=== PATIENT | female | born 1940 | race Caucasian/White ===

== ENCOUNTER 2017-04-01 09:29 | Inpatient (IN) | payer MEDICARE, OTHER ==
[2017-04-01] VITALS (15 sets, daily range): BP systolic 93–139; BP diastolic 52–73; PULSE 81–187; RESP 16–20; TEMP 98.6–99.9; O2SAT 90–100
[~2017-04-01] VITALS: Ht 160 cm; Wt 67.0 kg
[~2017-04-01 09:29] MED LIST: AMLO5CAP PO; GABA100C4 PO; GLUCTAB PO; LORTA5 PO; LOSA50 PO; NEXI40CA PO; PREG25 PO; WALKMIS6 XX
[2017-04-01] MEDS ORDERED: CEFEPIME INJ 2,000 MG in SODIUM CHLORIDE 0.9% INJ 100 ML IV STA (09:46)
[2017-04-01] MEDS ORDERED: VANCOMYCIN INJ 1,000 MG in SODIUM CHLOR 0.9% 250 ML INJ 250 ML IV STA (09:46)
[2017-04-01] MEDS ORDERED: SODIUM CHLOR 0.9% 1000 ML INJ 1,000 ML IV ONE ×3 (09:46→13:30)
[2017-04-01] MEDS ORDERED: SODIUM CHLOR 0.9% 1000 ML INJ 100 ML IV ONE (09:46)
[2017-04-01] MEDS ORDERED: RESP: ALBUTEROL 2.5 MG/IPRATROPIUM 0.5 MG NEB (SCH) INH ONE (10:00)
[2017-04-01] MEDS ORDERED: ACETAMINOPHEN 650 MG SUPP RECTAL ONE (10:00)
[2017-04-01] MEDS ORDERED: SODIUM CHLORIDE 0.9% FLUSH 10 ML FLUSH IVF PRN (10:00)
[2017-04-01] MEDS ORDERED: DILTIAZEM HCL 25 MG/5 ML VIAL IV PUSH ONE ×2 (10:00→12:15)
--- NOTE | 2017-04-01 10:15 | PD ---
HPI Chief Complaint: General Weakness Time Seen by Provider: 09:38 Travel History International Travel<30 days: No Contact w/Intl Traveler<30days: No Traveled to known affect area: No History of Present Illness HPI PATIENT INCREASED WEAKNESS, FEBRILE AT [facility], SENT VIA [facility], PER [facility] REPORTED AFIB WITH RVR IN 160'S, NO CARDIZEM GIVEN, TRANSPORTED HERE. PFSH Past Medical History Hx Anticoagulant Therapy: Yes Arthritis: Yes Asthma: No Atrial Fibrillation: Yes Autoimmune Disease: No Blood Disorders: No Anxiety: No Depression: No Heart Rhythm Problems: No Cancer: No Cardiovascular Problems: Yes High Cholesterol: No Chest Pain: Yes Congestive Heart Failure: Yes COPD: No Cerebrovascular Accident: Yes (TIA 2016) Diabetes: Yes Patient Takes Glucophage: Yes Diminished Hearing: No Endocrine: Yes Gastrointestinal Disorders: Yes (takes nexium) GERD: Yes Genitourinary: No Herniated Disk: Yes Hypertension: Yes Immune Disorder: No Implanted Vascular Access Dvce: Yes Musculoskeletal: Yes (OSTEOPENIA) Neurologic: Yes Psychiatric: No Reproductive: No Respiratory: Yes Sleep Apnea: No Ulcer: Yes Tetanus Vaccination: < 5 Years Influenza Vaccination: No Past Surgical History Abdominal Surgery: No AICD: No Appendectomy: Yes Arteriovenous Shunt: No Body Medical Devices: DENTAL IMPLANTS PLATES Cardiac Surgery: No Endocrine Surgery: No Eye Surgery: Yes Genitourinary Surgery: No Gynecologic Surgery: Yes Hysterectomy: Yes Insulin Pump: No Joint Replacement: Yes (BILATERAL KNEE REPLACEMENT) Neurologic Surgery: No Oral Surgery: Yes Pacemaker: No Thoracic Surgery: No Other Surgery: Yes Social History Alcohol Use: No (OCC WINE) Tobacco Use: No Substance Use: No Allergies-Medications (Allergen,Severity, Reaction): Coded Allergies: Contrast Media (Verified Allergy, Severe, VOMITING, 04/01/17) RASH, N&V Egg Allergy (Verified Allergy, Severe, VOMITING, 04/01/17) Iodine (Verified Allergy, Severe, VOMITING, 04/01/17) RASH, N&V Beta Blockers (Verified Adverse Reaction, Severe, HEADACHES, 04/01/17) Reported Meds & Prescriptions Reported Meds & Active Scripts Active Reported Duoneb (Ipratropium-Albuterol Neb) 0.5-2.5 Mg/3 Ml Neb 1 Nebule INH Q8HR NEB Lyrica (Pregabalin) 100 Mg Cap 100 Mg PO BID Losartan (Losartan Potassium) 100 Mg Tab 100 Mg PO DAILY Novolog Flexpen Inj (Insulin Aspart) 300 Unit/3 Ml Pen 1 Units SQ Tramadol (Tramadol HCl) 50 Mg Tab 50 Mg PO Q6H PRN Prednisone 5 Mg Tab 5 Mg PO DAILY Spiriva Handihaler (Tiotropium Inh) 18 Mcg Cap 18 Mcg INH DAILY 1 capsule = 18 mcg Hydralazine (Hydralazine HCl) 50 Mg Tab 50 Mg PO TID Take with a meal Nifedipine ER 24 HR (Nifedipine) 60 Mg Tab 60 Mg PO DAILY Nifedipine ER (Nifedipine) 90 Mg Tab Torsemide 10 Mg Tab 10 Mg PO DAILY Isosorbide Mononitrate ER (Isosorbide Mononitrate) 30 Mg Santos 30 Mg PO DAILY Potassium Chloride ER (Potassium Chloride) 10 Meq Cap 10 Meq PO BID Omeprazole 20 Mg Tab 20 Mg PO DAILY Mirtazapine 15 Mg Tab 15 Mg PO HS Loratadine 10 Mg Tab 10 Mg PO DAILY Eliquis (Apixaban) 2.5 Mg Tab 2.5 Mg PO BID Fluticasone Nasal [place] 50 Mcg/Act Naspr 50 Mcg EACH NARE BID 50 mcg/spray Atorvastatin (Atorvastatin Calcium) 10 Mg Tab 10 Mg PO HS Dulcolax Supp (Bisacodyl) 10 Mg Supp 10 Mg RECTAL DAILY PRN Review of Systems ROS Limitations: Clinical Condition General / Constitutional: Positive: Fever Cardiovascular: Positive: Palpitations, Irregular Rhythm, Tachycardia Gastrointestinal: Positive: Nausea Physical Exam Narrative GENERAL: SKIN: Warm and dry. HEAD: Atraumatic. Normocephalic. EYES: Pupils equal and round. No scleral icterus. No injection or drainage. ENT: No nasal bleeding or discharge. Mucous membranes pink and moist. NECK: Trachea midline. No JVD. CARDIOVASCULAR: TACHYCARDIC, IRREGULAR RESPIRATORY: No accessory muscle use. RONCHI DIFFUSELY, GOOD TIDAL VOLUME, HYPOXEMIC ON RA 88-90 GASTROINTESTINAL: Abdomen OBESE, SOFT, NO GUARDING, NO RIGIDITY, BUT TT PERCUSSION. MUSCULOSKELETAL: Extremities without clubbing, cyanosis, or edema. No obvious deformities. NEUROLOGICAL: Awake and alert. No obvious cranial nerve deficits. Motor grossly within normal limits. Five out of 5 muscle strength in the arms and legs. Normal speech. PSYCHIATRIC: Appropriate mood and affect; insight and judgment normal. Data Data Last Documented VS Vital Signs Date Time Temp Pulse Resp B/P Pulse Ox O2 Delivery O2 Flow Rate FiO2 04/01/17 13:38 107 18 100/55 97 Nasal Cannula 4 04/01/17 09:36 99.9 Orders Complete Blood Count With Diff (04/01/17 09:46) Comprehensive Metabolic Panel (04/01/17 09:46) B-Type Natriuretic Peptide (04/01/17 09:46) Act Partial Throm Time (Ptt) (04/01/17 09:46) Prothrombin Time / Inr (Pt) (04/01/17 09:46) Magnesium (Mg) (04/01/17 09:46) Ckmb (Isoenzyme) Profile (04/01/17 09:46) Troponin I (04/01/17 09:46) Arterial Blood Gas (Abg) (04/01/17 09:46) Urinalysis - C+S If Indicated (04/01/17 09:46) Influenzae A/B Antigen (04/01/17 09:46) Blood Culture (04/01/17 09:46) Iv Access Insert/Monitor (04/01/17 09:46) Electrocardiogram (04/01/17 09:46) Ecg Monitoring (04/01/17 09:46) Oximetry (04/01/17 09:46) Oxygen Administration (04/01/17 09:46) Chest, Single Ap (04/01/17 09:46) Albuterol-Ipratropium Neb (Duoneb Neb) (04/01/17 10:00) Blood Pressure (04/01/17 09:46) Vital Signs (04/01/17 09:46) Diltiazem Inj (Cardizem Inj) (04/01/17 10:00) Diltiazem Inj (Cardizem Inj) (04/01/17 10:00) Sodium Chloride 0.9% Flush (Ns Flush) (04/01/17 10:00) Lactic Acid Sepsis Protocol (04/01/17 09:46) Urinary Catheter Insert/Apply (04/01/17 09:46) Vancomycin Inj (Vancomycin Inj) (04/01/17 09:46) Cefepime Inj (Maxipime Inj) (04/01/17 09:46) Acetaminophen Supp (Tylenol Supp) (04/01/17 10:00) Sodium Chlor 0.9% 1000 Ml Inj (Ns 1000 M (04/01/17 09:46) Sodium Chlor 0.9% 1000 Ml Inj (Ns 1000 M (04/01/17 09:46) Sodium Chlor 0.9% 1000 Ml Inj (Ns 1000 M (04/01/17 09:46) Ct Abd/Pel W/O Iv Contrast (04/01/17 10:05) NPO (04/01/17 10:05) Urine Culture (04/01/17 10:45) Diltiazem Inj (Cardizem Inj) (04/01/17 12:00) Sodium Chlorid 0.9% 500 Ml Inj (Ns 500 M (04/01/17 11:45) Diltiazem Inj (Cardizem Inj) (04/01/17 12:15) Sodium Chlor 0.9% 1000 Ml Inj (Ns 1000 M (04/01/17 13:30) Admit Order (Ed Use Only) (04/01/17 14:00) Labs Laboratory Tests Test 04/01/17 04/01/17 04/01/17 04/01/17 09:55 10:00 10:11 10:45 White Blood Count 10.5 TH/MM3 Red Blood Count 4.57 MIL/MM3 Hemoglobin 12.4 GM/DL Hematocrit 37.5 % Mean Corpuscular Volume 82.1 FL Mean Corpuscular Hemoglobin 27.1 PG Mean Corpuscular Hemoglobin 33.0 % Concent Red Cell Distribution Width 16.0 % Platelet Count 217 TH/MM3 Mean Platelet Volume 9.1 FL Neutrophils (%) (Auto) 86.0 % Lymphocytes (%) (Auto) 6.8 % Monocytes (%) (Auto) 6.1 % Eosinophils (%) (Auto) 0.4 % Basophils (%) (Auto) 0.7 % Neutrophils # (Auto) 9.0 TH/MM3 Lymphocytes # (Auto) 0.7 TH/MM3 Monocytes # (Auto) 0.6 TH/MM3 Eosinophils # (Auto) 0.0 TH/MM3 Basophils # (Auto) 0.1 TH/MM3 CBC Comment DIFF FINAL Differential Comment Prothrombin Time 11.6 SEC Prothromb Time International 1.0 RATIO Ratio Activated Partial 23.1 SEC Thromboplast Time Sodium Level 146 MEQ/L Potassium Level 3.4 MEQ/L Chloride Level 110 MEQ/L Carbon Dioxide Level 24.4 MEQ/L Anion Gap 12 MEQ/L Blood Urea Nitrogen 48 MG/DL Creatinine 1.98 MG/DL Estimat Glomerular Filtration 24 ML/MIN Rate Random Glucose 162 MG/DL Calcium Level 9.0 MG/DL Magnesium Level 1.7 MG/DL Total Bilirubin 0.5 MG/DL Aspartate Amino Transf 12 U/L (AST/SGOT) Alanine Aminotransferase 12 U/L (ALT/SGPT) Alkaline Phosphatase 83 U/L Total Creatine Kinase 44 U/L Troponin I 0.03 NG/ML B-Type Natriuretic Peptide 139 PG/ML Total Protein 6.3 GM/DL Albumin 2.8 GM/DL Lactic Acid Level 3.2 mmol/L Blood Gas Puncture Site RT RADIAL Blood Gas Patient Temperature 98.6 Blood Gas HCO3 23 mmol/L Blood Gas Base Excess -0.4 mmol/L Blood Gas Oxygen Saturation 91 % Arterial Blood pH 7.50 Arterial Blood Partial 29 mmHg Pressure CO2 Arterial Blood Partial 63 mmHG Pressure O2 Arterial Blood Oxygen Content 15.7 Vol % Arterial Blood 0.0 % Carboxyhemoglobin Arterial Blood Methemoglobin 0.4 % Blood Gas Hemoglobin 12.4 G/DL Oxygen Delivery Device NASAL CANNULA Blood Gas Liter Flow 4 L/M Urine Color YELLOW Urine Turbidity CLEAR Urine pH 6.0 Urine Specific [place] 1.014 Urine Protein NEG mg/dL Urine Glucose (UA) NEG mg/dL Urine Ketones NEG mg/dL Urine Occult Blood NEG Urine Nitrite NEG Urine Bilirubin NEG Urine Urobilinogen LESS THAN 2.0 MG/DL Urine Leukocyte Esterase SMALL Urine RBC 2 /hpf Urine WBC 7 /hpf Urine Bacteria MANY /hpf Urine Hyaline Casts 1 /lpf Microscopic Urinalysis Comment CULTURE INDICATED Test 04/01/17 13:40 Lactic Acid Level 3.7 mmol/L [facility] Medical Decision Making Medical Screen Exam Complete: Yes Emergency Medical Condition: Yes Differential Diagnosis SEPSIS SOURCE UNKNOWN CURRENTLY, R/O PNA, R/O UTI, AFIB WITH RVR DUE TO FEVER VS DEHYDRATION, Narrative Course BROUGHT IN FROM [place] BY EMS, PATIETN HAD FEVER AT [facility] WITH NAUSEA/ VOMITING...CURRENTLY AWAITING CT ABD ...as [address] abd Diagnosis Primary Impression: UTI (urinary tract infection) Qualified Code: N30.00 - Acute cystitis without hematuria Additional Impression: Atrial fibrillation with RVR Efrain Davies MD April 01, 2017 10:15
[2017-04-01 10:21] LABS: BLOOD GAS BASE EXCESS -0.4 mmol/L (-2-2); BLOOD GAS HCO3 23 mmol/L (22-26); BLOOD GAS METHEMOGLOBIN 0.4 % (0-2); BLOOD GAS O2 HGB SATURATION 91 % (90-100); BLOOD GAS OXYGEN CONTENT 15.7 Vol % (12.0-20.0); BLOOD GAS PCO2 29 mmHg (38-42); BLOOD GAS PO2 63 mmHG (61-120); BLOOD GAS TOTAL HGB 12.4 G/DL (12.0-16.0); TEMP CORR TO 98.6
[2017-04-01 10:22] LABS: CRITICAL VALUE NO; DRAW SITE RT RADIAL; LITER FLOW 4 L/M; NUMBER OF ARTERIAL PUNCTURES 1; OXYGEN DEVICE NASAL CANNULA; STAT YES
[2017-04-01 10:45] LABS: BASOPHIL # 0.1 TH/MM3 (0-0.2); BASOPHIL % 0.7 % (0.0-2.0); EOSINOPHIL % 0.4 % (0.0-4.0); HEMATOCRIT 37.5 % (35.0-46.0); HEMO FLAGS DIFF FINAL; LYMPH % 6.8 % (9.0-44.0); LYMPHOCYTE # 0.7 TH/MM3 (1.0-4.8); MEAN CELL VOLUME 82.1 FL (80.0-100.0); MEAN CORPUSCULAR HEMOGLOBIN 27.1 PG (27.0-34.0); MONO % 6.1 % (0.0-8.0); PLATELET COUNT 217 TH/MM3 (150-450); RED BLOOD COUNT 4.57 MIL/MM3 (4.00-5.30); WHITE BLOOD COUNT 10.5 TH/MM3 (4.0-11.0)
[2017-04-01] MEDS: DILTIAZEM INJ 125 MG in SODIUM CHLORIDE 0.9% INJ 100 ML IV SCH (10:46)
[2017-04-01 11:05] LABS: APTT (PATIENT) 23.1 SEC (24.3-30.1); PROTHROMBIN TIME - PATIENT 11.6 SEC (9.8-11.6)
[2017-04-01 11:06] LABS: ALT (GPT) 12 U/L (10-53); ANION GAP 12 MEQ/L (5-15); AST (GOT) 12 U/L (15-37); BICARBONATE 24.4 MEQ/L (21.0-32.0); BLOOD UREA NITROGEN 48 MG/DL (7-18); CHLORIDE 110 MEQ/L (98-107); GLOMERULAR FILTRATION RATE 24 ML/MIN (>89); MAGNESIUM 1.7 MG/DL (1.5-2.5); POTASSIUM 3.4 MEQ/L (3.5-5.1); SODIUM (NA) 146 MEQ/L (136-145)
[2017-04-01 11:09] LABS: ALKALINE PHOSPHATASE 83 U/L (45-117); TOTAL BILIRUBIN ADULT 0.5 MG/DL (0.2-1.0)
[2017-04-01 11:15] LABS: BACTERIA, URINE MANY /hpf; BLOOD, URINE NEG (NEG); COMMENT (UR) CULTURE INDICATED; CULTURE IF INDICATED CULTURE INDICATED; GLUCOSE,URINE NEG (NEG); HYALINE CAST, URINE 1 /lpf (RARE); KETONE, URINE NEG (NEG); NITRITE,URINE NEG (NEG); URINE COLOR YELLOW (YELLW/STRAW)
[2017-04-01 11:16] LABS: CREATINE KINASE 44 U/L (26-192)
[2017-04-01] MEDS ORDERED: SODIUM CHLORID 0.9% 500 ML INJ 500 ML IV ONE (11:45)
[2017-04-01] MEDS ORDERED: DILTIAZEM HCL 50 MG/10 ML VIAL IV PUSH ONE (12:00)
[2017-04-01 12:31] LABS: LACTIC ACID GHOST NOT REPORTABLE
--- NOTE | 2017-04-01 13:08 | RADRPT ---
EXAM DATE/TIME: 04/01/2017 12:41 CORRECTION Corrected on: April 01, 2017; Added Ordering MD credentials [facility] COMPARISON: No previous studies available for comparison. INDICATIONS : Lower abdominal pain. ORAL CONTRAST: No oral contrast ingested. RADIATION DOSE: 10.05 CTDIvol (mGy) MEDICAL HISTORY : Cardiovascular disease. Hypertension. Diabetes mellitus type 2. SURGICAL HISTORY : Appendectomy. Hysterectomy. ENCOUNTER: Initial ACUITY: 1 day PAIN SCALE: Non-responsive LOCATION: Bilateral lower quadrant TECHNIQUE: Volumetric scanning of the abdomen and pelvis was performed. Using automated exposure control and ad justment of the mA and/or kV according to patient size, radiation dose was kept as low as reasonably achievable to obtain optimal diagnostic quality images. FINDINGS: There is bilateral lower lobe atelectasis versus pneumonia. The gallbladder is normal without wall th ickening or pericholecystic fluid. There is severe atrophy of the body and tail of the pancreas with residual pancreatic head tissue present. There is a single simple cyst in the right kidney measuring 3 cm. Examination of the pelvis demonstrates no evidence of free fluid or pelvic mass. No abnormally enlarg ed inguinal or retroperitoneal lymph nodes are present. A Callejas catheter is present within the bladde r which does not allow for evaluation.. There is diverticulosis without evidence of diverticulitis. T here is a large amount of feces within the rectum. CONCLUSION: 1. No evidence of acute abdominal or pelvic process. No masses are identified. 2. Diverticulosis without evidence of diverticulitis. 3. Bilateral lower lobe atelectasis versus pneumonia. 4. Severe atrophy of the body and tail of the pancreas Martín Jonas MD on April 01, 2017 at 12:54 Board Certified Radiologist. This report was verified electronically. on April 01, 2017 at 15:34 Board Certified Radiologist. This report was verified electronically.
--- NOTE | 2017-04-01 13:11 | RADRPT ---
EXAM DATE/TIME: 04/01/2017 10:37 CORRECTION Corrected on: April 01, 2017; Added Ordering MD credentials [facility] COMPARISON: CHEST SINGLE AP, June 10, 2016, 21:05. INDICATIONS : Short of breath, fever, and vomiting. MEDICAL HISTORY : Cerebrovascular disease. Hypertension. Cardiovascular disease SURGICAL HISTORY : None. ENCOUNTER: Initial ACUITY: 2 days PAIN SCORE: 0/10 LOCATION: Bilateral chest FINDINGS: There is mild compensated cardiomegaly with minimal parenchymal changes left base. Right lung is major r. There is no pneumothorax. CONCLUSION: 1. Cardiomegaly without failure. 2. Minimal parenchymal changes left base. Daryn Puente MD FACR on April 01, 2017 at 12:54 Board Certified Radiologist. This report was verified electronically. Board Certified Radiologist. This report was verified electronically.on April 01, 2017 at 15:32
[2017-04-01] MEDS ORDERED: NOVOINJ3 SQ (13:29)
[2017-04-01] MEDS ORDERED: LOSA100T PO (13:29)
[2017-04-01] MEDS ORDERED: OMEP20TA PO (13:29)
[2017-04-01] MEDS ORDERED: LORA10TA PO (13:29)
[2017-04-01] MEDS ORDERED: MIRTA15 PO (13:29)
[2017-04-01] MEDS ORDERED: POTA10CA PO (13:29)
[2017-04-01] MEDS ORDERED: IPRASOL INH (13:29)
[2017-04-01] MEDS ORDERED: ISOS30TA3 PO (13:29)
[2017-04-01] MEDS ORDERED: HYDR50TA15 PO (13:29)
[2017-04-01] MEDS ORDERED: FLUT50SP EACH NARE (13:29)
[2017-04-01] MEDS ORDERED: TRAM50TA PO (13:29)
[2017-04-01] MEDS ORDERED: ATOR10TA15 PO (13:29)
[2017-04-01] MEDS ORDERED: TORS10TA2 PO (13:29)
[2017-04-01] MEDS ORDERED: NIFE60TA58 PO (13:29)
[2017-04-01] MEDS ORDERED: SPIRCAP INH (13:29)
[2017-04-01] MEDS ORDERED: LYRI100C PO (13:29)
[2017-04-01] MEDS ORDERED: DULC10SU3 RECTAL (13:29)
[2017-04-01] MEDS ORDERED: APIX2.5T PO (13:29)
[2017-04-01] MEDS ORDERED: NIFE90TA2 (13:29)
[2017-04-01] MEDS ORDERED: PRED5TAB PO (13:29)
[2017-04-01] MEDS ORDERED: SODIUM CHLOR 0.9% 1000 ML INJ 1,000 ML IV SCH (14:08)
[2017-04-01] MEDS ORDERED: RESP: ALBUTEROL 2.5 MG/IPRATROPIUM 0.5 MG NEB (PRN) INH (14:15)
[2017-04-01] MEDS ORDERED: HEPARIN SODIUM - SQ 10,000 UNITS/ML VIAL SQ SCH (14:15)
[2017-04-01] MEDS ORDERED: SODIUM CHLORIDE 0.9% FLUSH 10 ML FLUSH IV FLUSH PRN (14:15)
[2017-04-01] MEDS ORDERED: Vancomycin Consult Pharmacy 1 EA OTHER SCH (14:15)
[2017-04-01] MEDS ORDERED: BISACODYL 10 MG SUPP RECTAL PRN (14:15)
--- NOTE | 2017-04-01 17:59 | MH ---
cc: TATY FLORENCE DATE OF ADMISSION 04/01/2017 DATE OF 1940 CHIEF COMPLAINT Fast heart rate and fever. Travel in the last 30 days, none. HISTORY OF PRESENT ILLNESS This is a pleasant 77-year-old white female who had been in her usual state of health up until the past few days. The patient noted that she has had some dysuria along with some mild retention. Within the last 24 hours her symptoms became worse and she developed fever and chills last night. The patient was able to eat her supper last night but had an episode of nausea and vomiting right after supper. The patient denies any body aches. No headaches. No recent weight gain or weight loss. She denies any chest pain and no shortness of breath. She does have a history of atrial fibrillation and cardiovascular disease and she is diabetic type 2 but up until the past few days she had been doing fine. The patient has been at the [facility] facility since last September 2016. She states that before that time she was living at home with her son. While her son was at work she fell. Son at that point felt like she was not safe to be alone and she has been at [facility] ever since. The staff at [facility] noted the patient to be extremely weak. They called [facility] to transport and bring her to the ER for further evaluation. She was noted to have a fast heart rate, irregular and febrile. She was brought to the emergency room and treated at that time. The patient was given Cardizem boluses. Up to this point she has had two boluses and she is on 10 milligrams per minute of Cardizem IV. Her heart rate is controlled in the 90s-110 range. Her blood pressure initially was stable at 139/73 but did get as low as 93/55 during the episodes of Cardizem boluses. She is back now at 107/55. Heart rate is around 106. The patient is drowsy but can respond to verbal stimuli and a fair historian. PAST MEDICAL HISTORY According to the records and the patient: 1. Arthritis. 2. History of atrial fibrillation. 3. Cardiovascular disease. 4. History of chest pain. 5. History of congestive heart failure. 6. Transient ischemic attacks in 2016. 7. Diabetes mellitus type 2. The patient does take Glucophage. 8. Gastroesophageal reflux disease. 9. Degenerative disc disease with some herniated disc. 10. Osteopenia. 11. Previous urinary tract infections. PAST SURGICAL HISTORY 1. Dental implant plates. 2. Appendectomy. 3. Eye surgery. 4. Bilateral knee replacement. 5. Hysterectomy. ALLERGIES BETA PETROS, CONTRAST MEDIA, EGG ALLERGY AND IODINE. MEDICATIONS Noted: 1. DuoNeb. 2. Lyrica. 3. Losartan. 4. NovoLog flex pen. 5. Tramadol. 6. Prednisone. 7. Spiriva. 8. Hydralazine. 9. Nifedipine. 10. Torsemide. 11. Isosorbide. 12. Potassium. 13. Omeprazole. 14. Mirtazapine. 15. Loratadine. 16. Eliquis. 17. Fluconazole. 18. Atorvastatin. 19. Dulcolax suppository. SOCIAL HISTORY The patient is single. Currently is housed in the [facility] facility since September of 2016. She does have a son here in town who she states is a nurse. Before her retirement facility visit the patient was an occasional wine drinker but denied any tobacco or illicit drug use. REVIEW OF SYSTEMS A 12 point review was obtained. Positives noted in the history of present illness which include nausea, vomiting, chills, fever, dysuria, some urinary retention, tachycardia, irregular rhythm, generalized weakness. Otherwise systems are negative and unremarkable. PHYSICAL EXAMINATION VITAL SIGNS: Currently temperature is 99, pulse 97 to 121, respiratory rate 20, blood pressure 107/55. O2 saturation 98%. Nasal cannula is 4 liters. GENERAL: Mildly obese, elderly white female looks to be her stated age, resting on the stretcher. Her eyes are closed. She does appear to be weakened but is answering most questions appropriately. SKIN: Pale mucous membranes. Warm and dry. Turgor is poor and dry. HEENT: Atraumatic, normocephalic. Pupils equal, round, reactive to light and accommodation at 2. No nasal discharge. Mucous membranes with special attention to tongue are very dry. Complains of a mild sore throat but no exudate seen. NECK: Supple. Trachea is midline. CARDIOVASCULAR: Irregular rhythm. Tachycardia for the most part mildly over 100. Atrial fibrillation. No edema. Pulses intact. LUNGS: Mild rhonchi clears with occasional cough. Otherwise lungs are essentially clear. ABDOMEN: Round. Obese. Soft. Active bowel sounds. GENITOURINARY: Callejas catheter shows clear yellow urine with some sediment. MUSCULOSKELETAL: Can move her extremities weakly but with purpose. No obvious deformities. NEUROLOGIC: She is drowsy but does respond to verbal stimuli. Speech is clear and understandable. PSYCHIATRIC: Mood and affect are appropriate. LABORATORY DATA Diagnostic data, WBC count 10.5, RBC 4.57, hemoglobin 12.4, hematocrit 37.5, platelet count 217. Neutrophil percentage 86. Lymphocyte count 6.8. PT INR is 1.0. Chemistries, sodium 146, potassium 3.4, chloride 110, BUN 48, creatinine 1.98, GFR 24. Random glucose 162. Lactic acid was initially 3.2, increased to 3.7 on the next draw. Calcium is 9. Magnesium is 1.7. Total bilirubin 0.5. AST 12, ALT 12. Alkaline phosphatase 83. Troponin 0.03. BNP 139. Total protein 6.3. Albumin 2.8. Urine shows clear yellow urine. PH is 6, specific gravity 1.014, negative for glucose, ketones, occult blood, nitrites, total bilirubin. Small amount of leukocyte esterase. Too many to count of urine bacteria. One hyaline cast. Culture is indicated and pending. IMAGING A chest x-ray shows cardiomegaly without heart failure. Minimal changes to the left base. Abdomen, pelvis CT scan shows no evidence of acute abdominal or pelvic process. No masses are identified. Diverticulosis without evidence of diverticulitis. Bilateral lower lobes atelectasis without pneumonia. Severe atrophy of the body and tail of the pancreas. ASSESSMENT AND PLAN 1. Atrial fibrillation with rapid ventricular response uncontrolled. 2. Lactic acid sepsis. 3. Urinary tract infection with possible urosepsis. 4. Pneumonia bilateral lower lobes. 5. Acute kidney injury with chronic kidney disease. 6. History of pulmonary hypertension. 7. Hypokalemia. 8. Hypernatremia. 9. Protein calorie malnutrition. 10. Diabetes mellitus type 2, mild uncontrolled. 11. History of chronic diastolic congestive heart failure . Our plan is to admit inpatient status. Vital signs will be q.1-4 h as warranted and based on her needs. While she is on the Cardizem drip she will be monitored every hour. When in the emergency room the patient was given hydration with close to a liter and a half of fluid. Callejas catheter was placed in for accurate intensive ins and outs for now. She was given a dose of Maxipime and a dose of vancomycin. She was bolused with Cardizem to control her rate and rhythm. Since admission she has had two boluses of Cardizem currently at 10 milligrams. She is now starting to climb with a heart rate greater than 100. We will continue to monitor. She may need to be rebolused and Cardizem maxed at 15 milligrams per minute. Oxygen per nasal cannula as needed. DuoNebs q.4h while awake. Urine culture and sensitivity will be pending. We will monitor her labs in the morning. We will give some p.o. potassium for her hypokalemia and recheck a BMP in the morning. Meds have been reconciled. Peptic ulcer disease prophylaxis with Protonix. Ultram for pain management. Sequential compression devices for and Eliquis for her DVT prophylaxis. The patient will be continued on vancomycin, pharmacy to dose and her Maxipime. An 1800 calorie ADA diet. To my knowledge the patient is full code, full aggressive care and we will follow. Dictated by: PATRICK Molina Taty Florence MD JP/KK /4:31 PM /5:07 PM ptseen and examined as above in ER chart was reviewed dw ER physician sharon with patrick about plan of care sharon pt cond guarded MTDD
[2017-04-01] MEDS: hydrALAZINE HCL 50 MG TAB PO SCH ×2 (18:00→18:18)
[2017-04-01] MEDS: CEFEPIME INJ 2,000 MG in SODIUM CHLORIDE 0.9% INJ 100 ML IV SCH (18:17)
[2017-04-01] MEDS: FLUTICASONE PROPIONATE 50 MCG/ACT 16 GM NASAL SPRAY EACH NARE SCH (21:00)
[2017-04-01] MEDS: SODIUM CHLORIDE 0.9% FLUSH 10 ML FLUSH IV FLUSH SCH (21:00)
[2017-04-01] MEDS ORDERED: VANCOMYCIN 1,000 MG/NS 250 ML IV ONE ×2 (22:00)
[2017-04-01] MEDS: ATORVASTATIN 10 MG TAB PO SCH (22:07)
[2017-04-01] MEDS: MIRTAZAPINE 15 MG TAB PO SCH (22:07)
[2017-04-01] MEDS: APIXABAN 2.5 MG TABLET PO SCH (22:07)
[2017-04-01] MEDS: POTASSIUM CHLORIDE 10 MEQ CAP PO SCH (22:07)
[2017-04-01] MEDS: PREGABALIN 100 MG CAP PO SCH (22:07)
[2017-04-02] VITALS (20 sets, daily range): BP systolic 133–156; BP diastolic 60–77; PULSE 80–113; RESP 18–22; TEMP 99–99.2; O2SAT 90–96
[2017-04-02] MEDS: CEFEPIME INJ 2,000 MG in SODIUM CHLORIDE 0.9% INJ 100 ML IV SCH ×3 (02:00→21:26)
[2017-04-02 05:57] LABS: AUTOMATED NEUTROPHIL # 8.4 TH/MM3 (1.8-7.7); BASOPHIL # 0.1 TH/MM3 (0-0.2); EOSINOPHIL # 0.2 TH/MM3 (0-0.4); EOSINOPHIL % 1.9 % (0.0-4.0); HEMATOCRIT 33.4 % (35.0-46.0); HEMO FLAGS DIFF FINAL; LYMPH % 6.5 % (9.0-44.0); LYMPHOCYTE # 0.7 TH/MM3 (1.0-4.8); MEAN CELL VOLUME 82.6 FL (80.0-100.0); MEAN CORPUSCULAR HEMOGLOBIN 26.9 PG (27.0-34.0); MEAN CORPUSCULAR HGB CONC 32.6 % (32.0-36.0); MONO % 6.9 % (0.0-8.0); NEUT % 83.7 % (16.0-70.0); PLATELET COUNT 186 TH/MM3 (150-450); RED BLOOD COUNT 4.04 MIL/MM3 (4.00-5.30); RED CELL DISTRIBUTION WIDTH 15.5 % (11.6-17.2); WHITE BLOOD COUNT 10.1 TH/MM3 (4.0-11.0)
[2017-04-02 06:23] LABS: BICARBONATE 23.6 MEQ/L (21.0-32.0); POTASSIUM 3.9 MEQ/L (3.5-5.1)
[2017-04-02] MEDS: ISOSORBIDE MONONITRATE 30 MG TAB PO SCH (07:00)
--- NOTE | 2017-04-02 08:24 | HHI.PR ---
Subjective Subjective Remarks + cough, can't bring up secretions mildly sob no cp weak no fever SR on monitor, no afib Review of Systems Constitutional Constitutional Remarks 12 point ROS completed, negative except as noted above Vitals/Results Intake & Output 04/01/17 04/01/17 04/02/17 15:00 23:00 07:00 Intake Total 470 ml Output Total 800 ml 1100 ml Balance -800 ml -630 ml Intake Oral 120 ml IV Total 350 ml Output Urine Total 800 ml 1100 ml # Voids 0 Vital Signs Vital Signs Date Time Temp Pulse Resp B/P Pulse Ox O2 Delivery O2 Flow Rate FiO2 04/02/17 06:00 80 04/02/17 05:00 80 04/02/17 04:00 90 04/02/17 03:00 87 04/02/17 03:00 99.2 91 18 133/60 93 04/02/17 02:00 98 04/02/17 01:00 80 04/02/17 00:00 84 04/01/17 23:00 97 04/01/17 23:00 99.7 81 18 126/52 94 04/01/17 22:00 90 04/01/17 21:00 98 04/01/17 20:30 98.6 137 18 127/63 95 04/01/17 18:24 110 18 107/65 98 Nasal Cannula 4 04/01/17 17:20 93 20 125/60 96 Nasal Cannula 4 04/01/17 17:17 96 Nasal Cannula 3.00 04/01/17 15:14 99.0 97 20 107/55 98 Nasal Cannula 4 04/01/17 14:26 121 18 116/53 95 Nasal Cannula 4 04/01/17 13:38 107 18 100/55 97 Nasal Cannula 4 04/01/17 12:35 86 18 93/55 98 Nasal Cannula 4 04/01/17 10:59 160 18 139/73 100 Nasal Cannula 4 04/01/17 10:37 18 96 Nasal Cannula 4 04/01/17 10:37 165 18 139/73 96 Nasal Cannula 4 04/01/17 10:37 96 Nasal Cannula 4 04/01/17 09:46 180 18 129/71 96 Nasal Cannula 4 04/01/17 09:46 170 18 96 Nasal Cannula 4 04/01/17 09:36 99.9 187 16 90 CBC/BMP: 04/02/17 0512 04/02/17 0512 Lab Results Laboratory Tests Test 04/01/17 04/01/17 04/01/17 04/01/17 09:55 10:00 10:11 10:45 White Blood Count 10.5 TH/MM3 Red Blood Count 4.57 MIL/MM3 Hemoglobin 12.4 GM/DL Hematocrit 37.5 % Mean Corpuscular Volume 82.1 FL Mean Corpuscular Hemoglobin 27.1 PG Mean Corpuscular Hemoglobin 33.0 % Concent Red Cell Distribution Width 16.0 % Platelet Count 217 TH/MM3 Mean Platelet Volume 9.1 FL Neutrophils (%) (Auto) 86.0 % Lymphocytes (%) (Auto) 6.8 % Monocytes (%) (Auto) 6.1 % Eosinophils (%) (Auto) 0.4 % Basophils (%) (Auto) 0.7 % Neutrophils # (Auto) 9.0 TH/MM3 Lymphocytes # (Auto) 0.7 TH/MM3 Monocytes # (Auto) 0.6 TH/MM3 Eosinophils # (Auto) 0.0 TH/MM3 Basophils # (Auto) 0.1 TH/MM3 CBC Comment DIFF FINAL Differential Comment Prothrombin Time 11.6 SEC Prothromb Time International 1.0 RATIO Ratio Activated Partial 23.1 SEC Thromboplast Time Sodium Level 146 MEQ/L Potassium Level 3.4 MEQ/L Chloride Level 110 MEQ/L Carbon Dioxide Level 24.4 MEQ/L Anion Gap 12 MEQ/L Blood Urea Nitrogen 48 MG/DL Creatinine 1.98 MG/DL Estimat Glomerular Filtration 24 ML/MIN Rate Random Glucose 162 MG/DL Calcium Level 9.0 MG/DL Magnesium Level 1.7 MG/DL Total Bilirubin 0.5 MG/DL Aspartate Amino Transf 12 U/L (AST/SGOT) Alanine Aminotransferase 12 U/L (ALT/SGPT) Alkaline Phosphatase 83 U/L Total Creatine Kinase 44 U/L Troponin I 0.03 NG/ML B-Type Natriuretic Peptide 139 PG/ML Total Protein 6.3 GM/DL Albumin 2.8 GM/DL Lactic Acid Level 3.2 mmol/L Blood Gas Puncture Site RT RADIAL Blood Gas Patient Temperature 98.6 Blood Gas HCO3 23 mmol/L Blood Gas Base Excess -0.4 mmol/L Blood Gas Oxygen Saturation 91 % Arterial Blood pH 7.50 Arterial Blood Partial 29 mmHg Pressure CO2 Arterial Blood Partial 63 mmHG Pressure O2 Arterial Blood Oxygen Content 15.7 Vol % Arterial Blood 0.0 % Carboxyhemoglobin Arterial Blood Methemoglobin 0.4 % Blood Gas Hemoglobin 12.4 G/DL Oxygen Delivery Device NASAL CANNULA Blood Gas Liter Flow 4 L/M Urine Color YELLOW Urine Turbidity CLEAR Urine pH 6.0 Urine Specific [place] 1.014 Urine Protein NEG mg/dL Urine Glucose (UA) NEG mg/dL Urine Ketones NEG mg/dL Urine Occult Blood NEG Urine Nitrite NEG Urine Bilirubin NEG Urine Urobilinogen LESS THAN 2.0 MG/DL Urine Leukocyte Esterase SMALL Urine RBC 2 /hpf Urine WBC 7 /hpf Urine Bacteria MANY /hpf Urine Hyaline Casts 1 /lpf Microscopic Urinalysis Comment CULTURE INDICATED Test 04/01/17 04/02/17 13:40 05:12 Lactic Acid Level 3.7 mmol/L White Blood Count 10.1 TH/MM3 Red Blood Count 4.04 MIL/MM3 Hemoglobin 10.9 GM/DL Hematocrit 33.4 % Mean Corpuscular Volume 82.6 FL Mean Corpuscular Hemoglobin 26.9 PG Mean Corpuscular Hemoglobin 32.6 % Concent Red Cell Distribution Width 15.5 % Platelet Count 186 TH/MM3 Mean Platelet Volume 9.2 FL Neutrophils (%) (Auto) 83.7 % Lymphocytes (%) (Auto) 6.5 % Monocytes (%) (Auto) 6.9 % Eosinophils (%) (Auto) 1.9 % Basophils (%) (Auto) 1.0 % Neutrophils # (Auto) 8.4 TH/MM3 Lymphocytes # (Auto) 0.7 TH/MM3 Monocytes # (Auto) 0.7 TH/MM3 Eosinophils # (Auto) 0.2 TH/MM3 Basophils # (Auto) 0.1 TH/MM3 CBC Comment DIFF FINAL Differential Comment Sodium Level 150 MEQ/L Potassium Level 3.9 MEQ/L Chloride Level 116 MEQ/L Carbon Dioxide Level 23.6 MEQ/L Anion Gap 10 MEQ/L Blood Urea Nitrogen 45 MG/DL Creatinine 1.74 MG/DL Estimat Glomerular Filtration 28 ML/MIN Rate Random Glucose 134 MG/DL Calcium Level 8.6 MG/DL Microbiology Microbiology 04/01/17 Aerobic Blood Culture, Received Pending 04/01/17 Anaerobic Blood Culture, Received Pending 04/01/17 Aerobic Blood Culture, Received Pending 04/01/17 Anaerobic Blood Culture, Received Pending 04/01/17 Influenza Types A,B Antigen (BRANDON) - Final, Complete NEGATIVE FOR FLU A AND B ANTIGEN.... 04/01/17 Urine Culture, Received Pending Physical Exam General General Appearance: Well Developed, No Acute Distress, Comfortable Eyes Eye Exam: Pupils Equal, Pupils Reactive Ears & Nose Ears & Nose Exam: Nasal Mucosa [place] Throat Throat Exam: Oral Mucosa [place] & Moist Neck Neck Exam: Neck Supple Pulmonary Resp Exam: Rhonchi Cardiology CV Exam: Regular, Normal Sinus Rhythm, Murmur Gastrointestinal/Abdomen GI Exam: Soft, Non-Tender, Bowel Sounds Present, Non-Distended Musculoskeletal MS Exam: Joints Intact Integumentary Skin Exam: Warm, Dry Extremeties Extremities Exam: Pedal Pulses Palpable Neurologic Neuro Exam: Alert, Awake, Oriented, Speech Clear, Moving All Extremities, No Focal Deficits Psychiatric Psych Exam: Appropriate Responses VTE Prophylaxis VTE Remarks Eliquis Assessment/Plan Problem List: (1) Sepsis (2) Atrial fibrillation with RVR (3) PNA (pneumonia) (4) UTI (urinary tract infection) (5) SHANNAN (acute kidney injury) (6) DM (diabetes mellitus) (7) Chronic diastolic CHF (congestive heart failure) (8) History of CVA (cerebrovascular accident) (9) HTN (hypertension) (10) Hyperlipidemia (11) Hypernatremia Assessment/Plan sepsis, sec. PNA, UTI continue abx follow cultures lactic acid trending down cautious hydration Hypoxia, SOB continue oxygen Duonebs QID and PRN add Mucinex SHANNAN, improving BMP in am afib RVR cardizem drip SR on monitor change to PO cardizem and wean off drip stop Procardia continue Eliquis Hypernatremia change to D5W DM II accuchecks AC/HS with ISS ? coughing with foods Swallow eval Continue with Eliquis for DVT prophylaxis PT eval Labs in am condition guarded D/W RN D/W Dr. Florence D/W pt. This patient was seen by myself and Dr. Florence, this note is written on his behalf. Problem Qualifiers (1) Sepsis: Qualified Code: A41.9 - Sepsis, due to unspecified organism (2) PNA (pneumonia): (3) UTI (urinary tract infection): Qualified Code: N30.00 - Acute cystitis without hematuria (4) DM (diabetes mellitus): (5) HTN (hypertension): Qualified Code: I10 - Essential hypertension (6) Hyperlipidemia: Qualified Code: E78.5 - Hyperlipidemia, unspecified hyperlipidemia type Nanda Cisneros April 02, 2017 08:24
[2017-04-02] MEDS ORDERED: GLUCAGON 1 MG/ML VIAL OTHER PRN (08:30)
[2017-04-02] MEDS ORDERED: DEXTROSE 50% IN WATER 50 ML VIAL(D50) IV PRN (08:30)
[2017-04-02] MEDS: LOSARTAN 50 MG TAB PO SCH (09:00)
[2017-04-02] MEDS: APIXABAN 2.5 MG TABLET PO SCH ×2 (09:00→21:32)
[2017-04-02] MEDS ORDERED: NIFEdipine 60 MG SUSTAINED RELEASE TAB PO SCH (09:00)
[2017-04-02] MEDS: TIOTROPIUM BROMIDE 18 MCG INH INH SCH (09:00)
[2017-04-02] MEDS: POTASSIUM CHLORIDE 10 MEQ CAP PO SCH ×2 (09:00→21:31)
[2017-04-02] MEDS: TORSEMIDE 5 MG TAB PO SCH ×2 (09:00→14:41)
[2017-04-02] MEDS: PANTOPRAZOLE SOD 20 MG DELAYED RELEASE TAB PO SCH (09:00)
[2017-04-02] MEDS ORDERED: predniSONE 5 MG TAB PO SCH (09:00)
[2017-04-02] MEDS: hydrALAZINE HCL 50 MG TAB PO SCH ×3 (09:00→18:07)
[2017-04-02] MEDS: LORATADINE 10 MG TAB PO SCH (09:00)
[2017-04-02] MEDS: guaiFENesin E.R. 600 MG TAB PO SCH ×2 (09:30→21:31)
[2017-04-02 10:19] LABS: BLOOD GAS BASE EXCESS -2.2 mmol/L (-2-2); BLOOD GAS CARBOXYHEMOGLOBIN 1.5 % (0-4); BLOOD GAS HCO3 22 mmol/L (22-26); BLOOD GAS METHEMOGLOBIN 1.7 % (0-2); BLOOD GAS O2 HGB SATURATION 82 % (90-100); BLOOD GAS PCO2 33 mmHg (38-42); BLOOD GAS PO2 51 mmHg (61-120); BLOOD GAS TOTAL HGB 10.4 G/DL (12.0-16.0); CRITICAL VALUE YES; LITER FLOW 6 L/M; OXYGEN DEVICE NASAL CANNULA; TEMP CORR TO 98.6
[2017-04-02 10:20] LABS: DRAW SITE RT BRACHIAL; NUMBER OF ARTERIAL PUNCTURES 2; STAT YES; ULNAR PULSE PRESENT
[2017-04-02] MEDS: INSULIN ASPART SUPPLEMENTAL SCALE SQ SCH ×3 (11:00→21:00)
[2017-04-02] MEDS: RESP: ALBUTEROL 2.5 MG/IPRATROPIUM 0.5 MG NEB (SCH) NEB ×3 (11:34→19:59)
[2017-04-02] MEDS: DEXTROSE 5% IN WATE 1000ML INJ 1,000 ML IV SCH (11:56)
[2017-04-02] MEDS: FLUTICASONE PROPIONATE 50 MCG/ACT 16 GM NASAL SPRAY EACH NARE SCH ×2 (12:09→21:00)
[2017-04-02] MEDS: SODIUM CHLORIDE 0.9% FLUSH 10 ML FLUSH IV FLUSH SCH ×2 (12:10→21:00)
[2017-04-02] MEDS: DILTIAZEM HCL 30 MG TAB PO SCH ×3 (14:36→21:31)
--- NOTE | 2017-04-02 14:52 | EKG ---
Date Performed: 04/01/2017 Time Performed: 11:24:08 PTAGE: 77 years EKG: ATRIAL FLUTTER/TACHYCARDIA WITH RAPID VENTRICULAR RESPONSE ST DEVIATION AND MODERATE T-WAVE ABNORMALITY, CONSIDER LATERAL ISCHEMIA Compared to previous tracing tachycardia is new Clinical sveta elation is strongly recommended ABNORMAL ECG PREVIOUS TRACING : 06/11/2016 05.29 DOCTOR: Seth Amado Interpretating Date/Time 04/02/2017 14:51:54
--- NOTE | 2017-04-02 18:02 | RADRPT ---
EXAM DATE/TIME: 04/02/2017 17:40 [facility] COMPARISON: CHEST SINGLE AP, April 01, 2017, 10:37. INDICATIONS : Respiratory distress. MEDICAL HISTORY : None. SURGICAL HISTORY : None. ENCOUNTER: Initial ACUITY: 1 day PAIN SCORE: 0/10 LOCATION: Bilateral chest FINDINGS: A single view of the chest demonstrates the lungs to be symmetrically aerated without evidence of mas s, infiltrate or effusion except for subtle infiltrate in the left lower lobe. The cardiomediastinal contours are unremarkable except for mild cardiomegaly. Marked atherosclerotic disease.. Numerous he aled left-sided rib fractures CONCLUSION: Stable mild consolidation left lower lobe. Maxime Ni MD on April 02, 2017 at 18:00 Board Certified Radiologist. This report was verified electronically.
[2017-04-02] MEDS: DILTIAZEM INJ 125 MG in SODIUM CHLORIDE 0.9% INJ 100 ML IV SCH (21:25)
[2017-04-02] MEDS: MIRTAZAPINE 15 MG TAB PO SCH (21:31)
[2017-04-02] MEDS: ATORVASTATIN 10 MG TAB PO SCH (21:31)
--- NOTE | 2017-04-02 21:48 | MB ---
cc: DAISY RUSH DATE OF CONSULTATION 04/02/[address] Florence REASON FOR CONSULTATION Respiratory insufficiency PRESENT ILLNESS Ms. Melanie Granda is a 77-year-old female with history of atrial fibrillation. The patient was at [facility]. She started having worsening of her shortness of breath, episode of nausea and vomiting and she was found to be in atrial fibrillation with rapid ventricular rate. She was brought to the hospital. She was started on Cardizem bolus and started on the trache. She is currently on Venti-mask. She does not like using it, is getting sick of it. She takes it off frequently. Even after taking off Venti-mask she does maintain oxygen saturations. She denies any chest pain. No fevers. No night sweats. PAST MEDICAL HISTORY 1. History of CVA. He had a major stroke 15 years ago and another one in 2005 2. History of diabetes mellitus, 3. Atrial fibrillation, 4. History of tinea 5. Congestive heart failure, 6. Coronary artery disease. MEDICATIONS Currently taking 1. Prednisone 20 mg a day, 2. Cefepime 2 grams q. 12-hour. 3. Diltiazem 30 mg four times a day 4. Albuterol/Atrovent nebulizer treatment 5. Guaifenesin 600 mg daily 6. Loratadine 10 mg daily 7. Losartan 100 mg a day. 8. Spiriva once a day, 9. Demodex 10 mg daily 10. Protonix 20 mg a day. 11. Imdur 30 mg a day. 12. Lipitor 10 mg a day. 13. Flonase nasal spray. 14. Mirtazapine 15 mg at nighttime. 15. Potassium 10 mEq a day 16. Lyrica 100 mg twice a day. 17. Hydralazine 50 mg three times a day. ALLERGIES CONTRAST MEDIA EGGS IODINE BETA BLOCKERS SOCIAL HISTORY She is a . She lives in the [place]. Currently, she has no history of smoking or alcohol abuse. 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 FAMILY HISTORY She has three children. Her son is at the bedside. REVIEW OF SYSTEMS She feels weak and tired, has history of stroke. No malignancy. No DVT or pulmonary embolism. PHYSICAL EXAMINATION GENERAL: Elderly female mildly short of breath. VITAL SIGNS: Blood pressure 156/73, heart rate 18, respirations 22, temperature 99 HEENT: Pupils are equal and reactive. She had bilateral cataract surgery done. Oral mucosa, nasal mucosa normal. JVP not raised. CHEST: She has few basal rales. CARDIOVASCULAR: S1, S2 normal. ABDOMEN: Soft, nondistended. Bowel sounds are present. EXTREMITIES: Trace pedal edema. ALARM SIGNAL OPERATOR: She is alert and oriented x3. No focal deficit. LABORATORY DATA White count 10.1, hemoglobin 10.9, hematocrit 33.4, MCV 82, platelet count 186. Sodium 150, potassium 3.9, chloride 106, CO2 23, BUN 45, creatinine 1.74. Blood gas on 6 liters nasal cannula - pH 7.43, pCO2 33, pO2 51, bicarb 22. Currently, she is on Venti-mask. maintains good saturation. IMAGING STUDIES Her chest x-ray shows she has mild consolidation in the left lower base. IMPRESSION 1. Shortness of breath, mild hypoxia. 2. Left basal infiltrate. 3. Atrial fibrillation with rapid ventricular rate 4. History of CVA. PLAN I discussed with the patient and her son at the bedside. Her influenza antigen is negative. Blood cultures so far are negative. We will continue treatment with antibiotic. Give her aerosol treatment. Wean her oxygen. Try nasal cannula to see if she can maintain oxygen saturation greater than 90% because she does not like the mask on her face. Her heart rate is better controlled with Cardizem. Further treatment will depend on the course in the hospital. Thank you, Dr. Florence, for this consultation. MD TORIBIO James/SA /7:33 PM /9:29 PM MTDMargarita
[2017-04-03] VITALS (23 sets, daily range): BP systolic 144–168; BP diastolic 59–74; PULSE 72–92; RESP 18–20; TEMP 98.1–98.9; O2SAT 92–96
[2017-04-03 05:55] LABS: HEMATOCRIT 34.9 % (35.0-46.0); MEAN CELL VOLUME 83.4 FL (80.0-100.0); MEAN CORPUSCULAR HEMOGLOBIN 26.4 PG (27.0-34.0); MEAN CORPUSCULAR HGB CONC 31.6 % (32.0-36.0); PLATELET COUNT 194 TH/MM3 (150-450); RED BLOOD COUNT 4.19 MIL/MM3 (4.00-5.30); RED CELL DISTRIBUTION WIDTH 15.7 % (11.6-17.2); REVIEW FLAG FINAL; WHITE BLOOD COUNT 9.5 TH/MM3 (4.0-11.0)
[2017-04-03 06:18] LABS: BICARBONATE 23.8 MEQ/L (21.0-32.0); POTASSIUM 3.6 MEQ/L (3.5-5.1)
[2017-04-03] MEDS: ISOSORBIDE MONONITRATE 30 MG TAB PO SCH (06:35)
[2017-04-03] MEDS: INSULIN ASPART SUPPLEMENTAL SCALE SQ SCH ×4 (06:35→20:42)
[2017-04-03] MEDS: RESP: ALBUTEROL 2.5 MG/IPRATROPIUM 0.5 MG NEB (SCH) NEB ×4 (07:43→20:03)
[2017-04-03] MEDS: POTASSIUM CHLORIDE 10 MEQ CAP PO SCH ×2 (08:36→20:28)
[2017-04-03] MEDS: PANTOPRAZOLE SOD 20 MG DELAYED RELEASE TAB PO SCH (08:36)
[2017-04-03] MEDS: DILTIAZEM HCL 30 MG TAB PO SCH (08:36)
[2017-04-03] MEDS: PREGABALIN 100 MG CAP PO SCH ×3 (08:36→20:32)
[2017-04-03] MEDS: LORATADINE 10 MG TAB PO SCH (08:37)
[2017-04-03] MEDS: APIXABAN 2.5 MG TABLET PO SCH ×2 (08:37→20:28)
[2017-04-03] MEDS: LOSARTAN 50 MG TAB PO SCH (08:37)
[2017-04-03] MEDS: hydrALAZINE HCL 50 MG TAB PO SCH ×3 (08:37→18:18)
[2017-04-03] MEDS: TORSEMIDE 5 MG TAB PO SCH (08:37)
[2017-04-03] MEDS: guaiFENesin E.R. 600 MG TAB PO SCH ×2 (08:37→20:28)
[2017-04-03] MEDS: FLUTICASONE PROPIONATE 50 MCG/ACT 16 GM NASAL SPRAY EACH NARE SCH ×2 (08:38→20:29)
[2017-04-03] MEDS ORDERED: predniSONE 20 MG TAB PO SCH (09:00)
[2017-04-03] MEDS: SODIUM CHLORIDE 0.9% FLUSH 10 ML FLUSH IV FLUSH SCH ×2 (09:00→20:27)
[2017-04-03] MEDS: TIOTROPIUM BROMIDE 18 MCG INH INH SCH (09:00)
[2017-04-03] MEDS: DEXTROSE 5% IN WATE 1000ML INJ 1,000 ML IV SCH (09:34)
--- NOTE | 2017-04-03 09:36 | HHI.PR ---
Subjective Remarks pt is still feeling weak and tired on 6 lit NC oxygen, breathing andrew ok no sob no wheezing + cough dry in nature no chest pain no fever or chill no abd pain no n/v ROS for 12 point system is unremarkable otherwise Objective Objective Results - Vital Signs Date Time Temp Pulse Resp B/P Pulse Ox O2 Delivery O2 Flow Rate FiO2 04/03/17 07:43 92 Nasal Cannula 6.00 04/03/17 06:00 85 04/03/17 05:00 72 04/03/17 04:00 79 04/03/17 03:00 74 04/03/17 03:00 98.9 74 20 147/59 96 04/03/17 02:00 81 04/03/17 01:00 81 04/03/17 00:00 98.9 81 20 144/72 95 04/03/17 00:00 78 04/02/17 23:00 81 04/02/17 22:00 82 04/02/17 21:00 89 04/02/17 20:30 94 Nasal Cannula 6.00 04/02/17 20:04 93 Venturi Mask 6.00 50 04/02/17 20:00 86 04/02/17 19:00 99.0 91 20 156/77 96 04/02/17 19:00 88 04/02/17 17:00 99.0 89 22 156/73 94 04/02/17 16:50 99.0 89 20 155/69 94 04/02/17 16:50 99.0 113 20 155/69 90 04/02/17 14:30 86 155/66 04/02/17 11:39 93 Venturi Mask 6.00 35 04/02/17 10:09 94 Venturi Mask 6.00 40 04/02/17 09:40 92 Nasal Cannula 6.00 I/O 04/02/17 04/02/17 04/02/17 04/03/17 04/03/17 04/03/17 07:00 15:00 23:00 07:00 15:00 23:00 Intake Total 470 ml 100 ml 1148 ml Output Total 1100 ml 350 ml 1400 ml 950 ml Balance -630 ml -350 ml -1300 ml 198 ml Intake Oral 120 ml 100 ml 360 ml IV Total 350 ml 788 ml Output Urine Total 1100 ml 350 ml 1400 ml 950 ml # Bowel Movements 0 Result Diagram: 04/03/17 0547 04/03/17 0547 Other Results Laboratory Tests Test 04/02/17 04/03/17 10:05 05:47 Blood Gas Puncture Site RT BRACHIAL Blood Gas Patient Temperature 98.6 Blood Gas HCO3 22 Blood Gas Base Excess -2.2 Blood Gas Oxygen Saturation 82 Arterial Blood pH 7.43 Arterial Blood Partial 33 Pressure CO2 Arterial Blood Partial 51 Pressure O2 Arterial Blood Oxygen Content 12.0 Arterial Blood 1.5 Carboxyhemoglobin Arterial Blood Methemoglobin 1.7 Blood Gas Hemoglobin 10.4 Oxygen Delivery Device NASAL CANNULA Blood Gas Liter Flow 6 White Blood Count 9.5 Red Blood Count 4.19 Hemoglobin 11.1 Hematocrit 34.9 Mean Corpuscular Volume 83.4 Mean Corpuscular Hemoglobin 26.4 Mean Corpuscular Hemoglobin 31.6 Concent Red Cell Distribution Width 15.7 Platelet Count 194 Mean Platelet Volume 8.5 Sodium Level 148 Potassium Level 3.6 Chloride Level 116 Carbon Dioxide Level 23.8 Anion Gap 8 Blood Urea Nitrogen 40 Creatinine 1.65 Estimat Glomerular Filtration 30 Rate Random Glucose 126 Lactic Acid Level 0.6 Calcium Level 9.6 Random Vancomycin Level 13.7 Date/Time Procedure Status Source Growth 04/01/17 10:45 Urine Culture - Final Complete Urine Random Urine NO GROWTH IN 48 HOURS. 04/01/17 10:35 Influenza Types A,B Antigen (BRANDON) - Final Complete Nasal Aspirate NEGATIVE FOR FLU A AND B ANTIGEN.... 04/01/17 10:00 Aerobic Blood Culture - Preliminary Resulted Blood Peripheral NO GROWTH IN 1 DAY 04/01/17 10:00 Anaerobic Blood Culture - Preliminary Resulted Blood Peripheral NO GROWTH IN 1 DAY Physical Exam Physical Exam General Appearance: Well Developed, No Acute Distress, Comfortable. ill and weak looking Eyes Eye Exam: Pupils Equal, Pupils Reactive Ears & Nose Ears & Nose Exam: Nasal Mucosa [place] Throat Throat Exam: Oral Mucosa [place] & Moist Neck Neck Exam: Neck Supple Pulmonary Resp Exam: Rhonchi , bibasily with coarse breathing uptill mid zone no rales no accessory muscle use Cardiology CV Exam: Regular, Normal Sinus Rhythm, Murmur Gastrointestinal/Abdomen GI Exam: Soft, Non-Tender, Bowel Sounds Present, Non-Distended Musculoskeletal MS Exam: Joints Intact Integumentary Skin Exam: Warm, Dry Extremeties Extremities Exam: Pedal Pulses Palpable Neurologic Neuro Exam: Alert, Awake, Oriented, Speech Clear, Moving All Extremities, No Focal Deficits Psychiatric Psych Exam: Appropriate Responses VTE Prophylaxis VTE Remarks Eliquis A/P Assessment and Plan (1) Sepsis (2) Atrial fibrillation with RVR (3) PNA (pneumonia) (4) UTI (urinary tract infection) (5) SHANNAN (acute kidney injury) (6) DM (diabetes mellitus) (7) Chronic diastolic CHF (congestive heart failure) (8) History of CVA (cerebrovascular accident) (9) HTN (hypertension) (10) Hyperlipidemia (11) Hypernatremia Plan sepsis, sec. PNA, UTI continue IV abx follow cultures, so far neg flu test neg lactic acid trending down cautious hydration Hypoxia, SOB, resp insufficiency continue oxygen Duonebs QID and PRN change to iv steroid Mucinex SHANNAN, improving BMP in am afib RVR cardizem drip try to switch to po cardizem cardiology consult SR on monitor change to PO cardizem and wean off drip continue Eliquis Hypernatremia change to D5W, improving DM II accuchecks AC/HS with ISS ? coughing with foods Swallow eval theresa mech soft diet with nectar thick liquid Continue with Eliquis for DVT prophylaxis PT eval Labs in am condition guarded D/W RN D/W pt. cond guarded prog guarded total time spent in managment of this pt is more than 35 min Dashawn Florence MD April 03, 2017 09:35
[2017-04-03] MEDS ORDERED: Vancomycin Consult Pharmacy 1 EA OTHER SCH (09:45)
[2017-04-03] MEDS: CEFEPIME INJ 2,000 MG in SODIUM CHLORIDE 0.9% INJ 100 ML IV SCH ×2 (10:00→20:47)
[2017-04-03] MEDS: DILTIAZEM HCL 60 MG TAB PO SCH ×3 (13:00→20:28)
[2017-04-03] MEDS ORDERED: VANCOMYCIN 1,000 MG/NS 250 ML IV ONE ×2 (14:00)
--- NOTE | 2017-04-03 18:04 | HHI.PR ---
Subjective Remarks 77 YOWF with Basal infilt, AF,DM,CHF Feels weak, tired No fever Denies CP or palpitations Decreased appetite, has dinner tray in front of her, does't feel like eating Objective Vital Signs Vital Signs Date Time Temp Pulse Resp B/P Pulse Ox O2 Delivery O2 Flow Rate FiO2 04/03/17 16:00 98.4 92 20 149/73 92 04/03/17 15:00 87 04/03/17 14:00 86 04/03/17 13:00 86 04/03/17 12:00 98.2 88 20 157/59 93 04/03/17 12:00 86 04/03/17 11:00 92 04/03/17 10:24 18 04/03/17 10:00 86 04/03/17 09:00 88 04/03/17 08:00 78 04/03/17 08:00 98.2 83 20 168/74 92 04/03/17 07:43 92 Nasal Cannula 6.00 04/03/17 07:00 85 04/03/17 06:00 85 04/03/17 05:00 72 04/03/17 04:00 79 04/03/17 03:00 74 04/03/17 03:00 98.9 74 20 147/59 96 04/03/17 02:00 81 04/03/17 01:00 81 04/03/17 00:00 98.9 81 20 144/72 95 04/03/17 00:00 78 04/02/17 23:00 81 04/02/17 22:00 82 04/02/17 21:00 89 04/02/17 20:30 94 Nasal Cannula 6.00 04/02/17 20:04 93 Venturi Mask 6.00 50 04/02/17 20:00 86 04/02/17 19:00 99.0 91 20 156/77 96 04/02/17 19:00 88 I/O 04/02/17 04/02/17 04/02/17 04/03/17 04/03/17 04/03/17 07:00 15:00 23:00 07:00 15:00 23:00 Intake Total 470 ml 100 ml 1148 ml Output Total 1100 ml 350 ml 1400 ml 950 ml Balance -630 ml -350 ml -1300 ml 198 ml Intake Oral 120 ml 100 ml 360 ml IV Total 350 ml 788 ml Output Urine Total 1100 ml 350 ml 1400 ml 950 ml # Bowel Movements 0 Result Diagram: 04/03/1747 04/03/17546 Objective Remarks GENERAL: Elderly female mild sob SKIN: Warm and dry. HEAD: Normocephalic. EYES: No scleral icterus. No injection or drainage. NECK: Supple, trachea midline. No JVD or lymphadenopathy. CARDIOVASCULAR: Regular rate and rhythm without murmurs, gallops, or rubs. RESPIRATORY: Breath sounds equal bilaterally. No accessory muscle use. Basal rales GASTROINTESTINAL: Abdomen soft, non-tender, nondistended. MUSCULOSKELETAL: No cyanosis, , ++ edema. BACK: Nontender without obvious deformity. No CVA tenderness. A/P Assessment and Plan Basl Pneumonia AF CHF DM HTN PLAN: Supplement 02 with NC to keep sat >90% Aerosol nebs Cont Abx Cefepime Diltiazem for rate controll Eliquis 2.5 mg bid covering over weekend Alvaro Wilcox MD April 03, 2017 18:04
[2017-04-03] MEDS ORDERED: ONDANSETRON HCL 4 MG/2 ML VIAL IV PUSH PRN (18:45)
[2017-04-03] MEDS: methylPREDNISolone SOD SUCC 40 MG/1 ML VIAL IV PUSH SCH (20:28)
[2017-04-03] MEDS: MIRTAZAPINE 15 MG TAB PO SCH (20:28)
[2017-04-03] MEDS: ATORVASTATIN 10 MG TAB PO SCH (20:29)
[2017-04-03] MEDS: traMADol HCL 50 MG TAB PO PRN (20:46)
[2017-04-03] MEDS: LORazepam 2 MG/ML VIAL IV PUSH PRN (22:21)
[2017-04-04] VITALS (25 sets, daily range): BP systolic 124–154; BP diastolic 62–76; PULSE 18–82; RESP 18–20; TEMP 97.3–98.6; O2SAT 91–93
[2017-04-04 05:04] LABS: HEMATOCRIT 31.9 % (35.0-46.0); MEAN CELL VOLUME 82.9 FL (80.0-100.0); MEAN CORPUSCULAR HEMOGLOBIN 27.2 PG (27.0-34.0); MEAN CORPUSCULAR HGB CONC 32.9 % (32.0-36.0); PLATELET COUNT 170 TH/MM3 (150-450); RED BLOOD COUNT 3.85 MIL/MM3 (4.00-5.30); RED CELL DISTRIBUTION WIDTH 15.3 % (11.6-17.2); REVIEW FLAG FINAL; WHITE BLOOD COUNT 7.6 TH/MM3 (4.0-11.0)
[2017-04-04] MEDS: LORazepam 2 MG/ML VIAL IV PUSH PRN (05:06)
[2017-04-04 05:21] LABS: BICARBONATE 25.2 MEQ/L (21.0-32.0); MAGNESIUM 2.4 MG/DL (1.5-2.5); POTASSIUM 4.2 MEQ/L (3.5-5.1)
[2017-04-04 05:33] LABS: FREE T4 0.97 NG/DL (0.76-1.46)
[2017-04-04] MEDS: ISOSORBIDE MONONITRATE 30 MG TAB PO SCH (05:35)
[2017-04-04] MEDS: INSULIN ASPART SUPPLEMENTAL SCALE SQ SCH ×4 (05:38→20:40)
--- NOTE | 2017-04-04 06:30 | MB ---
cc: RYAN MCPHERSON M.D., MARIA I. M.D. DATE OF CONSULTATION: 04/03/2017 REASON FOR CONSULTATION: Cardiac consultation covering for Dr. Golden HISTORY OF PRESENT ILLNESS: Ms. Granda is a pleasant 77-year-old lady who apparently was in her usual state of health up to a few days ago when she has had some dysuria according to the notes and mild retention with fever and chills the night before admission. She had nausea or vomiting after supper the night before and she was progressively weak and she was brought by her son from [facility] where she has been residing since September 2016 to the hospital for further management. She was found to be in atrial fibrillation with rapid ventricular response and febrile and she has been treated for possible UTI / pneumonia and possible sepsis. A consult for cardiology was called because of her atrial fibrillation with rapid ventricular response. Currently it has been controlled on IV Cardizem and she is also on p.o. Cardizem. She knows where she is, but she is somewhat lethargic and complains of generalized pain but denied chest pain. She is not very responsive to all the questions and it is difficult to get more information from her. Currently her heart rate is controlled on IV Cardizem at 5 mg per hour. PAST MEDICAL AND SURGICAL HISTORY Shows as mentioned. History of paroxysmal atrial fibrillation. History of cerebrovascular accidents twice in the past, the last one was a TIA in 2015. History of possible diastolic heart failure in the past. Non-insulin requiring diabetes. History of gastrointestinal efflux disease. Degenerative joint disease Osteopenia. She is status post dental implants. A history of appendectomy Eye surgery in the past. History of hysterectomy. Bilateral knee replacements. ALLERGIES CONTRAST MEDIA. EGGS IODINE BETA-PETROS IS LISTED BUT I AM NOT SURE WHAT THE ALLERGY IS. MEDICATIONS Medications at home includes 1. Prednisone 5 mg p.o. daily. 2. Losartan 100 mEq daily. 3. Eliquis 2.5 mEq b.i.d. 4. Lyrica 100 mg b.i.d. 5. Mirtazapine 15 mg q.h.s. 6. Spiriva inhaler. 7. Albuterol inhalers. 8. Dulcolax suppository p.r.n. for constipation. 9. Fluticasone nasal spray. 10. Nifedipine 90 mg. p.o. daily. 11. Hydralazine 50 n.p.o. t.i.d. 12. Atorvastatin 10 mg p.o. q.h.s. 13. Torsemide 10 mg p.o. daily. 14. Insulin supplements. 15. Imdur 30 mg daily. 16. Tramadol 50 mg p.o. q. 6 hours p.r.n. with pain 17. Omeprazole 20 mg p.o. daily. 18. Potassium chloride 10 mEq p.o. twice a day. 19. Loratadine 10 p.o. daily. SOCIAL HISTORY She lives at [facility] since September 2016. She use to live with her son prior to that. Occasional wine drinking however, denies smoking or recreational drug use. REVIEW OF SYSTEMS 12-point system review was unremarkable except what is mentioned in history of present illness including the nausea and vomiting and fever and dysuria. Tachycardia regular rhythm. Generalized weakness. PHYSICAL EXAMINATION IN GENERAL: A 77-year-old lady lying in bed in mild distress from her generalized pains. Alert and still oriented to place but not to that date. She appears tired and not does not necessarily wants to continue to answer questions. VITAL SIGNS: Blood pressure 150/70 mmHg, Symmetric pulse of 92 beats per minute, irregular respiration at 20 per minute, afebrile. HEAD, EYES, EARS, NOSE, AND THROAT: Shows head is normocephalic. Pupils are equal, reactive. Throat is within normal limits. NECK: The neck is supple. No carotid bruit. No thyromegaly or jugular venous distension noted. LUNGS: On exam diminished air entry bilaterally and few crepitations at the lower thirds bilaterally. CARDIOVASCULAR SYSTEM: S1-S2 are audible with 2-3/6 pansystolic murmur across the precordium. A faint S4 gallop. ABDOMEN: Exam is lax, nontender. Normoactive bowel sounds. No organomegaly or masses felt. Obese. EXTREMITIES: No clubbing, cyanosis or edema. Pulses 2+ bilaterally and no bruit noted. Distal dorsalis pedis is barely felt bilaterally. NEUROLOGIC: Neurologically, difficult to assess in her current condition. RECTUM: Rectal examination was deferred. LABORATORY FINDINGS: Shows Coags to be within normal limits. Sodium 148, potassium 3.6, BUN of 40, creatinine 1.65, calcium of 9.6. She had magnesium of 1.7 and this will be supplemented and his LFTs are within normal limits. Troponin I is 0.03. BNP is mildly elevated 139 on the 17th. Lactic acid was elevated at 3.2 on repeat 3.7 and repeat is now 0.6. Her white count yesterday was 10.1 and hemoglobin 10.9 repeat is 11.1 today and a platelet count of 194 today. CHEST X-RAY Mild left lower lobe consolidation and abdominal pelvic CT was done because of the generalized pains and it showed diverticulosis with no diverticulitis and no acute process bilateral lower lobe atelectasis versus pneumonia and atrophy of the pancreas. ASSESSMENT/RECOMMENDATIONS 1. Atrial fibrillation with rapid ventricular response, now controlled with IV Cardizem. She is also was placed on p.o. and that will continue for now or try to wean off IV Cardizem. I think the atrial fibrillation is likely a reaction of her infectious status and possibly pneumonia. We will continue low-dose Eliquis for now. Although, based on her age she still can hold 5 mg b.i.d. until she gets to the stage of 78 however, she has been on it and tolerating it well as an outpatient and because of the borderline age. We will keep the lower dose. 2. We will continue with rate control at the present time until her underlying problems including infection, resolved. 3. Respiratory distress with possible pneumonia. Her BNP was mildly elevated 139 but this will be repeated. An echocardiogram will be ordered because of her systolic murmur suggestive of some degree of mitral regurgitation. Her home torsemide will be continued and we will carefully watch of her electrolytes and her kidney function. Depending on her clinical response further adjustments of such therapy will be changed. 4. Hypertension, continue home therapy. We will avoid VIKY inhibitor because of her underlying repeated kidney function for now. 5. Chronic obstructive pulmonary disease 11:52____. 6. Add complete set of electrolytes as well as TSH and free T4 levels will also be checked. 7. Further other medical problems per the admitting medical team and the appropriate consultants. 8. The above was discussed with her son on the phone and her granddaughter at the bedside. It was also discussed with her daughter. Thank you for the consultation. MD Nicanor Francis /9:18 PM /6:00 AM
[2017-04-04] MEDS: APIXABAN 2.5 MG TABLET PO SCH ×2 (08:24→20:40)
[2017-04-04] MEDS: DILTIAZEM HCL 60 MG TAB PO SCH ×4 (08:24→20:40)
[2017-04-04] MEDS: guaiFENesin E.R. 600 MG TAB PO SCH ×2 (08:24→20:40)
[2017-04-04] MEDS: LORATADINE 10 MG TAB PO SCH (08:24)
[2017-04-04] MEDS: PREGABALIN 100 MG CAP PO SCH ×2 (08:24→20:40)
[2017-04-04] MEDS: POLYETHYLENE GLYCOL 17 GM PKG PO SCH (08:24)
[2017-04-04] MEDS: POTASSIUM CHLORIDE 10 MEQ CAP PO SCH ×2 (08:25→20:41)
[2017-04-04] MEDS: hydrALAZINE HCL 50 MG TAB PO SCH ×3 (08:25→17:20)
[2017-04-04] MEDS: PANTOPRAZOLE SOD 20 MG DELAYED RELEASE TAB PO SCH (08:25)
[2017-04-04] MEDS: LOSARTAN 50 MG TAB PO SCH (08:25)
[2017-04-04] MEDS: methylPREDNISolone SOD SUCC 40 MG/1 ML VIAL IV PUSH SCH ×2 (08:25→20:41)
[2017-04-04] MEDS: SODIUM CHLORIDE 0.9% FLUSH 10 ML FLUSH IV FLUSH SCH ×2 (08:25→20:41)
[2017-04-04] MEDS: TIOTROPIUM BROMIDE 18 MCG INH INH SCH (08:26)
[2017-04-04] MEDS: FLUTICASONE PROPIONATE 50 MCG/ACT 16 GM NASAL SPRAY EACH NARE SCH ×2 (08:26→20:41)
[2017-04-04] MEDS: DEXTROSE 5% IN WATE 1000ML INJ 1,000 ML IV SCH (08:28)
[2017-04-04] MEDS: TORSEMIDE 5 MG TAB PO SCH (08:28)
[2017-04-04] MEDS: RESP: ALBUTEROL 2.5 MG/IPRATROPIUM 0.5 MG NEB (SCH) NEB ×4 (09:02→19:50)
--- NOTE | 2017-04-04 10:02 | HHI.PR ---
Subjective Remarks pt is still feeling weak and tired on 4-5 lit NC oxygen, breathing andrew ok no sob no wheezing + cough dry in nature no chest pain no fever or chill no abd pain no n/v has some sleep last night ROS for 12 point system is unremarkable otherwise Objective Objective Results - Vital Signs Date Time Temp Pulse Resp B/P Pulse Ox O2 Delivery O2 Flow Rate FiO2 04/04/17 09:56 77 04/04/17 09:24 18 04/04/17 09:05 92 5.00 91 04/04/17 08:30 56 04/04/17 08:30 93 Nasal Cannula 5.00 04/04/17 08:30 97.3 60 18 140/76 93 04/04/17 06:24 91 Venturi Mask 50 04/04/17 06:00 62 04/04/17 05:00 67 04/04/17 04:00 98.2 62 18 139/66 92 04/04/17 04:00 62 04/04/17 04:00 Nasal Cannula 5.00 Humidified 04/04/17 03:00 67 04/04/17 02:00 65 04/04/17 01:00 71 04/04/17 00:00 98.6 73 18 124/62 92 04/04/17 00:00 82 04/04/17 00:00 Nasal Cannula 6.00 Humidified 04/03/17 23:00 79 04/03/17 22:00 87 04/03/17 21:00 85 04/03/17 20:04 93 Nasal Cannula 5.00 04/03/17 20:00 98.1 82 18 152/74 92 04/03/17 20:00 82 04/03/17 20:00 Nasal Cannula 6.00 Humidified 04/03/17 16:00 98.4 92 20 149/73 92 04/03/17 15:00 87 04/03/17 14:00 86 04/03/17 13:00 86 04/03/17 12:00 98.2 88 20 157/59 93 04/03/17 12:00 86 04/03/17 11:00 92 I/O 04/03/17 04/03/17 04/03/17 04/04/17 04/04/17 04/04/17 07:00 15:00 23:00 07:00 15:00 23:00 Intake Total 1148 ml 720 ml 960 ml Output Total 950 ml 180 ml 650 ml Balance 198 ml 540 ml 310 ml Intake Oral 360 ml 120 ml 360 ml IV Total 788 ml 600 ml 600 ml Output Urine Total 950 ml 180 ml 650 ml # Bowel Movements 0 0 Result Diagram: 04/04/172 04/04/172 Other Results Laboratory Tests Test 04/04/17 04:02 White Blood Count 7.6 Red Blood Count 3.85 Hemoglobin 10.5 Hematocrit 31.9 Mean Corpuscular Volume 82.9 Mean Corpuscular Hemoglobin 27.2 Mean Corpuscular Hemoglobin 32.9 Concent Red Cell Distribution Width 15.3 Platelet Count 170 Mean Platelet Volume 9.7 Sodium Level 144 Potassium Level 4.2 Chloride Level 111 Carbon Dioxide Level 25.2 Anion Gap 8 Blood Urea Nitrogen 41 Creatinine 1.77 Estimat Glomerular Filtration 28 Rate Random Glucose 249 Calcium Level 9.6 Phosphorus Level 3.7 Magnesium Level 2.4 Free Thyroxine 0.97 Thyroid Stimulating Hormone 0.322 3rd Gen Random Vancomycin Level 18.1 Date/Time Procedure Status Source Growth 04/01/17 10:45 Urine Culture - Final Complete Urine Random Urine NO GROWTH IN 48 HOURS. 04/01/17 10:35 Influenza Types A,B Antigen (BRANDON) - Final Complete Nasal Aspirate NEGATIVE FOR FLU A AND B ANTIGEN.... 04/01/17 10:00 Aerobic Blood Culture - Preliminary Resulted Blood Peripheral NO GROWTH IN 2 DAYS 04/01/17 10:00 Anaerobic Blood Culture - Preliminary Resulted Blood Peripheral NO GROWTH IN 2 DAYS Physical Exam Physical Exam General Appearance: Well Developed, No Acute Distress, Comfortable. ill and weak looking Eyes Eye Exam: Pupils Equal, Pupils Reactive Ears & Nose Ears & Nose Exam: Nasal Mucosa [place] Throat Throat Exam: Oral Mucosa [place] & Moist Neck Neck Exam: Neck Supple Pulmonary Resp Exam: Rhonchi , bibasily with coarse breathing uptill mid zone no rales no accessory muscle use Cardiology CV Exam: Regular, Normal Sinus Rhythm, Murmur Gastrointestinal/Abdomen GI Exam: Soft, Non-Tender, Bowel Sounds Present, Non-Distended Musculoskeletal MS Exam: Joints Intact Integumentary Skin Exam: Warm, Dry Extremeties Extremities Exam: Pedal Pulses Palpable Neurologic Neuro Exam: Alert, Awake, Oriented, Speech Clear, Moving All Extremities, No Focal Deficits Psychiatric Psych Exam: Appropriate Responses VTE Prophylaxis VTE Remarks Eliquis A/P Assessment and Plan (1) Sepsis (2) Atrial fibrillation with RVR (3) PNA (pneumonia) (4) UTI (urinary tract infection) (5) SHANNAN (acute kidney injury) (6) DM (diabetes mellitus) (7) Chronic diastolic CHF (congestive heart failure) (8) History of CVA (cerebrovascular accident) (9) HTN (hypertension) (10) Hyperlipidemia (11) Hypernatremia Plan sepsis, sec. PNA, UTI continue IV abx follow cultures, so far neg flu test neg lactic acid trending down Hypoxia, SOB, resp insufficiency continue oxygen Duonebs QID and PRN iv steroid Mucinex SHANNAN, improving BMP in am afib RVR, controlled rate cardizem drip try to switch to po cardizem cardiology consult theresa SR on monitor change to PO cardizem and wean off drip continue Eliquis Hypernatremia better dc D5W DM II accuchecks AC/HS with ISS ? coughing with foods Swallow eval theresa mech soft diet with nectar thick liquid Continue with Eliquis for DVT prophylaxis PT eval Labs in am condition guarded D/W RN D/W pt. cond guarded prog guarded Dashawn Florence MD April 04, 2017 10:02
[2017-04-04] MEDS: CEFEPIME INJ 2,000 MG in SODIUM CHLORIDE 0.9% INJ 100 ML IV SCH ×2 (10:21→21:15)
[2017-04-04] MEDS ORDERED: VANCOMYCIN 1,000 MG/NS 250 ML IV ONE ×2 (15:00)
--- NOTE | 2017-04-04 15:20 | EC ---
Study Study Date:04/04/2017 STUDY CONCLUSIONS SUMMARY - Left ventricle: The cavity size was normal. Wall thickness was increased in a pattern of mild LVH. Systolic function was normal. The estimated ejection fraction was in the range of 60% to 65%. Wall motion was normal; there were no regional wall motion abnormalities. - Aortic valve: Transvalvular velocity was increased. There was mild stenosis. Mild regurgitation. Valve area: 1.27cm^2(VTI). Valve area: 1.36cm^2 (Vmax). - Mitral valve: Mildly calcified annulus. Moderate regurgitation. Valve area by continuity equation (using LVOT flow): 1.55cm^2. - Tricuspid valve: Mild regurgitation. - Pulmonary arteries: Systolic pressure was moderately increased. If LV function is below 40, please consider prescribing an ACEI or ARB or document rationale for non-use. PROCEDURE DATA STUDY STATUS: Elective. Procedure: Transthoracic echocardiography. Image quality was good. Scanning was performed from the parasternal, apical, and subcostal acoustic windows. Study completion: The patient tolerated the procedure well. Transthoracic echocardiography. M-mode, complete 2D, complete spectral Doppler, and color Doppler. Height: Height: 63in. Weight: Weight: 144.7lb. Body mass index: BMI: 25.7kg/m^2. Body surface area: BSA: 1.69m^2. Patient status: Inpatient. CARDIAC ANATOMY LEFT VENTRICLE: The cavity size was normal. Wall thickness was increased in a pattern of mild LVH. Systolic function was normal. The estimated ejection fraction was in the range of 60% to 65%. Wall motion was normal; there were no regional wall motion abnormalities. AORTIC VALVE: Trileaflet; normal thickness, mildly calcified leaflets. Doppler: Transvalvular velocity was increased. There was mild stenosis. Mild regurgitation. Valve area: 1.27cm^2(VTI). Indexed valve area: 0.75cm^2/m^2 (VTI). Valve area: 1.36cm^2 (Vmax). Indexed valve area: 0.8cm^2/m^2 (Vmax). Mean gradient: 13mm Hg (S). Peak gradient: 29mm Hg (S). AORTA: Aortic root: The aortic root was normal in size. MITRAL VALVE: Mildly calcified annulus. Doppler: Transvalvular velocity was within the normal range. There was no evidence for stenosis. Moderate regurgitation. Valve area by pressure half-time: 2.93cm^2. Indexed valve area by pressure half-time: 1.73cm^2/m^2. Valve area by continuity equation (using LVOT flow): 1.55cm^2. Indexed valve area by continuity equation (using LVOT flow): 0.92cm^2/m^2. Mean gradient: 4mm Hg (D). Peak gradient: 20mm Hg (D). LEFT ATRIUM: The atrium was normal in size. RIGHT VENTRICLE: The cavity size was normal. Wall thickness was normal. PULMONIC VALVE: Doppler: Transvalvular velocity was within the normal range. There was no evidence for stenosis. No regurgitation. TRICUSPID VALVE: Structurally normal valve. Doppler: Transvalvular velocity was within the normal range. Mild regurgitation. Peak gradient: 50mm Hg (D). PULMONARY ARTERY: The main pulmonary artery was normal-sized. Systolic pressure was moderately increased. RIGHT ATRIUM: The atrium was normal in size. PERICARDIUM: There was no pericardial effusion. SYSTEMIC VEINS: Inferior vena cava: The vessel was normal in size. Patient weight: 144.7lb _Ejection fraction:_ 65-75% _Fractional shortening:_ 32% up to 5Kg 5-11.5Kg 11.6-22.9Kg 23-45Kg 45-57Kg Aortic Root 7-13 <17 13-22 17-27 17-27 LA diam 6-13 <23 24-38 33-47 37-40 RVID 10-17 7-15 7-15 7-18 8-17 LVIDd 12-22 <32 24-38 33-47 37-40 LVPW 2-4 3-6 5-7 6-8 7-8 IVS 2-4 3-6 5-7 6-8 7-8 BASIC MEASUREMENTS ADULT NORMAL Left ventricle LV internal dimension, ED, chordal *36.9 mm 43-52 level, PLAX LV internal dimension, ES, chordal 23.7 mm 23-38 level, PLAX Fractional shortening, chordal level, 36 % >29 PLAX LV posterior wall thickness, ED 14.2 mm IVS/LVPW ratio, ED 0.99 <1.3 Ventricular septum Septal thickness, ED 14 mm Aortic valve Leaflet separation *12 mm 15-26 Left atrium Anterior-posterior dimension 39 mm Anterior-posterior dimension index *2.31 cm/m^2 <2.2 Right ventricle RV internal dimension, ED, PLAX 28.6 mm 19-38 BASIC MEASUREMENTS ADULT NORMAL Aortic valve Leaflet separation *12 mm 15-26 Aorta Root diameter, ED 25 mm 20-37 DOPPLER MEASUREMENTS ADULT NORMAL Aortic valve Peak velocity, S 267 cm/s Mean velocity, S 169 cm/s VTI, S 50.4 cm Mean gradient, S 13 mm Hg Peak gradient, S 29 mm Hg Valve area, VTI 1.27 cm^2 Valve area index, VTI 0.75 cm^2/m^2 Valve area, Vmax 1.36 cm^2 Valve area index, Vmax 0.8 cm^2/m^2 Mitral valve Peak E-wave velocity 196 cm/s Peak A-wave velocity 78.8 cm/s Mean velocity, D 90.3 cm/s Pressure half-time 75 ms Mean gradient, D 4 mm Hg Peak gradient, D 20 mm Hg Peak E/A ratio 2.5 Valve area, pressure half-time 2.93 cm^2 Valve area index, pressure half-time 1.73 cm^2/m^2 Valve area, LVOT continuity 1.55 cm^2 Valve area index, LVOT continuity 0.92 cm^2/m^2 Tricuspid valve Peak gradient, D 50 mm Hg Maximal inflow velocity 331 cm/s Systemic veins Estimated CVP 10 mm Hg Pulmonic valve Peak velocity, S 115 cm/s LEGEND: Mean values are shown as u=mean value. Asterisk (*) garcia values outside specified normal range. Prepared and signed by Leann Henao [id number]
--- NOTE | 2017-04-04 16:25 | HHI.PR ---
Subjective Remarks LESS SOB NO DISTRESS Objective Vital Signs Date Time Temp Pulse Resp B/P Pulse Ox O2 Delivery O2 Flow Rate FiO2 04/04/17 16:05 69 04/04/17 15:02 92 Nasal Cannula 4.00 04/04/17 15:02 68 04/04/17 15:02 98.0 72 20 145/70 92 04/04/17 14:13 71 04/04/17 13:13 75 04/04/17 12:01 69 04/04/17 11:07 92 Nasal Cannula 5.00 04/04/17 11:07 97.6 73 18 154/68 92 04/04/17 11:07 73 04/04/17 10:05 70 04/04/17 09:56 77 04/04/17 09:24 18 04/04/17 09:05 92 5.00 91 04/04/17 08:30 56 04/04/17 08:30 93 Nasal Cannula 5.00 04/04/17 08:30 97.3 60 18 140/76 93 04/04/17 06:24 91 Venturi Mask 50 04/04/17 06:00 62 04/04/17 05:00 67 04/04/17 04:00 98.2 62 18 139/66 92 04/04/17 04:00 62 04/04/17 04:00 Nasal Cannula 5.00 Humidified 04/04/17 03:00 67 04/04/17 02:00 65 04/04/17 01:00 71 04/04/17 00:00 98.6 73 18 124/62 92 04/04/17 00:00 82 04/04/17 00:00 Nasal Cannula 6.00 Humidified 04/03/17 23:00 79 04/03/17 22:00 87 04/03/17 21:00 85 04/03/17 20:04 93 Nasal Cannula 5.00 04/03/17 20:00 98.1 82 18 152/74 92 04/03/17 20:00 82 04/03/17 20:00 Nasal Cannula 6.00 Humidified I/O 04/03/17 04/03/17 04/03/17 04/04/17 04/04/17 04/04/17 06:59 14:59 22:59 06:59 14:59 22:59 Intake Total 1148 ml 720 ml 960 ml Output Total 950 ml 180 ml 650 ml Balance 198 ml 540 ml 310 ml Intake Oral 360 ml 120 ml 360 ml IV Total 788 ml 600 ml 600 ml Output Urine Total 950 ml 180 ml 650 ml # Bowel Movements 0 0 Result Diagram: 04/04/1740104/04/17401 Objective Remarks GENERAL: SKIN: Warm and dry. HEAD: Atraumatic. Normocephalic. EYES: Pupils equal and round. No scleral icterus. No injection or drainage. ENT: No nasal bleeding or discharge. Mucous membranes pink and moist. NECK: Trachea midline. No JVD. CARDIOVASCULAR: Regular rate and rhythm. RESPIRATORY: No accessory muscle use. Clear to auscultation. Breath sounds equal bilaterally. GASTROINTESTINAL: Abdomen soft, non-tender, nondistended. Hepatic and splenic margins not palpable. MUSCULOSKELETAL: Extremities without clubbing, cyanosis, or edema. No obvious deformities. NEUROLOGICAL: Awake and alert. No obvious cranial nerve deficits. Motor grossly within normal limits. Five out of 5 muscle strength in the arms and legs. Normal speech. PSYCHIATRIC: Appropriate mood and affect; insight and judgment normal. Assessment and Plan Assessment and Plan ASS: REPIRATORY FAILURE CHF AFIB DM HTN PLAN: O2 NEEDED CARDIOLOGY FOLLOWING Lizet Hinds MD April 04, 2017 16:25
--- NOTE | 2017-04-04 16:45 | EKG ---
Date Performed: 04/04/2017 Time Performed: 06:33:20 PTAGE: 77 years EKG: Sinus rhythm Lateral ST-T changes are nonspecific Compared to previous tracing, the patient is no longer in atria l flutter with rapid ventricular rate Borderline ECG PREVIOUS TRACING : 04/01/2017 11.24 DOCTOR: Leann Henao Interpretating Date/Time 04/04/2017 16:44:25
--- NOTE | 2017-04-04 19:13 | RADRPT ---
EXAM DATE/TIME: 04/04/2017 18:41 [facility] COMPARISON: CT BRAIN W/O CONTRAST, June 10, 2016, 21:00. INDICATIONS : Confusion. MEDICAL HISTORY : Diabetes mellitus type 2. Cerebrovascular disease. Hypertension. Cardiovascular disease SURGICAL HISTORY : Fusion, cervical. Hysterectomy. Total knee replacement, right. ENCOUNTER: Initial ACUITY: 1 day PAIN SCORE: 0/10 LOCATION: cranial TECHNIQUE: Multiplanar, multisequence MRI of the brain was performed without contrast. FINDINGS: CEREBRUM: The ventricles and cortical sulci are widened. There is a small focus of susceptibility artifact seen in the posterior left lateral ventricle. There is an area of prior infarction involving the right pe riventricular region and extending inferiorly into the posterior horn of the internal capsule and the posterior aspect of the right basal ganglia. No evidence of midline shift, mass lesion, or acute in farction. No extraaxial fluid collections are seen. The pituitary gland and suprasellar cistern are normal in configuration. WHITE MATTER: There is increased signal seen throughout the paraventricular white matter. POSTERIOR FOSSA: The cerebellum and brainstem are intact. The 4th ventricle is midline. The cerebellopontine angle is unremarkable. The cerebellar tonsils are normal in position. DIFFUSION IMAGING: No focal areas of restricted diffusion are seen. No evidence of acute infarction. EXTRACRANIAL: The visualized portions of the orbits are unremarkable. There is right maxillary, right frontal and s cattered right ethmoid sinus disease. CONCLUSION: 1. Focal area of susceptibility artifact in the posterior left lateral ventricle. A small focus of in terventricular hemorrhage cannot be excluded. A CT examination would be recommended. 2. Age-related atrophy. 3. Old infarct on the right side as described above. 4. Suspected small vessel ischemic change throughout the white matter. 5. Right-sided sinus disease. Ayden Altman MD on April 04, 2017 at 19:06 Board Certified Radiologist. This report was verified electronically.
[2017-04-04] MEDS: ATORVASTATIN 10 MG TAB PO SCH (20:41)
[2017-04-04] MEDS: MIRTAZAPINE 15 MG TAB PO SCH (20:55)
[2017-04-04] MEDS ORDERED: ATROPINE SULFATE 1 MG/10 ML SYRINGE ONE (21:57)
[2017-04-04] MEDS ORDERED: EPINEPHrine HCL (1:10,000) 1 MG/10 ML SYRINGE ONE (21:57)
--- NOTE | 2017-04-04 23:06 | RADRPT ---
EXAM DATE/TIME: 04/04/2017 22:18 [facility] COMPARISON: MRI BRAIN W/O CONTRAST, April 04, 2017, 18:41. CT BRAIN W/O CONTRAST, June 10, 2016, 21:00. INDICATIONS : Abnormal MRI; lethargy. RADIATION DOSE: 56.35 CTDIvol (mGy) MEDICAL HISTORY : Hypertension. Congestive heart failure. diabetes, transient ischemic attack SURGICAL HISTORY : Hysterectomy. Fusion, cervical. ENCOUNTER: Subsequent ACUITY: 1 day PAIN SCALE: 0/10 LOCATION: Bilateral head TECHNIQUE: Multiple contiguous axial images were obtained of the head. Using automated exposure control and adj ustment of the mA and/or kV according to patient size, radiation dose was kept as low as reasonably a chievable to obtain optimal diagnostic quality images. FINDINGS: CEREBRUM: The ventricles and cortical sulci are mildly widened. This area of prior infarction involving the rig ht periventricular white matter, caudate and extending to the right basal ganglia. No evidence of mi dline shift, mass lesion, hemorrhage or acute infarction. No extra-axial fluid collections are seen. POSTERIOR FOSSA: The cerebellum and brainstem are intact. The 4th ventricle is midline. The cerebellopontine angle i s unremarkable. EXTRACRANIAL: The visualized portion of the orbits is intact. There is bilateral maxillary sinus disease being wors e on the right and right frontal sinus disease. SKULL: The calvaria is intact. No evidence of skull fracture. CONCLUSION: 1. Old infarct on the right side. 2. Mild atrophy. 3. There is no evidence of interventricular hemorrhage. 4. Sinus disease. Ayden Altman MD on April 04, 2017 at 23:00 Board Certified Radiologist. This report was verified electronically.
[2017-04-05] VITALS (27 sets, daily range): BP systolic 117–178; BP diastolic 67–83; PULSE 45–76; RESP 14–20; TEMP 97.6–98.6; O2SAT 94–98
[2017-04-05] MEDS: ISOSORBIDE MONONITRATE 30 MG TAB PO SCH (05:53)
[2017-04-05] MEDS: INSULIN ASPART SUPPLEMENTAL SCALE SQ SCH ×4 (05:56→22:28)
[2017-04-05 06:19] LABS: HEMATOCRIT 35.1 % (35.0-46.0); MEAN CELL VOLUME 83.8 FL (80.0-100.0); MEAN CORPUSCULAR HEMOGLOBIN 26.5 PG (27.0-34.0); MEAN CORPUSCULAR HGB CONC 31.7 % (32.0-36.0); PLATELET COUNT 196 TH/MM3 (150-450); RED BLOOD COUNT 4.18 MIL/MM3 (4.00-5.30); RED CELL DISTRIBUTION WIDTH 15.7 % (11.6-17.2); REVIEW FLAG FINAL; WHITE BLOOD COUNT 8.2 TH/MM3 (4.0-11.0)
[2017-04-05 06:57] LABS: POTASSIUM 4.6 MEQ/L (3.5-5.1)
[2017-04-05] MEDS: RESP: ALBUTEROL 2.5 MG/IPRATROPIUM 0.5 MG NEB (SCH) NEB ×4 (08:12→19:48)
[2017-04-05] MEDS: LORATADINE 10 MG TAB PO SCH (08:50)
[2017-04-05] MEDS: TORSEMIDE 5 MG TAB PO SCH (08:50)
[2017-04-05] MEDS: LOSARTAN 50 MG TAB PO SCH (08:50)
[2017-04-05] MEDS: guaiFENesin E.R. 600 MG TAB PO SCH ×2 (08:50→21:00)
[2017-04-05] MEDS: hydrALAZINE HCL 50 MG TAB PO SCH ×3 (08:50→17:05)
[2017-04-05] MEDS: DILTIAZEM HCL 60 MG TAB PO SCH ×4 (08:50→21:00)
[2017-04-05] MEDS: PANTOPRAZOLE SOD 20 MG DELAYED RELEASE TAB PO SCH (08:50)
[2017-04-05] MEDS: POTASSIUM CHLORIDE 10 MEQ CAP PO SCH ×2 (08:50→21:00)
[2017-04-05] MEDS: PREGABALIN 100 MG CAP PO SCH ×2 (08:51→21:00)
[2017-04-05] MEDS: POLYETHYLENE GLYCOL 17 GM PKG PO SCH (08:51)
[2017-04-05] MEDS: APIXABAN 2.5 MG TABLET PO SCH ×2 (08:51→21:00)
[2017-04-05] MEDS: methylPREDNISolone SOD SUCC 40 MG/1 ML VIAL IV PUSH SCH ×2 (08:52→22:21)
[2017-04-05] MEDS: SODIUM CHLORIDE 0.9% FLUSH 10 ML FLUSH IV FLUSH SCH ×2 (08:54→22:29)
[2017-04-05] MEDS: FLUTICASONE PROPIONATE 50 MCG/ACT 16 GM NASAL SPRAY EACH NARE SCH ×2 (08:55→21:00)
[2017-04-05] MEDS: TIOTROPIUM BROMIDE 18 MCG INH INH SCH (08:55)
--- NOTE | 2017-04-05 10:53 | HHI.PR ---
Subjective Remarks pt is still feeling weak and tired on 4-5 lit NC oxygen, breathing andrew ok no sob no wheezing + cough dry in nature no chest pain no abd pain no fever or chill no sizziness some headach sometime no numbness or tingling AxOx3 no n/v has some sleep last night ROS for 12 point system is unremarkable otherwise Objective Objective Results - Vital Signs Date Time Temp Pulse Resp B/P Pulse Ox O2 Delivery O2 Flow Rate FiO2 04/05/17 08:49 97.6 71 14 151/72 96 04/05/17 08:10 95 Nasal Cannula 5.00 04/05/17 06:00 76 04/05/17 05:00 70 04/05/17 04:00 95 Nasal Cannula 5.00 04/05/17 04:00 45 04/05/17 04:00 98.4 51 18 117/67 98 04/05/17 03:00 70 04/05/17 02:00 74 04/05/17 01:00 66 04/05/17 00:00 92 Nasal Cannula 5.00 04/05/17 00:00 98.4 74 20 154/69 94 04/05/17 00:00 75 04/04/17 23:00 66 04/04/17 22:00 70 04/04/17 21:40 20 04/04/17 21:00 68 04/04/17 20:00 92 Nasal Cannula 5.00 04/04/17 20:00 98.0 78 20 142/66 92 04/04/17 20:00 72 04/04/17 19:52 92 Nasal Cannula 6.00 04/04/17 18:08 69 04/04/17 17:15 74 04/04/17 16:05 69 04/04/17 15:02 92 Nasal Cannula 4.00 04/04/17 15:02 68 04/04/17 15:02 98.0 72 20 145/70 92 04/04/17 14:13 71 04/04/17 13:13 75 04/04/17 12:01 69 04/04/17 11:07 92 Nasal Cannula 5.00 04/04/17 11:07 97.6 73 18 154/68 92 04/04/17 11:07 73 I/O 04/04/17 04/04/17 04/04/17 04/05/17 04/05/17/21/17 07:00 15:00 23:00 07:00 15:00 23:00 Intake Total 960 ml 1366 ml 718 ml 0 ml Output Total 650 ml 300 ml 550 ml Balance 310 ml 1066 ml 718 ml -550 ml Intake Oral 360 ml 840 ml 0 ml IV Total 600 ml 526 ml 718 ml Output Urine Total 650 ml 300 ml 550 ml # Bowel Movements 0 0 Result Diagram: 04/05/17 0609 04/05/17 0609 Other Results Laboratory Tests Test 04/05/17 06:09 White Blood Count 8.2 Red Blood Count 4.18 Hemoglobin 11.1 Hematocrit 35.1 Mean Corpuscular Volume 83.8 Mean Corpuscular Hemoglobin 26.5 Mean Corpuscular Hemoglobin 31.7 Concent Red Cell Distribution Width 15.7 Platelet Count 196 Mean Platelet Volume 8.7 Sodium Level 147 Potassium Level 4.6 Chloride Level 114 Carbon Dioxide Level 24.0 Anion Gap 9 Blood Urea Nitrogen 51 Creatinine 1.71 Estimat Glomerular Filtration 29 Rate Random Glucose 214 Calcium Level 9.6 B-Type Natriuretic Peptide 299 Random Vancomycin Level 23.0 Date/Time Procedure Status Source Growth 04/01/17 10:45 Urine Culture - Final Complete Urine Random Urine NO GROWTH IN 48 HOURS. 04/01/17 10:35 Influenza Types A,B Antigen ([facility]) - Final Complete Nasal Aspirate NEGATIVE FOR FLU A AND B ANTIGEN.... 04/01/17 10:00 Aerobic Blood Culture - Preliminary Resulted Blood Peripheral NO GROWTH IN 3 DAYS 04/01/17 10:00 Anaerobic Blood Culture - Preliminary Resulted Blood Peripheral NO GROWTH IN 3 DAYS Physical Exam Physical Exam General Appearance: Well Developed, No Acute Distress, Comfortable. ill and weak looking Eyes Eye Exam: Pupils Equal, Pupils Reactive Ears & Nose Ears & Nose Exam: Nasal Mucosa [place] Throat Throat Exam: Oral Mucosa [place] & Moist Neck Neck Exam: Neck Supple Pulmonary Resp Exam: Rhonchi , bibasily with coarse breathing uptill mid zone no rales no accessory muscle use Cardiology CV Exam: Regular, Normal Sinus Rhythm, Murmur Gastrointestinal/Abdomen GI Exam: Soft, Non-Tender, Bowel Sounds Present, Non-Distended Musculoskeletal MS Exam: Joints Intact Integumentary Skin Exam: Warm, Dry Extremeties Extremities Exam: Pedal Pulses Palpable Neurologic Neuro Exam: Alert, Awake, Oriented, Speech Clear, Moving All Extremities, No Focal Deficits Psychiatric Psych Exam: Appropriate Responses VTE Prophylaxis VTE Remarks Eliquis A/P Assessment and Plan (1) Sepsis (2) Atrial fibrillation with RVR (3) PNA (pneumonia) (4) UTI (urinary tract infection) (5) SHANNAN (acute kidney injury) (6) DM (diabetes mellitus) (7) Chronic diastolic CHF (congestive heart failure) (8) History of CVA (cerebrovascular accident) (9) HTN (hypertension) (10) Hyperlipidemia (11) Hypernatremia Plan sepsis, sec. 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 coughing with foods Swallow eval theresa mech soft diet with nectar thick liquid Continue with Eliquis for DVT prophylaxis PT eval Labs in am condition guarded D/W RN D/W pt. PT eval cond guarded prog guarded Dashawn Florence MD April 05, 2017 10:53
[2017-04-05] MEDS: CEFEPIME INJ 2,000 MG in SODIUM CHLORIDE 0.9% INJ 100 ML IV SCH ×2 (12:16→22:20)
[2017-04-05] MEDS: PROPAFENONE HCL 150 MG TAB PO SCH ×2 (12:25→21:00)
--- NOTE | 2017-04-05 14:26 | HHI.PR ---
Subjective Remarks LESS SOB NO DISTRESS Objective Vital Signs Date Time Temp Pulse Resp B/P Pulse Ox O2 Delivery O2 Flow Rate FiO2 04/05/17 14:10 70 04/05/17 13:57 73 04/05/17 12:04 18 04/05/17 12:00 70 04/05/17 11:55 95 Nasal Cannula 4.00 04/05/17 11:55 69 04/05/17 11:55 98.1 74 18 178/81 95 04/05/17 11:31 98.2 73 17 177/83 96 04/05/17 11:01 95 Nasal Cannula 5.00 04/05/17 08:49 97.6 71 14 151/72 96 04/05/17 08:10 95 Nasal Cannula 5.00 04/05/17 06:00 76 04/05/17 05:00 70 04/05/17 04:00 95 Nasal Cannula 5.00 04/05/17 04:00 45 04/05/17 04:00 98.4 51 18 117/67 98 04/05/17 03:00 70 04/05/17 02:00 74 04/05/17 01:00 66 04/05/17 00:00 92 Nasal Cannula 5.00 04/05/17 00:00 98.4 74 20 154/69 94 04/05/17 00:00 75 04/04/17 23:00 66 04/04/17 22:00 70 04/04/17 21:00 68 04/04/17 20:00 92 Nasal Cannula 5.00 04/04/17 20:00 98.0 78 20 142/66 92 04/04/17 20:00 72 04/04/17 19:52 92 Nasal Cannula 6.00 04/04/17 18:08 69 04/04/17 17:15 74 04/04/17 16:05 69 04/04/17 15:02 92 Nasal Cannula 4.00 04/04/17 15:02 68 04/04/17 15:02 98.0 72 20 145/70 92 I/O 04/04/17 04/04/17 04/04/17 04/05/17 04/05/17 04/05/17 07:00 15:00 23:00 07:00 15:00 23:00 Intake Total 960 ml 1366 ml 718 ml 0 ml Output Total 650 ml 300 ml 550 ml Balance 310 ml 1066 ml 718 ml -550 ml Intake Oral 360 ml 840 ml 0 ml IV Total 600 ml 526 ml 718 ml Output Urine Total 650 ml 300 ml 550 ml # Bowel Movements 0 0 Result Diagram: 04/05/1760804/05/17608 Objective Remarks GENERAL: SKIN: Warm and dry. HEAD: Atraumatic. Normocephalic. EYES: Pupils equal and round. No scleral icterus. No injection or drainage. ENT: No nasal bleeding or discharge. Mucous membranes pink and moist. NECK: Trachea midline. No JVD. CARDIOVASCULAR: Regular rate and rhythm. RESPIRATORY: No accessory muscle use. Clear to auscultation. Breath sounds equal bilaterally. GASTROINTESTINAL: Abdomen soft, non-tender, nondistended. Hepatic and splenic margins not palpable. MUSCULOSKELETAL: Extremities without clubbing, cyanosis, or edema. No obvious deformities. NEUROLOGICAL: Awake and alert. No obvious cranial nerve deficits. Motor grossly within normal limits. Five out of 5 muscle strength in the arms and legs. Normal speech. PSYCHIATRIC: Appropriate mood and affect; insight and judgment normal. Assessment and Plan Assessment and Plan ASS: REPIRATORY FAILURE CHF AFIB DM HTN PLAN: O2 NEEDED CARDIOLOGY FOLLOWING Lizet Hinds MD April 05, 2017 14:26
[2017-04-05] MEDS: ATORVASTATIN 10 MG TAB PO SCH (21:00)
[2017-04-05] MEDS: MIRTAZAPINE 15 MG TAB PO SCH (21:00)
[2017-04-06] VITALS (29 sets, daily range): BP systolic 162–188; BP diastolic 73–95; PULSE 52–78; RESP 16–19; TEMP 97.1–98.4; O2SAT 94–95
[2017-04-06] MEDS: PREGABALIN 100 MG CAP PO SCH ×3 (03:49→21:45)
[2017-04-06 04:59] LABS: HEMATOCRIT 32.1 % (35.0-46.0); MEAN CELL VOLUME 82.6 FL (80.0-100.0); MEAN CORPUSCULAR HEMOGLOBIN 26.4 PG (27.0-34.0); MEAN CORPUSCULAR HGB CONC 31.9 % (32.0-36.0); PLATELET COUNT 193 TH/MM3 (150-450); RED BLOOD COUNT 3.89 MIL/MM3 (4.00-5.30); REVIEW FLAG FINAL; WHITE BLOOD COUNT 6.7 TH/MM3 (4.0-11.0)
[2017-04-06 05:21] LABS: BICARBONATE 22.4 MEQ/L (21.0-32.0); POTASSIUM 4.4 MEQ/L (3.5-5.1)
[2017-04-06] MEDS: ISOSORBIDE MONONITRATE 30 MG TAB PO SCH (06:51)
[2017-04-06] MEDS: INSULIN ASPART SUPPLEMENTAL SCALE SQ SCH ×4 (07:00→21:00)
[2017-04-06] MEDS: RESP: ALBUTEROL 2.5 MG/IPRATROPIUM 0.5 MG NEB (SCH) NEB ×2 (07:30→11:28)
[2017-04-06] MEDS: FLUTICASONE PROPIONATE 50 MCG/ACT 16 GM NASAL SPRAY EACH NARE SCH ×2 (09:00→21:00)
[2017-04-06] MEDS: TIOTROPIUM BROMIDE 18 MCG INH INH SCH (09:00)
[2017-04-06] MEDS: LOSARTAN 50 MG TAB PO SCH (09:07)
[2017-04-06] MEDS: guaiFENesin E.R. 600 MG TAB PO SCH ×2 (09:07→21:45)
[2017-04-06] MEDS: SODIUM CHLORIDE 0.9% FLUSH 10 ML FLUSH IV FLUSH SCH ×2 (09:08→21:46)
[2017-04-06] MEDS: POLYETHYLENE GLYCOL 17 GM PKG PO SCH (09:08)
[2017-04-06] MEDS: TORSEMIDE 5 MG TAB PO SCH (09:08)
[2017-04-06] MEDS: PANTOPRAZOLE SOD 20 MG DELAYED RELEASE TAB PO SCH (09:08)
[2017-04-06] MEDS: APIXABAN 2.5 MG TABLET PO SCH ×2 (09:08→21:44)
[2017-04-06] MEDS: PROPAFENONE HCL 150 MG TAB PO SCH ×2 (09:08→21:45)
[2017-04-06] MEDS: methylPREDNISolone SOD SUCC 40 MG/1 ML VIAL IV PUSH SCH ×2 (09:08→21:46)
[2017-04-06] MEDS: POTASSIUM CHLORIDE 10 MEQ CAP PO SCH ×2 (09:08→21:46)
[2017-04-06] MEDS: LORATADINE 10 MG TAB PO SCH (09:08)
[2017-04-06] MEDS: DILTIAZEM HCL 60 MG TAB PO SCH ×4 (09:08→21:45)
[2017-04-06] MEDS: hydrALAZINE HCL 50 MG TAB PO SCH ×3 (09:08→17:08)
[2017-04-06] MEDS: CEFEPIME INJ 2,000 MG in SODIUM CHLORIDE 0.9% INJ 100 ML IV SCH (09:14)
[2017-04-06] MEDS ORDERED: VANCOMYCIN 1,000 MG/NS 250 ML IV ONE ×2 (11:00)
--- NOTE | 2017-04-06 11:03 | HHI.PR ---
Subjective Interval History pt is still feeling weak and tired appears sleepy, but arousable answering questions appropriately appears lethargic on 3 lit NC oxygen, breathing andrew ok no sob no wheezing no chest pain no abd pain no fever or chill no dizziness AxOx3 no n/v ROS for 12 point system is unremarkable otherwise Vitals/Results Intake & Output 04/05/17 04/05/17 04/06/17 15:00 23:00 07:00 Intake Total 0 ml 1070 ml 480 ml Output Total 550 ml 1000 ml 725 ml Balance -550 ml 70 ml -245 ml Intake Oral 0 ml 720 ml 480 ml IV Total 350 ml Output Urine Total 550 ml 1000 ml 725 ml Stool Total 0 ml # Bowel Movements 0 Vital Signs Vital Signs Date Time Temp Pulse Resp B/P Pulse Ox O2 Delivery O2 Flow Rate FiO2 04/06/17 09:55 16 04/06/17 08:00 64 04/06/17 08:00 Nasal Cannula 3.00 04/06/17 08:00 98.0 61 16 186/92 95 04/06/17 07:30 94 Nasal Cannula 3.00 04/06/17 06:00 56 04/06/17 05:00 57 04/06/17 04:23 98.2 57 18 163/73 95 04/06/17 04:00 63 04/06/17 03:18 93 Nasal Cannula 3.00 04/06/17 03:00 52 04/06/17 02:00 54 04/06/17 01:00 54 04/06/17 00:02 98.2 62 18 162/81 94 04/06/17 00:02 94 Nasal Cannula 3.00 04/06/17 00:00 56 04/05/17 23:00 65 04/05/17 22:05 162/80 04/05/17 22:01 98.1 68 18 172/76 95 04/05/17 22:00 62 04/05/17 21:57 94 Nasal Cannula 4.00 04/05/17 21:00 72 04/05/17 20:00 68 04/05/17 19:48 95 Nasal Cannula 3.00 04/05/17 19:00 69 04/05/17 18:01 71 04/05/17 17:42 72 04/05/17 16:04 96 Nasal Cannula 3.00 04/05/17 16:01 67 04/05/17 15:57 98.6 68 18 156/75 94 04/05/17 15:57 69 04/05/17 15:57 94 Nasal Cannula 4.00 04/05/17 14:10 70 04/05/17 13:57 73 04/05/17 12:00 70 04/05/17 11:55 95 Nasal Cannula 4.00 04/05/17 11:55 69 04/05/17 11:55 98.1 74 18 178/81 95 04/05/17 11:31 98.2 73 17 177/83 96 CBC/BMP: 04/06/17 0432 04/06/17 0432 Lab Results Laboratory Tests Test 04/06/17 04:32 White Blood Count 6.7 TH/MM3 Red Blood Count 3.89 MIL/MM3 Hemoglobin 10.2 GM/DL Hematocrit 32.1 % Mean Corpuscular Volume 82.6 FL Mean Corpuscular Hemoglobin 26.4 PG Mean Corpuscular Hemoglobin 31.9 % Concent Red Cell Distribution Width 15.0 % Platelet Count 193 TH/MM3 Mean Platelet Volume 9.0 FL Sodium Level 142 MEQ/L Potassium Level 4.4 MEQ/L Chloride Level 111 MEQ/L Carbon Dioxide Level 22.4 MEQ/L Anion Gap 9 MEQ/L Blood Urea Nitrogen 58 MG/DL Creatinine 2.32 MG/DL Estimat Glomerular Filtration 20 ML/MIN Rate Random Glucose 302 MG/DL Calcium Level 9.3 MG/DL Random Vancomycin Level 15.8 COMMENT Physical Exam General General Appearance: Well Developed, No Acute Distress, Comfortable Eyes Eye Exam: Pupils Equal, Pupils Reactive Ears & Nose Ears & Nose Exam: Nasal Mucosa [place] Throat Throat Exam: Oral Mucosa [place] & Moist Neck Neck Exam: Neck Supple Pulmonary Resp Exam: Rhonchi Resp Remarks improving Cardiology CV Exam: Regular, Normal Sinus Rhythm, Murmur Gastrointestinal/Abdomen GI Exam: Soft, Non-Tender, Bowel Sounds Present, Non-Distended Musculoskeletal MS Exam: Joints Intact Integumentary Skin Exam: Warm, Dry Extremeties Extremities Exam: Pedal Pulses Palpable Neurologic Neuro Exam: Alert, Awake, Oriented, Speech Clear, Moving All Extremities, No Focal Deficits Psychiatric Psych Exam: Appropriate Responses Assessment/Plan Problem List: (1) Sepsis (2) Atrial fibrillation with RVR (3) PNA (pneumonia) (4) UTI (urinary tract infection) (5) SHANNAN (acute kidney injury) (6) DM (diabetes mellitus) (7) Chronic diastolic CHF (congestive heart failure) (8) History of CVA (cerebrovascular accident) (9) HTN (hypertension) (10) Hyperlipidemia (11) Hypernatremia Assessment/Plan A/P Assessment and Plan (1) Sepsis (2) Atrial fibrillation with RVR (3) PNA (pneumonia) (4) UTI (urinary tract infection) (5) SHANNAN (acute kidney injury) (6) DM (diabetes mellitus) (7) Chronic diastolic CHF (congestive heart failure) (8) History of CVA (cerebrovascular accident) (9) HTN (hypertension) (10) Hyperlipidemia (11) Hypernatremia Plan sepsis, sec. PNA, UTI continue IV abx Vanco,Cefepime, switch to po antibiotics soon follow cultures, so far neg flu test neg lactic acid trending down to normal Hypoxia, SOB, resp insufficiency continue oxygen Duonebs QID and PRN iv steroid Methylprednisolone 450 mg i/v q12h Mucinex SHANNAN, Cr fluctuating CR 2.32 today on torsemide 10 mgh po daily, home dose monitor BMP afib RVR, controlled rate off of cardizem drip,on po cardizem cardiology consult and input theresa SR on monitor continue Eliquis Hypernatremia will monitor on diuretic DM II accuchecks AC/HS with ISS ? coughing with foods Swallow eval theresa mech soft diet with nectar thick liquid Continue with Eliquis for DVT prophylaxis PT eval Labs in am condition guarded D/W RN D/W pt. PT eval cond guarded prog guarded Problem Qualifiers (1) Sepsis: Qualified Code: A41.9 - Sepsis, due to unspecified organism (2) PNA (pneumonia): (3) UTI (urinary tract infection): Qualified Code: N30.00 - Acute cystitis without hematuria (4) DM (diabetes mellitus): (5) HTN (hypertension): Qualified Code: I10 - Essential hypertension (6) Hyperlipidemia: Qualified Code: E78.5 - Hyperlipidemia, unspecified hyperlipidemia type Do Helm MD April 06, 2017 11:03
--- NOTE | 2017-04-06 13:10 | EKG ---
Date Performed: 04/06/2017 Time Performed: 04:41:54 PTAGE: 77 years EKG: Sinus bradycardia Lateral ST-T changes are nonspecific Borderline ECG Compared to prior tra cing no significant change PREVIOUS TRACING : 04/04/2017 06.33 DOCTOR: Dwayne Basilio Interpretating Date/Time 04/06/2017 13:09:15
--- NOTE | 2017-04-06 18:51 | HHI.PR ---
Subjective Remarks 77 YOWF with Basal infilt, AF,DM,CHF Feels weak, tired No fever Denies CP or palpitations Started eating better today feels weak Objective Vital Signs Vital Signs Date Time Temp Pulse Resp B/P Pulse Ox O2 Delivery O2 Flow Rate FiO2 04/06/17 18:00 62 04/06/17 17:00 62 04/06/17 16:00 63 04/06/17 16:00 98.4 72 19 167/95 94 04/06/17 16:00 Nasal Cannula 4.00 04/06/17 15:00 62 04/06/17 14:00 68 04/06/17 13:00 72 04/06/17 12:00 67 04/06/17 12:00 Nasal Cannula 3.00 04/06/17 12:00 98.2 68 16 187/92 95 04/06/17 11:00 70 04/06/17 10:00 78 04/06/17 09:55 16 04/06/17 09:00 60 04/06/17 08:00 64 04/06/17 08:00 Nasal Cannula 3.00 04/06/17 08:00 98.0 61 16 186/92 95 04/06/17 07:30 94 Nasal Cannula 3.00 04/06/17 07:00 52 04/06/17 06:00 56 04/06/17 05:00 57 04/06/17 04:23 98.2 57 18 163/73 95 04/06/17 04:00 63 04/06/17 03:18 93 Nasal Cannula 3.00 04/06/17 03:00 52 04/06/17 02:00 54 04/06/17 01:00 54 04/06/17 00:02 98.2 62 18 162/81 94 04/06/17 00:02 94 Nasal Cannula 3.00 04/06/17 00:00 56 04/05/17 23:00 65 04/05/17 22:05 162/80 04/05/17 22:01 98.1 68 18 172/76 95 04/05/17 22:00 62 04/05/17 21:57 94 Nasal Cannula 4.00 04/05/17 21:00 72 04/05/17 20:00 68 04/05/17 19:48 95 Nasal Cannula 3.00 04/05/17 19:00 69 I/O 04/05/17 04/05/17 04/05/17 04/06/17 04/06/17 04/06/17 07:00 15:00 23:00 07:00 15:00 23:00 Intake Total 718 ml 0 ml 1070 ml 480 ml 1356 ml Output Total 550 ml 1000 ml 725 ml 950 ml Balance 718 ml -550 ml 70 ml -245 ml 406 ml Intake Oral 0 ml 720 ml 480 ml 956 ml IV Total 718 ml 350 ml 400 ml Output Urine Total 550 ml 1000 ml 725 ml 950 ml Stool Total 0 ml # Bowel Movements 0 0 Result Diagram: 04/06/1743104/06/17431 Objective Remarks GENERAL: Elderly female mild sob SKIN: Warm and dry. HEAD: Normocephalic. EYES: No scleral icterus. No injection or drainage. NECK: Supple, trachea midline. No JVD or lymphadenopathy. CARDIOVASCULAR: Regular rate and rhythm without murmurs, gallops, or rubs. RESPIRATORY: Breath sounds equal bilaterally. No accessory muscle use. Basal rales GASTROINTESTINAL: Abdomen soft, non-tender, nondistended. MUSCULOSKELETAL: No cyanosis, , ++ edema. BACK: Nontender without obvious deformity. No CVA tenderness. A/P Assessment and Plan Basl Pneumonia AF CHF DM HTN PLAN: Supplement 02 with NC to keep sat >90% Aerosol nebs Cont Abx Cefepime Diltiazem for rate controll Eliquis 2.5 mg bid Alvaro Wilcox MD April 06, 2017 18:51
[2017-04-06] MEDS: CARVEDILOL 3.125 MG TAB PO SCH (21:44)
[2017-04-06] MEDS: ATORVASTATIN 10 MG TAB PO SCH (21:45)
[2017-04-06] MEDS: MIRTAZAPINE 15 MG TAB PO SCH (21:46)
[2017-04-07] VITALS (19 sets, daily range): BP systolic 154–188; BP diastolic 77–93; PULSE 46–58; RESP 18; TEMP 97.2–97.9; O2SAT 7–96
[2017-04-07] MEDS: hydrALAZINE HCL 50 MG TAB PO SCH ×4 (00:29→18:00)
[2017-04-07 06:23] LABS: AUTOMATED NEUTROPHIL # 7.5 TH/MM3 (1.8-7.7); BASOPHIL % 0.1 % (0.0-2.0); LYMPH % 6.5 % (9.0-44.0); LYMPHOCYTE # 0.6 TH/MM3 (1.0-4.8); MEAN CELL VOLUME 82.6 FL (80.0-100.0); MEAN CORPUSCULAR HEMOGLOBIN 26.3 PG (27.0-34.0); MEAN CORPUSCULAR HGB CONC 31.9 % (32.0-36.0); MONO % 6.8 % (0.0-8.0); NEUT % 86.6 % (16.0-70.0); PLATELET COUNT 199 TH/MM3 (150-450); RED BLOOD COUNT 4.24 MIL/MM3 (4.00-5.30); RED CELL DISTRIBUTION WIDTH 14.9 % (11.6-17.2); WHITE BLOOD COUNT 8.6 TH/MM3 (4.0-11.0)
[2017-04-07 06:31] LABS: HEMO FLAGS AUTO DIFF
[2017-04-07 06:47] LABS: BICARBONATE 23.9 MEQ/L (21.0-32.0); POTASSIUM 4.3 MEQ/L (3.5-5.1)
[2017-04-07] MEDS: INSULIN ASPART SUPPLEMENTAL SCALE SQ SCH ×4 (06:57→21:00)
[2017-04-07] MEDS: ISOSORBIDE MONONITRATE 30 MG TAB PO SCH (07:00)
[2017-04-07 07:58] LABS: BANDS 3 % (0-6); EOSINOPHILS 1 % (0-4); METAMYELOCYTES 1 % (0-1); MYELOCYTES 8 % (0-0); NEUTROPHIL # MANUAL DIFF 7.8 TH/MM3 (1.8-7.7); POLYS (SEG NEUTROPHILS) 79 % (16-70); WBC DIFF SAMPLE 100
[2017-04-07 07:59] LABS: OVALOCYTES 1+ (NORMAL); PLATELET ESTIMATE SMEAR NORMAL (NORMAL)
[2017-04-07 08:00] LABS: PLATELET MORPHOLOGY NORMAL (NORMAL); SCAN/DIFF FINAL DIFF MANUAL
[2017-04-07] MEDS: SODIUM CHLORIDE 0.9% FLUSH 10 ML FLUSH IV FLUSH SCH ×2 (09:00→22:59)
[2017-04-07] MEDS: POLYETHYLENE GLYCOL 17 GM PKG PO SCH (09:11)
[2017-04-07] MEDS: PREGABALIN 100 MG CAP PO SCH ×2 (09:12→22:57)
[2017-04-07] MEDS: APIXABAN 2.5 MG TABLET PO SCH ×2 (09:12→22:57)
[2017-04-07] MEDS: CARVEDILOL 3.125 MG TAB PO SCH (09:12)
[2017-04-07] MEDS: TORSEMIDE 5 MG TAB PO SCH (09:12)
[2017-04-07] MEDS: methylPREDNISolone SOD SUCC 40 MG/1 ML VIAL IV PUSH SCH (09:12)
[2017-04-07] MEDS: POTASSIUM CHLORIDE 10 MEQ CAP PO SCH ×2 (09:12→22:58)
[2017-04-07] MEDS: LORATADINE 10 MG TAB PO SCH (09:12)
[2017-04-07] MEDS: LOSARTAN 50 MG TAB PO SCH (09:13)
[2017-04-07] MEDS: PANTOPRAZOLE SOD 20 MG DELAYED RELEASE TAB PO SCH (09:13)
[2017-04-07] MEDS: guaiFENesin E.R. 600 MG TAB PO SCH ×2 (09:13→22:58)
[2017-04-07] MEDS: PROPAFENONE HCL 150 MG TAB PO SCH ×2 (09:13→22:56)
[2017-04-07] MEDS: DILTIAZEM HCL 60 MG TAB PO SCH ×2 (09:13→12:20)
[2017-04-07] MEDS: CEFEPIME INJ 2,000 MG in SODIUM CHLORIDE 0.9% INJ 100 ML IV SCH (10:00)
[2017-04-07] MEDS: TIOTROPIUM BROMIDE 18 MCG INH INH SCH (10:22)
[2017-04-07] MEDS: FLUTICASONE PROPIONATE 50 MCG/ACT 16 GM NASAL SPRAY EACH NARE SCH ×2 (10:23→22:59)
[2017-04-07] MEDS ORDERED: MAGNESIUM HYDROXIDE SUSP 30 ML CUP PO PRN (11:00)
[2017-04-07] MEDS: DOCUSATE SODIUM 100 MG CAP PO SCH ×2 (11:00→22:57)
--- NOTE | 2017-04-07 11:45 | HHI.PR ---
Subjective Interval History AWAKEalert today on 3 L NC finished breakfast answering questions appropriately no family at bed side no BM increased Blood glucose BP better controlled no other complaints Vitals/Results Intake & Output 04/06/17 04/06/17 04/07/17 15:00 23:00 07:00 Intake Total 1356 ml 300 ml Output Total 950 ml 1300 ml Balance 406 ml -1000 ml Intake Oral 956 ml 300 ml IV Total 400 ml 0 ml Output Urine Total 950 ml 1300 ml # Bowel Movements 0 Vital Signs Vital Signs Date Time Temp Pulse Resp B/P Pulse Ox O2 Delivery O2 Flow Rate FiO2 04/07/17 10:57 18 04/07/17 05:21 97.2 58 18 154/93 7 04/07/17 04:11 Nasal Cannula 3.00 04/07/17 04:00 48 04/07/17 03:20 Nasal Cannula 3.00 04/07/17 03:00 56 04/07/17 02:00 50 04/07/17 01:00 56 04/07/17 00:00 58 04/06/17 23:00 62 04/06/17 22:00 66 04/06/17 21:02 95 Nasal Cannula 3.00 04/06/17 21:00 64 04/06/17 20:55 Nasal Cannula 3.00 04/06/17 20:20 97.1 78 18 188/93 94 04/06/17 20:00 74 04/06/17 19:00 60 04/06/17 18:00 62 04/06/17 17:00 62 04/06/17 16:00 63 04/06/17 16:00 98.4 72 19 167/95 94 04/06/17 16:00 Nasal Cannula 4.00 04/06/17 15:00 62 04/06/17 14:00 68 04/06/17 13:00 72 04/06/17 12:00 67 04/06/17 12:00 Nasal Cannula 3.00 04/06/17 12:00 98.2 68 16 187/92 95 CBC/BMP: 04/07/17 0536 04/07/17 0536 Lab Results Laboratory Tests Test 04/07/17 05:36 White Blood Count 8.6 TH/MM3 Red Blood Count 4.24 MIL/MM3 Hemoglobin 11.2 GM/DL Hematocrit 35.0 % Mean Corpuscular Volume 82.6 FL Mean Corpuscular Hemoglobin 26.3 PG Mean Corpuscular Hemoglobin 31.9 % Concent Red Cell Distribution Width 14.9 % Platelet Count 199 TH/MM3 Mean Platelet Volume 9.3 FL Neutrophils (%) (Auto) 86.6 % Lymphocytes (%) (Auto) 6.5 % Monocytes (%) (Auto) 6.8 % Eosinophils (%) (Auto) 0.0 % Basophils (%) (Auto) 0.1 % Neutrophils # (Auto) 7.5 TH/MM3 Lymphocytes # (Auto) 0.6 TH/MM3 Monocytes # (Auto) 0.6 TH/MM3 Eosinophils # (Auto) 0.0 TH/MM3 Basophils # (Auto) 0.0 TH/MM3 CBC Comment AUTO DIFF Differential Total Cells 100 Counted Neutrophils % (Manual) 79 % Band Neutrophils % 3 % Lymphocytes % 3 % Monocytes % 5 % Eosinophils % 1 % Neutrophils # (Manual) 7.8 TH/MM3 Metamyelocytes 1 % Myelocytes 8 % Differential Comment FINAL DIFF MANUAL Platelet Estimate NORMAL Platelet Morphology Comment NORMAL Ovalocytes 1+ Sodium Level 139 MEQ/L Potassium Level 4.3 MEQ/L Chloride Level 106 MEQ/L Carbon Dioxide Level 23.9 MEQ/L Anion Gap 9 MEQ/L Blood Urea Nitrogen 67 MG/DL Creatinine 2.06 MG/DL Estimat Glomerular Filtration 23 ML/MIN Rate Random Glucose 334 MG/DL Calcium Level 9.6 MG/DL Physical Exam General General Appearance: Well Developed, No Acute Distress, Comfortable Eyes Eye Exam: Pupils Equal, Pupils Reactive Ears & Nose Ears & Nose Exam: Nasal Mucosa [place] Throat Throat Exam: Oral Mucosa [place] & Moist Neck Neck Exam: Neck Supple Pulmonary Resp Exam: Rhonchi Resp Remarks improving Cardiology CV Exam: Regular, Normal Sinus Rhythm, Murmur Gastrointestinal/Abdomen GI Exam: Soft, Non-Tender, Bowel Sounds Present, Non-Distended Musculoskeletal MS Exam: Joints Intact Integumentary Skin Exam: Warm, Dry Extremeties Extremities Exam: Pedal Pulses Palpable Neurologic Neuro Exam: Alert, Awake, Oriented, Speech Clear, Moving All Extremities, No Focal Deficits Psychiatric Psych Exam: Appropriate Responses Assessment/Plan Problem List: (1) Sepsis (2) Atrial fibrillation with RVR (3) PNA (pneumonia) (4) UTI (urinary tract infection) (5) SHANNAN (acute kidney injury) (6) DM (diabetes mellitus) (7) Chronic diastolic CHF (congestive heart failure) (8) History of CVA (cerebrovascular accident) (9) HTN (hypertension) (10) Hyperlipidemia (11) Hypernatremia Assessment/Plan A/P Assessment and Plan (1) Sepsis (2) Atrial fibrillation with RVR (3) PNA (pneumonia) (4) UTI (urinary tract infection) (5) SHANNAN (acute kidney injury) (6) DM (diabetes mellitus) (7) Chronic diastolic CHF (congestive heart failure) (8) History of CVA (cerebrovascular accident) (9) HTN (hypertension) (10) Hyperlipidemia (11) Hypernatremia Plan sepsis, sec. PNA, UTI continue IV abx ,Cefepime, switch to po antibiotics soon follow cultures, so far neg flu test neg lactic acid trending down to normal Hypoxia, SOB, resp insufficiency continue oxygen Duonebs QID and PRN d/c Methylprednisolone 40 mg i/v q12h start prednisone 30 mg po bid Mucinex SHANNAN, Cr fluctuating CR slightly better today on torsemide 10 mgh po daily, home dose monitor BMP afib RVR, controlled rate off of cardizem drip,on po cardizem cardiology consult and input theresa SR on monitor continue Eliquis Hypernatremia will monitor on diuretic DM II accuchecks AC/HS with ISS increased Blood glucose hope fully will get better control once steroids weaned off ? coughing with foods Swallow eval theresa mech soft diet with nectar thick liquid constipation Colace scheduled BID PRN milk of magnesia Continue with Eliquis for DVT prophylaxis PT eval Labs in am condition guarded D/W pt. PT eval Problem Qualifiers (1) Sepsis: Qualified Code: A41.9 - Sepsis, due to unspecified organism (2) PNA (pneumonia): (3) UTI (urinary tract infection): Qualified Code: N30.00 - Acute cystitis without hematuria (4) DM (diabetes mellitus): (5) HTN (hypertension): Qualified Code: I10 - Essential hypertension (6) Hyperlipidemia: Qualified Code: E78.5 - Hyperlipidemia, unspecified hyperlipidemia type Do Helm MD April 07, 2017 11:45
[2017-04-07] MEDS: DILTIAZEM HCL 30 MG TAB PO SCH ×2 (18:00→22:55)
--- NOTE | 2017-04-07 19:02 | HHI.PR ---
Subjective Remarks 77 YOWF with Basal infilt, AF,DM,CHF No fever Denies CP or palpitations feels weak Feels little better no cough or sp Objective Vital Signs Vital Signs Date Time Temp Pulse Resp B/P Pulse Ox O2 Delivery O2 Flow Rate FiO2 04/07/17 12:00 97.2 55 18 182/77 94 04/07/17 12:00 94 Nasal Cannula 3.00 04/07/17 10:57 18 04/07/17 08:00 97.9 52 18 172/83 96 04/07/17 05:21 97.2 58 18 154/93 7 04/07/17 04:11 Nasal Cannula 3.00 04/07/17 04:00 48 04/07/17 03:20 Nasal Cannula 3.00 04/07/17 03:00 56 04/07/17 02:00 50 04/07/17 01:00 56 04/07/17 00:00 58 04/06/17 23:00 62 04/06/17 22:00 66 04/06/17 21:02 95 Nasal Cannula 3.00 04/06/17 21:00 64 04/06/17 20:55 Nasal Cannula 3.00 04/06/17 20:20 97.1 78 18 188/93 94 04/06/17 20:00 74 I/O 04/06/17 04/06/17 04/06/17 04/07/17 04/07/17 04/07/17 06:59 14:59 22:59 06:59 14:59 22:59 Intake Total 480 ml 1356 ml 300 ml Output Total 725 ml 950 ml 1300 ml Balance -245 ml 406 ml -1000 ml Intake Oral 480 ml 956 ml 300 ml IV Total 400 ml 0 ml Output Urine Total 725 ml 950 ml 1300 ml Stool Total 0 ml # Bowel Movements 0 Result Diagram: 04/07/17 0536 04/07/17 0536 Objective Remarks GENERAL: Elderly female mild sob SKIN: Warm and dry. HEAD: Normocephalic. EYES: No scleral icterus. No injection or drainage. NECK: Supple, trachea midline. No JVD or lymphadenopathy. CARDIOVASCULAR: Regular rate and rhythm without murmurs, gallops, or rubs. RESPIRATORY: Breath sounds equal bilaterally. No accessory muscle use. Basal rales GASTROINTESTINAL: Abdomen soft, non-tender, nondistended. MUSCULOSKELETAL: No cyanosis, , ++ edema. BACK: Nontender without obvious deformity. No CVA tenderness. A/P Assessment and Plan Basl Pneumonia AF CHF DM HTN PLAN: Supplement 02 with NC to keep sat >90% Aerosol nebs Cont Abx Cefepime Diltiazem for rate controll Eliquis 2.5 mg bid Encourage PO Alvaro Wilcox MD April 07, 2017 19:02
[2017-04-07] MEDS: predniSONE 10 MG TAB PO SCH (22:55)
[2017-04-07] MEDS: ATORVASTATIN 10 MG TAB PO SCH (22:56)
[2017-04-07] MEDS: CARVEDILOL 6.25 MG TAB PO SCH (22:57)
[2017-04-07] MEDS: MIRTAZAPINE 15 MG TAB PO SCH (22:58)
[2017-04-08] VITALS (11 sets, daily range): BP systolic 166–220; BP diastolic 77–98; PULSE 52–62; RESP 14–16; TEMP 97.7–98.1; O2SAT 96–99
[2017-04-08] MEDS: hydrALAZINE HCL 50 MG TAB PO SCH ×5 (02:56→23:56)
[2017-04-08 06:29] LABS: AUTOMATED NEUTROPHIL # 7.9 TH/MM3 (1.8-7.7); HEMATOCRIT 35.7 % (35.0-46.0); LYMPH % 6.8 % (9.0-44.0); LYMPHOCYTE # 0.6 TH/MM3 (1.0-4.8); MEAN CORPUSCULAR HEMOGLOBIN 26.9 PG (27.0-34.0); MEAN CORPUSCULAR HGB CONC 33.2 % (32.0-36.0); MONO % 4.5 % (0.0-8.0); NEUT % 88.7 % (16.0-70.0); PLATELET COUNT 227 TH/MM3 (150-450)
[2017-04-08 06:30] LABS: HEMO FLAGS AUTO DIFF
[2017-04-08 06:45] LABS: BICARBONATE 24.7 MEQ/L (21.0-32.0); POTASSIUM 4.3 MEQ/L (3.5-5.1)
[2017-04-08] MEDS: INSULIN ASPART SUPPLEMENTAL SCALE SQ SCH ×4 (07:00→21:24)
[2017-04-08] MEDS: ISOSORBIDE MONONITRATE 30 MG TAB PO SCH (07:05)
[2017-04-08 08:08] LABS: BANDS 2 % (0-6); METAMYELOCYTES 2 % (0-1); MYELOCYTES 6 % (0-0); NEUTROPHIL # MANUAL DIFF 7.8 TH/MM3 (1.8-7.7); POLYS (SEG NEUTROPHILS) 77 % (16-70); WBC DIFF SAMPLE 100
[2017-04-08 08:09] LABS: PLATELET ESTIMATE SMEAR NORMAL (NORMAL); PLATELET MORPHOLOGY NORMAL (NORMAL); SCAN/DIFF FINAL DIFF MANUAL
[2017-04-08] MEDS: TIOTROPIUM BROMIDE 18 MCG INH INH SCH (09:00)
[2017-04-08] MEDS: FLUTICASONE PROPIONATE 50 MCG/ACT 16 GM NASAL SPRAY EACH NARE SCH ×2 (09:00→21:15)
[2017-04-08] MEDS: CEFEPIME INJ 2,000 MG in SODIUM CHLORIDE 0.9% INJ 100 ML IV SCH (10:34)
[2017-04-08] MEDS: PANTOPRAZOLE SOD 20 MG DELAYED RELEASE TAB PO SCH (10:35)
[2017-04-08] MEDS: PREGABALIN 100 MG CAP PO SCH ×2 (10:35→21:16)
[2017-04-08] MEDS: TORSEMIDE 5 MG TAB PO SCH (10:35)
[2017-04-08] MEDS: LOSARTAN 50 MG TAB PO SCH (10:36)
[2017-04-08] MEDS: SODIUM CHLORIDE 0.9% FLUSH 10 ML FLUSH IV FLUSH SCH ×2 (10:36→21:00)
[2017-04-08] MEDS: CARVEDILOL 6.25 MG TAB PO SCH (10:36)
[2017-04-08] MEDS: PROPAFENONE HCL 150 MG TAB PO SCH ×2 (10:36→21:17)
[2017-04-08] MEDS: APIXABAN 2.5 MG TABLET PO SCH ×2 (10:36→21:16)
[2017-04-08] MEDS: guaiFENesin E.R. 600 MG TAB PO SCH ×2 (10:36→21:16)
[2017-04-08] MEDS: LORATADINE 10 MG TAB PO SCH (10:36)
[2017-04-08] MEDS: DILTIAZEM HCL 30 MG TAB PO SCH (10:36)
[2017-04-08] MEDS: POTASSIUM CHLORIDE 10 MEQ CAP PO SCH ×2 (10:36→21:17)
[2017-04-08] MEDS: DOCUSATE SODIUM 100 MG CAP PO SCH ×2 (10:36→21:17)
[2017-04-08] MEDS: predniSONE 10 MG TAB PO SCH ×2 (10:37→21:16)
[2017-04-08] MEDS: POLYETHYLENE GLYCOL 17 GM PKG PO SCH (10:37)
[2017-04-08] MEDS ORDERED: VANCOMYCIN INJ 1,500 MG in SODIUM CHLORID 0.9% 500 ML INJ 500 ML IV ONE (12:00)
--- NOTE | 2017-04-08 13:30 | HHI.PR ---
Subjective Interval History awake alert and oriented working with PT per nursing has intermittent episodes of confusion BP better, but still high HR in 50s no sob no chest pain no family at bed side blood glucose high Vitals/Results Intake & Output 04/07/17 04/07/17 04/08/17 15:00 23:00 07:00 Intake Total 800 ml Output Total 1800 ml Balance -1000 ml Intake Oral 600 ml IV Total 200 ml Output Urine Total 1800 ml Vital Signs Vital Signs Date Time Temp Pulse Resp B/P Pulse Ox O2 Delivery O2 Flow Rate FiO2 04/08/17 12:47 96 Nasal Cannula 3.00 04/08/17 11:38 18 04/08/17 08:00 97.8 54 14 167/80 97 04/08/17 08:00 54 04/08/17 08:00 Nasal Cannula 3.00 04/08/17 04:26 55 04/08/17 04:24 98.1 56 14 166/77 98 04/08/17 04:23 Nasal Cannula 3.00 04/08/17 03:00 60 04/08/17 02:40 Nasal Cannula 3.00 04/08/17 00:00 97.8 55 14 184/84 97 04/07/17 22:02 Nasal Cannula 3.00 04/07/17 21:38 94 3.00 04/07/17 20:00 97.9 57 18 188/85 93 04/07/17 18:00 56 04/07/17 17:00 56 04/07/17 16:00 57 04/07/17 16:00 93 Nasal Cannula 3.00 04/07/17 16:00 97.6 58 18 171/78 93 04/07/17 16:00 58 04/07/17 14:00 56 CBC/BMP: 04/08/17 0510 04/08/17 0510 Lab Results Laboratory Tests Test 04/08/17 05:10 White Blood Count 9.0 TH/MM3 Red Blood Count 4.40 MIL/MM3 Hemoglobin 11.8 GM/DL Hematocrit 35.7 % Mean Corpuscular Volume 81.0 FL Mean Corpuscular Hemoglobin 26.9 PG Mean Corpuscular Hemoglobin 33.2 % Concent Red Cell Distribution Width 15.0 % Platelet Count 227 TH/MM3 Mean Platelet Volume 9.4 FL Neutrophils (%) (Auto) 88.7 % Lymphocytes (%) (Auto) 6.8 % Monocytes (%) (Auto) 4.5 % Eosinophils (%) (Auto) 0.0 % Basophils (%) (Auto) 0.0 % Neutrophils # (Auto) 7.9 TH/MM3 Lymphocytes # (Auto) 0.6 TH/MM3 Monocytes # (Auto) 0.4 TH/MM3 Eosinophils # (Auto) 0.0 TH/MM3 Basophils # (Auto) 0.0 TH/MM3 CBC Comment AUTO DIFF Differential Total Cells 100 Counted Neutrophils % (Manual) 77 % Band Neutrophils % 2 % Lymphocytes % 7 % Monocytes % 6 % Neutrophils # (Manual) 7.8 TH/MM3 Metamyelocytes 2 % Myelocytes 6 % Differential Comment FINAL DIFF MANUAL Platelet Estimate NORMAL Platelet Morphology Comment NORMAL Red Cell Morphology Comment NORMAL Sodium Level 141 MEQ/L Potassium Level 4.3 MEQ/L Chloride Level 106 MEQ/L Carbon Dioxide Level 24.7 MEQ/L Anion Gap 10 MEQ/L Blood Urea Nitrogen 69 MG/DL Creatinine 1.83 MG/DL Estimat Glomerular Filtration 27 ML/MIN Rate Random Glucose 249 MG/DL Calcium Level 10.1 MG/DL Random Vancomycin Level 12.5 COMMENT Physical Exam General General Appearance: Well Developed, No Acute Distress, Comfortable Eyes Eye Exam: Pupils Equal, Pupils Reactive Ears & Nose Ears & Nose Exam: Nasal Mucosa [place] Throat Throat Exam: Oral Mucosa [place] & Moist Neck Neck Exam: Neck Supple Pulmonary Resp Exam: Rhonchi Resp Remarks improving Cardiology CV Exam: Regular, Normal Sinus Rhythm, Murmur Gastrointestinal/Abdomen GI Exam: Soft, Non-Tender, Bowel Sounds Present, Non-Distended Musculoskeletal MS Exam: Joints Intact Integumentary Skin Exam: Warm, Dry Extremeties Extremities Exam: Pedal Pulses Palpable Neurologic Neuro Exam: Alert, Awake, Oriented, Speech Clear, Moving All Extremities, No Focal Deficits Psychiatric Psych Exam: Appropriate Responses Assessment/Plan Problem List: (1) Sepsis (2) Atrial fibrillation with RVR (3) PNA (pneumonia) (4) UTI (urinary tract infection) (5) SHANNAN (acute kidney injury) (6) DM (diabetes mellitus) (7) Chronic diastolic CHF (congestive heart failure) (8) History of CVA (cerebrovascular accident) (9) HTN (hypertension) (10) Hyperlipidemia (11) Hypernatremia Assessment/Plan A/P Assessment and Plan (1) Sepsis (2) Atrial fibrillation with RVR (3) PNA (pneumonia) (4) UTI (urinary tract infection) (5) SHANNAN (acute kidney injury) (6) DM (diabetes mellitus) (7) Chronic diastolic CHF (congestive heart failure) (8) History of CVA (cerebrovascular accident) (9) HTN (hypertension) (10) Hyperlipidemia (11) Hypernatremia Plan sepsis, sec. PNA, UTI continue IV abx ,Cefepime, switch to po antibiotics soon follow cultures, so far neg flu test neg lactic acid normal Hypoxia, SOB, resp insufficiency continue oxygen Duonebs QID and PRN d/c Methylprednisolone , prednisone 30 mg po bid, will decrease to 20 mg po bid Mucinex SHANNAN, Cr fluctuating CR slightly better today on torsemide 10 mgh po daily, home dose monitor BMP afib RVR, controlled rate on po cardizem, heart rate in 50s will d/c cardizem and increase BB for better BP control increase Imdur cardiology consult and input theresa SR on monitor continue Eliquis Hypernatremia resolved on diuretic DM II accuchecks AC/HS with ISS increased Blood glucose hope fully will get better control once steroids weaned off ? coughing with foods Swallow eval theresa mech soft diet with nectar thick liquid constipation Colace scheduled BID PRN milk of magnesia Continue with Eliquis for DVT prophylaxis PT eval Discontinue Cal[place]jas catheter Labs in am condition guarded D/W pt. d/w nursing staff Problem Qualifiers (1) Sepsis: Qualified Code: A41.9 - Sepsis, due to unspecified organism (2) PNA (pneumonia): (3) UTI (urinary tract infection): Qualified Code: N30.00 - Acute cystitis without hematuria (4) DM (diabetes mellitus): (5) HTN (hypertension): Qualified Code: I10 - Essential hypertension (6) Hyperlipidemia: Qualified Code: E78.5 - Hyperlipidemia, unspecified hyperlipidemia type Do Helm MD April 08, 2017 13:30
--- NOTE | 2017-04-08 15:37 | HHI.PR ---
Subjective Remarks 77 YOWF with Basal infilt, AF,DM,CHF No fever Denies CP or palpitations feels weak Feels little better no cough or sp Objective Vital Signs Vital Signs Date Time Temp Pulse Resp B/P Pulse Ox O2 Delivery O2 Flow Rate FiO2 04/08/17 12:47 96 Nasal Cannula 3.00 04/08/17 12:00 Nasal Cannula 3.00 04/08/17 12:00 97.8 62 14 200/94 97 04/08/17 12:00 62 04/08/17 11:38 18 04/08/17 08:00 97.8 54 14 167/80 97 04/08/17 08:00 54 04/08/17 08:00 Nasal Cannula 3.00 04/08/17 04:26 55 04/08/17 04:24 98.1 56 14 166/77 98 04/08/17 04:23 Nasal Cannula 3.00 04/08/17 03:00 60 04/08/17 02:40 Nasal Cannula 3.00 04/08/17 00:00 97.8 55 14 184/84 97 04/07/17 22:02 Nasal Cannula 3.00 04/07/17 21:38 94 3.00 04/07/17 20:00 97.9 57 18 188/85 93 04/07/17 18:00 56 04/07/17 17:00 56 04/07/17 16:00 57 04/07/17 16:00 93 Nasal Cannula 3.00 04/07/17 16:00 97.6 58 18 171/78 93 04/07/17 16:00 58 I/O 04/07/17 04/07/17 04/07/17 04/08/17 04/08/17 04/08/17 07:00 15:00 23:00 07:00 15:00 23:00 Intake Total 300 ml 800 ml 360 ml Output Total 1300 ml 1800 ml 1000 ml Balance -1000 ml -1000 ml -640 ml Intake Oral 300 ml 600 ml 360 ml IV Total 0 ml 200 ml Output Urine Total 1300 ml 1800 ml 1000 ml Result Diagram: 04/08/1750904/08/17509 Objective Remarks GENERAL: Elderly female mild sob SKIN: Warm and dry. HEAD: Normocephalic. EYES: No scleral icterus. No injection or drainage. NECK: Supple, trachea midline. No JVD or lymphadenopathy. CARDIOVASCULAR: Regular rate and rhythm without murmurs, gallops, or rubs. RESPIRATORY: Breath sounds equal bilaterally. No accessory muscle use. Basal rales GASTROINTESTINAL: Abdomen soft, non-tender, nondistended. MUSCULOSKELETAL: No cyanosis, , ++ edema. BACK: Nontender without obvious deformity. No CVA tenderness. A/P Assessment and Plan Basl Pneumonia AF CHF DM HTN PLAN: Supplement 02 with NC to keep sat >90% Aerosol nebs Diltiazem for rate controll Eliquis 2.5 mg bid Encourage PO DW Po Abx DC plans underway. Alvaro Wilcox MD April 08, 2017 15:37
[2017-04-08 16:17] LABS: HEMOGLOBIN A1a 1.2 %; HEMOGLOBIN Ao 78.4 %; HEMOGLOBIN LA1C 3.5 %; HEMOGLOBIN P3 7.5 %
[2017-04-08] MEDS: LORazepam 2 MG/ML VIAL IV PUSH PRN (16:35)
[2017-04-08] MEDS: ATORVASTATIN 10 MG TAB PO SCH (21:15)
[2017-04-08] MEDS: MIRTAZAPINE 15 MG TAB PO SCH (21:16)
[2017-04-08] MEDS: CARVEDILOL 12.5 MG TAB PO SCH (21:16)
[2017-04-08] MEDS: traMADol HCL 50 MG TAB PO PRN (21:17)
[2017-04-09] VITALS (22 sets, daily range): BP systolic 146–195; BP diastolic 64–85; PULSE 48–72; RESP 14–18; TEMP 97.6–97.9; O2SAT 96–99
[2017-04-09] MEDS: amLODIPine BESYLATE 5 MG TAB PO SCH ×2 (00:23→08:58)
[2017-04-09] MEDS: cloNIDine HCL 0.1 MG TAB PO PRN (04:30)
[2017-04-09] MEDS: INSULIN ASPART SUPPLEMENTAL SCALE SQ SCH ×3 (06:12→15:43)
[2017-04-09] MEDS: ISOSORBIDE MONONITRATE 60 MG TAB PO SCH (06:13)
[2017-04-09] MEDS: hydrALAZINE HCL 50 MG TAB PO SCH ×3 (06:13→17:00)
[2017-04-09] MEDS: CEFEPIME INJ 2,000 MG in SODIUM CHLORIDE 0.9% INJ 100 ML IV SCH (08:57)
[2017-04-09] MEDS: FLUTICASONE PROPIONATE 50 MCG/ACT 16 GM NASAL SPRAY EACH NARE SCH ×2 (08:57→21:00)
[2017-04-09] MEDS: LORATADINE 10 MG TAB PO SCH (08:57)
[2017-04-09] MEDS: PROPAFENONE HCL 150 MG TAB PO SCH ×2 (08:57→21:26)
[2017-04-09] MEDS: guaiFENesin E.R. 600 MG TAB PO SCH ×2 (08:57→21:26)
[2017-04-09] MEDS: SODIUM CHLORIDE 0.9% FLUSH 10 ML FLUSH IV FLUSH SCH ×2 (08:57→21:25)
[2017-04-09] MEDS: POLYETHYLENE GLYCOL 17 GM PKG PO SCH (08:57)
[2017-04-09] MEDS: TORSEMIDE 5 MG TAB PO SCH (08:58)
[2017-04-09] MEDS: predniSONE 10 MG TAB PO SCH ×2 (08:58→21:28)
[2017-04-09] MEDS: PREGABALIN 100 MG CAP PO SCH ×2 (08:58→21:26)
[2017-04-09] MEDS: CARVEDILOL 12.5 MG TAB PO SCH ×2 (08:58→21:26)
[2017-04-09] MEDS: DOCUSATE SODIUM 100 MG CAP PO SCH ×2 (08:58→21:26)
[2017-04-09] MEDS: PANTOPRAZOLE SOD 20 MG DELAYED RELEASE TAB PO SCH (08:58)
[2017-04-09] MEDS: POTASSIUM CHLORIDE 10 MEQ CAP PO SCH ×2 (08:58→21:26)
[2017-04-09] MEDS: APIXABAN 2.5 MG TABLET PO SCH ×2 (08:58→21:28)
[2017-04-09] MEDS: LOSARTAN 50 MG TAB PO SCH (08:58)
[2017-04-09] MEDS: TIOTROPIUM BROMIDE 18 MCG INH INH SCH (08:59)
[2017-04-09] MEDS: CEFUROXIME AXETIL 500 MG TAB PO SCH ×2 (12:13→21:26)
--- NOTE | 2017-04-09 12:23 | HHI.PR ---
Subjective Interval History awake alert laying in bed appears comfortable high blood sugars no chest pain no sob tom discontinued BP better this am, once checked on her calf no family at bed side want to go to rehab soon no other complaints Vitals/Results Intake & Output 04/08/17 04/08/17 04/09/17 15:00 23:00 07:00 Intake Total 360 ml 1200 ml 200 ml Output Total 1000 ml 750 ml 1100 ml Balance -640 ml 450 ml -900 ml Intake Oral 360 ml 600 ml 200 ml IV Total 600 ml Output Urine Total 1000 ml 750 ml 1100 ml # Bowel Movements 1 Vital Signs Vital Signs Date Time Temp Pulse Resp B/P Pulse Ox O2 Delivery O2 Flow Rate FiO2 04/09/17 11:00 50 04/09/17 10:00 54 04/09/17 09:31 16 04/09/17 09:00 56 04/09/17 08:13 99 Nasal Cannula 3.50 04/09/17 08:00 97.6 54 14 146/64 98 04/09/17 08:00 49 04/09/17 08:00 Nasal Cannula 3.00 04/09/17 07:00 48 04/09/17 04:00 52 04/09/17 04:00 Nasal Cannula 3.00 04/09/17 04:00 97.8 52 16 195/85 98 04/09/17 00:00 52 04/09/17 00:00 Nasal Cannula 3.00 04/08/17 23:58 97.7 52 16 220/95 99 04/08/17 21:25 202/89 04/08/17 20:00 Nasal Cannula 3.00 04/08/17 20:00 59 04/08/17 20:00 97.7 59 16 213/98 99 04/08/17 16:00 62 04/08/17 16:00 Nasal Cannula 3.00 04/08/17 16:00 97.8 62 16 190/93 99 04/08/17 12:47 96 Nasal Cannula 3.00 CBC/BMP: 04/08/17 0510 04/08/17 0510 Physical Exam General General Appearance: Well Developed, No Acute Distress, Comfortable Eyes Eye Exam: Pupils Equal, Pupils Reactive Ears & Nose Ears & Nose Exam: Nasal Mucosa [place] Throat Throat Exam: Oral Mucosa [place] & Moist Neck Neck Exam: Neck Supple Pulmonary Resp Exam: Rhonchi Resp Remarks improving Cardiology CV Exam: Regular, Normal Sinus Rhythm, Murmur Gastrointestinal/Abdomen GI Exam: Soft, Non-Tender, Bowel Sounds Present, Non-Distended Musculoskeletal MS Exam: Joints Intact Integumentary Skin Exam: Warm, Dry Extremeties Extremities Exam: Pedal Pulses Palpable Neurologic Neuro Exam: Alert, Awake, Oriented, Speech Clear, Moving All Extremities, No Focal Deficits Psychiatric Psych Exam: Appropriate Responses Assessment/Plan Problem List: (1) Sepsis (2) Atrial fibrillation with RVR (3) PNA (pneumonia) (4) UTI (urinary tract infection) (5) SHANNAN (acute kidney injury) (6) DM (diabetes mellitus) (7) Chronic diastolic CHF (congestive heart failure) (8) History of CVA (cerebrovascular accident) (9) HTN (hypertension) (10) Hyperlipidemia (11) Hypernatremia Assessment/Plan A/P Assessment and Plan (1) Sepsis (2) Atrial fibrillation with RVR (3) PNA (pneumonia) (4) UTI (urinary tract infection) (5) SHANNAN (acute kidney injury) (6) DM (diabetes mellitus) (7) Chronic diastolic CHF (congestive heart failure) (8) History of CVA (cerebrovascular accident) (9) HTN (hypertension) (10) Hyperlipidemia (11) Hypernatremia Plan sepsis, sec. PNA, UTI discontinue IV abx ,Cefepime, start ceftin culture neg flu test neg lactic acid normal Hypoxia, SOB, resp insufficiency continue oxygen Duonebs QID and PRN d/c Methylprednisolone , prednisone 10 mg po bid Mucinex SHANNAN, Cr fluctuating CR slightly better today on torsemide 10 mgh po daily, home dose monitor BMP afib RVR, controlled rate heart rate in 50s d/c cardizem and increase BB for better BP control increase Imdur Increase Amlodipine cardiology consult and input theresa SR on monitor continue Eliquis Hypernatremia resolved on diuretic DM II accuchecks AC/HS with ISS increased Blood glucose hope fully will get better control once steroids weaned off add Levemir 5 unit sq bid ? coughing with foods Swallow eval theresa mech soft diet with nectar thick liquid constipation Colace scheduled BID PRN milk of magnesia Continue with Eliquis for DVT prophylaxis PT eval: needs rehab Labs in am D/W pt. d/w nursing staff Plan to d/c to SNF in am Problem Qualifiers (1) Sepsis: Qualified Code: A41.9 - Sepsis, due to unspecified organism (2) PNA (pneumonia): (3) UTI (urinary tract infection): Qualified Code: N30.00 - Acute cystitis without hematuria (4) DM (diabetes mellitus): (5) HTN (hypertension): Qualified Code: I10 - Essential hypertension (6) Hyperlipidemia: Qualified Code: E78.5 - Hyperlipidemia, unspecified hyperlipidemia type Do Helm MD April 09, 2017 12:23
[2017-04-09] MEDS: INSULIN DETEMIR 100 UNITS/ML VIAL SQ SCH ×2 (13:16→21:00)
--- NOTE | 2017-04-09 18:18 | HHI.PR ---
Subjective Remarks 77 YOWF with Basal infilt, AF,DM,CHF No fever Denies CP or palpitations feels weak Feels little better has coughing spells with eating Objective Vital Signs Vital Signs Date Time Temp Pulse Resp B/P Pulse Ox O2 Delivery O2 Flow Rate FiO2 04/09/17 16:00 53 04/09/17 16:00 Nasal Cannula 3.00 04/09/17 16:00 97.8 50 18 158/73 97 04/09/17 15:00 48 04/09/17 14:00 54 04/09/17 13:00 56 04/09/17 12:00 53 04/09/17 12:00 Nasal Cannula 3.00 04/09/17 12:00 97.6 50 16 153/69 97 04/09/17 11:00 50 04/09/17 10:00 54 04/09/17 09:31 16 04/09/17 09:00 56 04/09/17 08:13 99 Nasal Cannula 3.50 04/09/17 08:00 97.6 54 14 146/64 98 04/09/17 08:00 49 04/09/17 08:00 Nasal Cannula 3.00 04/09/17 07:00 48 04/09/17 04:00 52 04/09/17 04:00 Nasal Cannula 3.00 04/09/17 04:00 97.8 52 16 195/85 98 04/09/17 00:00 52 04/09/17 00:00 Nasal Cannula 3.00 04/08/17 23:58 97.7 52 16 220/95 99 04/08/17 21:25 202/89 04/08/17 20:00 Nasal Cannula 3.00 04/08/17 20:00 59 04/08/17 20:00 97.7 59 16 213/98 99 I/O 04/08/17 04/08/17 04/08/17 04/09/17 04/09/17 04/09/17 07:00 15:00 23:00 07:00 15:00 23:00 Intake Total 360 ml 1200 ml 200 ml 1136 ml Output Total 1000 ml 750 ml 1100 ml 500 ml Balance -640 ml 450 ml -900 ml 636 ml Intake Oral 360 ml 600 ml 200 ml 1016 ml IV Total 600 ml 120 ml Output Urine Total 1000 ml 750 ml 1100 ml 500 ml # Voids 3 # Bowel Movements 1 0 Result Diagram: 04/08/17 0510 04/08/17 0510 Objective Remarks GENERAL: Elderly female mild sob SKIN: Warm and dry. HEAD: Normocephalic. EYES: No scleral icterus. No injection or drainage. NECK: Supple, trachea midline. No JVD or lymphadenopathy. CARDIOVASCULAR: Regular rate and rhythm without murmurs, gallops, or rubs. RESPIRATORY: Breath sounds equal bilaterally. No accessory muscle use. Basal rales GASTROINTESTINAL: Abdomen soft, non-tender, nondistended. MUSCULOSKELETAL: No cyanosis, , ++ edema. BACK: Nontender without obvious deformity. No CVA tenderness. 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
[2017-04-09] MEDS: ATORVASTATIN 10 MG TAB PO SCH (21:26)
[2017-04-09] MEDS: MIRTAZAPINE 15 MG TAB PO SCH (21:28)
[2017-04-10] VITALS (27 sets, daily range): BP systolic 111–165; BP diastolic 48–80; PULSE 50–60; RESP 16; TEMP 97.4–98.4; O2SAT 93–98
[2017-04-10] MEDS: hydrALAZINE HCL 50 MG TAB PO SCH ×4 (01:20→17:01)
[2017-04-10] MEDS: ISOSORBIDE MONONITRATE 60 MG TAB PO SCH (05:54)
[2017-04-10] MEDS: INSULIN ASPART SUPPLEMENTAL SCALE SQ SCH ×2 (07:00→11:21)
[2017-04-10] MEDS: LORATADINE 10 MG TAB PO SCH (08:27)
[2017-04-10] MEDS: amLODIPine BESYLATE 5 MG TAB PO SCH (08:27)
[2017-04-10] MEDS: PREGABALIN 100 MG CAP PO SCH ×2 (08:27→22:00)
[2017-04-10] MEDS: PANTOPRAZOLE SOD 20 MG DELAYED RELEASE TAB PO SCH (08:27)
[2017-04-10] MEDS: CARVEDILOL 12.5 MG TAB PO SCH ×2 (08:27→22:01)
[2017-04-10] MEDS: guaiFENesin E.R. 600 MG TAB PO SCH ×2 (08:27→22:00)
[2017-04-10] MEDS: CEFUROXIME AXETIL 500 MG TAB PO SCH ×2 (08:27→22:00)
[2017-04-10] MEDS: predniSONE 10 MG TAB PO SCH ×2 (08:27→22:00)
[2017-04-10] MEDS: POTASSIUM CHLORIDE 10 MEQ CAP PO SCH ×2 (08:27→22:00)
[2017-04-10] MEDS: APIXABAN 2.5 MG TABLET PO SCH ×2 (08:28→22:01)
[2017-04-10] MEDS: TORSEMIDE 5 MG TAB PO SCH (08:28)
[2017-04-10] MEDS: FLUTICASONE PROPIONATE 50 MCG/ACT 16 GM NASAL SPRAY EACH NARE SCH ×2 (08:28→22:02)
[2017-04-10] MEDS: LOSARTAN 50 MG TAB PO SCH (08:28)
[2017-04-10] MEDS: SODIUM CHLORIDE 0.9% FLUSH 10 ML FLUSH IV FLUSH SCH ×2 (08:28→22:01)
[2017-04-10] MEDS: POLYETHYLENE GLYCOL 17 GM PKG PO SCH (08:28)
[2017-04-10] MEDS: TIOTROPIUM BROMIDE 18 MCG INH INH SCH (08:28)
[2017-04-10] MEDS: DOCUSATE SODIUM 100 MG CAP PO SCH ×2 (08:28→22:01)
[2017-04-10] MEDS: PROPAFENONE HCL 150 MG TAB PO SCH ×2 (08:28→22:00)
[2017-04-10] MEDS: INSULIN DETEMIR 100 UNITS/ML VIAL SQ SCH ×2 (08:43→21:00)
--- NOTE | 2017-04-10 13:56 | HHI.PR ---
Subjective Subjective Remarks resting in bed drowsy, but responds verbally afebrile appetite mild improvement Review of Systems Constitutional Constitutional: Fatigue, Weakness Pulmonary Respiratory: Shortness of Breath (mild) Cardiology CV: Chest Pain (no) Musculoskeletal MS: Weakness Neurologic Neurologic: Lethargic (at times) Psychiatric Psychiatric: Normal Mood Vitals/Results Intake & Output 04/09/17 04/09/17 04/10/17 15:00 23:00 07:00 Intake Total 1136 ml 480 ml Output Total 500 ml Balance 636 ml 480 ml Intake Oral 1016 ml 480 ml IV Total 120 ml 0 ml Output Urine Total 500 ml # Voids 3 4 # Bowel Movements 0 0 Vital Signs Vital Signs Date Time Temp Pulse Resp B/P Pulse Ox O2 Delivery O2 Flow Rate FiO2 04/10/17 12:42 95 Nasal Cannula 2.00 04/10/17 12:00 53 04/10/17 12:00 97.9 53 16 111/59 93 144/64 04/10/17 12:00 Nasal Cannula 2.00 04/10/17 11:00 52 04/10/17 10:00 54 04/10/17 09:21 20 04/10/17 09:00 54 04/10/17 08:00 52 04/10/17 08:00 97.8 52 16 111/48 95 165/74 04/10/17 08:00 Nasal Cannula 2.00 04/10/17 07:00 50 04/10/17 06:00 56 04/10/17 05:53 147/65 04/10/17 05:00 52 04/10/17 04:10 97 Nasal Cannula 3.00 04/10/17 04:00 97.4 53 16 153/80 97 04/10/17 04:00 52 04/10/17 03:00 54 04/10/17 02:00 54 04/10/17 01:00 52 04/10/17 00:30 97.6 52 16 139/75 98 04/10/17 00:00 98 Nasal Cannula 3.00 04/10/17 00:00 53 04/09/17 23:00 50 04/09/17 22:00 58 04/09/17 21:24 97 Nasal Cannula 3.00 04/09/17 21:00 97.9 56 14 172/79 97 04/09/17 21:00 54 04/09/17 20:26 96 Nasal Cannula 2.00 04/09/17 20:00 58 04/09/17 19:30 150/80 04/09/17 19:00 72 04/09/17 18:00 54 04/09/17 17:00 56 04/09/17 16:00 53 04/09/17 16:00 Nasal Cannula 3.00 04/09/17 16:00 97.8 50 18 158/73 97 04/09/17 15:00 48 04/09/17 14:00 54 CBC/BMP: 04/08/17 0510 04/08/17 0510 Current Medications Administered Medications Medications (Trade) Dose Ordered Sig/[place] Route PRN Reason Start Time Stop Time Status Last Admin Dose Admin Sodium Chloride (NS Flush) 2 ml BID IV FLUSH 04/01/17 21:00 04/10/17 08:28 Apixaban (Eliquis) 2.5 mg BID PO 04/01/17 21:00 04/10/17 08:28 Atorvastatin Calcium (Lipitor) 10 mg HS PO 04/01/17 21:00 04/09/17 21:26 Bisacodyl (Dulcolax Supp) 10 mg DAILY PRN RECTAL CONSTIPATION 04/01/17 14:15 04/04/17 19:18 Fluticasone Propionate (Flonase [place] Spr) 1 spray BID EACH NARE 04/01/17 21:00 04/10/17 08:28 Loratadine (Claritin) 10 mg DAILY PO 04/02/17 09:00 04/10/17 08:27 Losartan Potassium (Cozaar) 100 mg DAILY PO 04/02/17 09:00 04/10/17 08:28 Mirtazapine (Remeron) 15 mg HS PO 04/01/17 21:00 04/09/17 21:28 Potassium Chloride (KCl) 10 meq BID PO 04/01/17 21:00 04/10/17 08:27 Pregabalin (Lyrica) 100 mg BID PO 04/01/17 21:00 04/10/17 08:27 Tiotropium [place] (Spiriva Inh) 18 mcg DAILY INH 04/02/17 09:00 04/10/17 08:28 Torsemide (Demadex) 10 mg DAILY PO 04/02/17 09:00 04/10/17 08:28 Tramadol HCl (Ultram) 50 mg Q6H PRN PO PAIN 04/01/17 14:15 04/08/17 21:17 Pantoprazole Sodium (Protonix) 20 mg DAILY PO 04/02/17 09:00 04/10/17 08:27 Guaifenesin (Mucinex Er) 600 mg BID PO 04/02/17 09:30 04/10/17 08:27 Polyethylene Glycol (Miralax) 17 gm DAILY PO 04/03/17 18:45 04/10/17 08:28 Ondansetron HCl (Zofran Inj) 4 mg Q6HR PRN IV PUSH NAUSEA 04/03/17 18:45 04/03/17 19:05 Propafenone HCl (Rythmol) 150 mg BID PO 04/05/17 11:00 04/10/17 08:28 Hydralazine HCl (Apresoline) 50 mg Q6HR PO 04/06/17 18:00 04/10/17 11:21 Docusate Sodium (Colace) 100 mg BID PO 04/07/17 11:00 04/10/17 08:28 Carvedilol (Coreg) 12.5 mg BID PO 04/08/17 21:00 04/10/17 08:27 Isosorbide Mononitrate (Imdur) 60 mg DAILY@0700 PO 04/09/17 07:00 04/10/17 05:54 Clonidine (Catapres) 0.1 mg Q6H PRN PO SBP > 180 04/09/17 00:30 04/09/17 04:30 Cefuroxime Axetil (Ceftin) 500 mg Q12HR PO 04/09/17 12:00 04/10/17 08:27 Amlodipine Besylate (Norvasc) 10 mg DAILY PO 04/10/17 09:00 04/10/17 08:27 Prednisone (Deltasone) 10 mg BID PO 04/09/17 21:00 04/10/17 08:27 Physical Exam General General Appearance: Well Developed, No Acute Distress, Comfortable Eyes Eye Exam: Pupils Equal, Pupils Reactive Ears & Nose Ears & Nose Exam: Nasal Mucosa [place] Throat Throat Exam: Oral Mucosa [place] & Moist Neck Neck Exam: Neck Supple Pulmonary Resp Exam: Rhonchi Resp Remarks low volumes Cardiology CV Exam: Regular, Normal Sinus Rhythm, Murmur CV Remarks atrial fib, SVR Gastrointestinal/Abdomen GI Exam: Soft, Non-Tender, Bowel Sounds Present, Non-Distended Musculoskeletal MS Exam: Joints Intact Integumentary Skin Exam: Warm, Dry Extremeties Extremities Exam: Pedal Pulses Palpable Neurologic Neuro Exam: Alert, Awake, Oriented, Speech Clear, Moving All Extremities, No Focal Deficits Psychiatric Psych Exam: Appropriate Responses Assessment/Plan Problem List: (1) Sepsis (2) Atrial fibrillation with RVR (3) PNA (pneumonia) (4) UTI (urinary tract infection) (5) SHANNAN (acute kidney injury) (6) DM (diabetes mellitus) (7) Chronic diastolic CHF (congestive heart failure) (8) History of CVA (cerebrovascular accident) (9) HTN (hypertension) (10) Hyperlipidemia (11) Hypernatremia Assessment/Plan Plan sepsis, sec. PNA, UTI transition to ceftin PO Hypoxia, SOB, resp insufficiency continue oxygen to keep sats 92 or > Duonebs QID and PRN prednisone 10 mg po bid Mucinex SHANNAN, Cr fluctuating on torsemide 10 mgh po daily, home dose Still shows elevated BUN, creatinine afib RVR, controlled rate heart rate in 50s, increase Imdur, continue Eliquis Increase Amlodipine cardiology consult appreciate DM II accuchecks AC/HS with ISS increased Blood glucose, ss control constipation Colace scheduled BID PRN milk of magnesia Continue with Eliquis for DVT prophylaxis PT eval: needs rehab Labs in am D/W pt. DW , seen on her behalf D/W nurse Plan to d/c to rehab SNF today. Medically stable. Problem Qualifiers (1) Sepsis: Qualified Code: A41.9 - Sepsis, due to unspecified organism (2) PNA (pneumonia): (3) UTI (urinary tract infection): Qualified Code: N30.00 - Acute cystitis without hematuria (4) DM (diabetes mellitus): (5) HTN (hypertension): Qualified Code: I10 - Essential hypertension (6) Hyperlipidemia: Qualified Code: E78.5 - Hyperlipidemia, unspecified hyperlipidemia type Molly Wang April 10, 2017 13:56
[2017-04-10] MEDS ORDERED: LEVEMIR SQ (14:06)
[2017-04-10] MEDS: INSULIN NovoLIN REGULAR SUPPLEMENTAL SCALE SQ SCH ×2 (15:35→22:26)
--- NOTE | 2017-04-10 15:36 | HHI.PR ---
Subjective Remarks 77 YOWF with Basal infilt, AF,DM,CHF No fever Denies CP or palpitations feels weak Feels little better Evalyated by DIE MAKER Objective Vital Signs Vital Signs Date Time Temp Pulse Resp B/P Pulse Ox O2 Delivery O2 Flow Rate FiO2 04/10/17 12:42 95 Nasal Cannula 2.00 04/10/17 12:00 53 04/10/17 12:00 97.9 53 16 111/59 93 144/64 04/10/17 12:00 Nasal Cannula 2.00 04/10/17 11:00 52 04/10/17 10:00 54 04/10/17 09:21 20 04/10/17 09:00 54 04/10/17 08:00 52 04/10/17 08:00 97.8 52 16 111/48 95 165/74 04/10/17 08:00 Nasal Cannula 2.00 04/10/17 07:00 50 04/10/17 06:00 56 04/10/17 05:53 147/65 04/10/17 05:00 52 04/10/17 04:10 97 Nasal Cannula 3.00 04/10/17 04:00 97.4 53 16 153/80 97 04/10/17 04:00 52 04/10/17 03:00 54 04/10/17 02:00 54 04/10/17 01:00 52 04/10/17 00:30 97.6 52 16 139/75 98 04/10/17 00:00 98 Nasal Cannula 3.00 04/10/17 00:00 53 04/09/17 23:00 50 04/09/17 22:00 58 04/09/17 21:24 97 Nasal Cannula 3.00 04/09/17 21:00 97.9 56 14 172/79 97 04/09/17 21:00 54 04/09/17 20:26 96 Nasal Cannula 2.00 04/09/17 20:00 58 04/09/17 19:30 150/80 04/09/17 19:00 72 04/09/17 18:00 54 04/09/17 17:00 56 04/09/17 16:00 53 04/09/17 16:00 Nasal Cannula 3.00 04/09/17 16:00 97.8 50 18 158/73 97 I/O 504/09/17 04/09/17 04/10/17 04/10/17 04/10/17 07:00 15:00 23:00 07:00 15:00 23:00 Intake Total 200 ml 1136 ml 480 ml Output Total 1100 ml 500 ml Balance -900 ml 636 ml 480 ml Intake Oral 200 ml 1016 ml 480 ml IV Total 120 ml 0 ml Output Urine Total 1100 ml 500 ml # Voids 3 4 # Bowel Movements 0 0 Result Diagram: 04/08/1750904/08/17509 Objective Remarks GENERAL: Elderly female mild sob SKIN: Warm and dry. HEAD: Normocephalic. EYES: No scleral icterus. No injection or drainage. NECK: Supple, trachea midline. No JVD or lymphadenopathy. CARDIOVASCULAR: Regular rate and rhythm without murmurs, gallops, or rubs. RESPIRATORY: Breath sounds equal bilaterally. No accessory muscle use. Basal rales GASTROINTESTINAL: Abdomen soft, non-tender, nondistended. MUSCULOSKELETAL: No cyanosis, , ++ edema. BACK: Nontender without obvious deformity. No CVA tenderness. A/P Assessment and Plan Basl Pneumonia AF CHF DM HTN PLAN: Supplement 02 with NC to keep sat >90% Aerosol nebs Diltiazem for rate controll Eliquis 2.5 mg bid Encourage PO DW Po Abx DC Plans for [employer]. Alvaro Wilcox MD April 10, 2017 15:36
--- NOTE | 2017-04-10 16:54 | HHI.DS ---
Discharge Summary Admission Date April 01, 2017 at 14:03 Discharge Date: April 10, 2017 Admitting Diagnosis AFIB WITH RVR, SEPSIS(UTI AND LLL PNA) Brief History This was a pleasant 77-year-old white female who had been in her usual state of health up until the past few days. The patient noted that she had some dysuria along with some mild retention. Within the last 24 hours her symptoms became worse and she developed fever and chills last night. The patient was able to eat her supper last night but had an episode of nausea and vomiting right after supper. The patient denied any body aches. No headaches. No recent weight gain or weight loss. She denied any chest pain and no shortness of breath. She did have a history of atrial fibrillation and cardiovascular disease and she was diabetic type 2. The patient had been at the [facility] facility since last September 2016. She stated that before that time she was living at home with her son. While her son was at work she fell. Son at that point felt like she was not safe to be alone and she has been at [facility] ever since. The staff at [facility] noted the patient to be extremely weak. CBC/BMP: 04/08/17 0510 04/08/17 0510 Significant Findings Laboratory Tests Test 04/08/17 05:10 Mean Corpuscular Hemoglobin 26.9 PG (27.0-34.0) Neutrophils (%) (Auto) 88.7 % (16.0-70.0) Lymphocytes (%) (Auto) 6.8 % (9.0-44.0) Neutrophils # (Auto) 7.9 TH/MM3 (1.8-7.7) Lymphocytes # (Auto) 0.6 TH/MM3 (1.0-4.8) Neutrophils % (Manual) 77 % (16-70) Lymphocytes % 7 % (9-44) Neutrophils # (Manual) 7.8 TH/MM3 (1.8-7.7) Metamyelocytes 2 % (0-1) Myelocytes 6 % (0-0) Blood Urea Nitrogen 69 MG/DL (7-18) Creatinine 1.83 MG/DL (0.50-1.00) Estimat Glomerular Filtration 27 ML/MIN (>89) Rate Random Glucose 249 MG/DL (74-106) Hemoglobin A1c 7.4 % (4.3-6.0) Imaging Last Impressions Head CT 04/04/17 0000 Signed Impressions: Service Date/Time: Tuesday, April 04, 2017 22:18 - CONCLUSION: 1. Old infarct on the right side. 2. Mild atrophy. 3. There is no evidence of interventricular hemorrhage. 4. Sinus disease. Ayden Altman MD Brain MRI 04/04/17 0000 Signed Impressions: Service Date/Time: Tuesday, April 04, 2017 18:41 - CONCLUSION: 1. Focal area of susceptibility artifact in the posterior left lateral ventricle. A small focus of interventricular hemorrhage cannot be excluded. A CT examination would be recommended. 2. Age-related atrophy. 3. Old infarct on the right side as described above. 4. Suspected small vessel ischemic change throughout the white matter. 5. Right-sided sinus disease. Ayden Altman MD Chest X-Ray 04/02/17 0000 Signed Impressions: Service Date/Time: March 17:40 - CONCLUSION: Stable mild consolidation left lower lobe. Maxime Ni MD Abdomen/Pelvis CT 04/01/17 1005 Signed Impressions: Service Date/Time: Saturday, April 01, 2017 12:41 - CONCLUSION: 1. No evidence of acute abdominal or pelvic process. No masses are identified. 2. Diverticulosis without evidence of diverticulitis. 3. Bilateral lower lobe atelectasis versus pneumonia. 4. Severe atrophy of the body and tail of the pancreas Martín Jonas MD PE at Discharge General General Appearance: Well Developed, No Acute Distress, Comfortable Eyes Eye Exam: Pupils Equal, Pupils Reactive Ears & Nose Ears & Nose Exam: Nasal Mucosa [place] Throat Throat Exam: Oral Mucosa [place] & Moist Neck Neck Exam: Neck Supple Pulmonary Resp Exam: Rhonchi Resp Remarks low volumes Cardiology CV Exam: Regular, Normal Sinus Rhythm, Murmur CV Remarks atrial fib, SVR Gastrointestinal/Abdomen GI Exam: Soft, Non-Tender, Bowel Sounds Present, Non-Distended Musculoskeletal MS Exam: Joints Intact Integumentary Skin Exam: Warm, Dry Extremeties Extremities Exam: Pedal Pulses Palpable Neurologic Neuro Exam: Alert, Awake, Oriented, Speech Clear, Moving All Extremities, No Focal Deficits Psychiatric Psych Exam: Appropriate Responses Hospital Course Patient was brought to ER for further evaluation. She was noted to have a fast heart rate, irregular and febrile. She was brought to the emergency room and treated at that time. The patient was given Cardizem boluses. Up to this point she had two boluses and she is on 10 milligrams per minute of Cardizem IV. Her heart rate is controlled in the 90s-110 range. Her blood pressure initially was stable at 139/73 but did get as low as 93/55 during the episodes of Cardizem boluses. She was back now at 107/55. Heart rate was around 106. The patient was drowsy but can respond to verbal stimuli and a fair historian. Patient was admitted to [facility]. These are the diagnosis used to treat patient and her plan of care. (1) Sepsis (2) Atrial fibrillation with RVR (3) PNA (pneumonia) (4) UTI (urinary tract infection) (5) SHANNAN (acute kidney injury) (6) DM (diabetes mellitus) (7) Chronic diastolic CHF (congestive heart failure) (8) History of CVA (cerebrovascular accident) (9) HTN (hypertension) (10) Hyperlipidemia (11) Hypernatremia Plan sepsis, sec. PNA, UTI, originally was on IV antibiotics, but was transition to ceftin PO when stable and no leukocytosis/infection. Patient had Hypoxia, SOB, resp insufficiency continue oxygen to keep sats 92 or > and monitored. Duonebs QID and PRN, prednisone 10 mg po bid Mucinex . Pt. remained stable and responded to treatment SHANNAN, Cr fluctuating due to lasix and diuresis. Lasix 10 mgh po daily, home dose was continued. labs were monitored until fluid ratios were stable. This last set of labs were considered her baseline. Labs monitored throughout stay. afib RVR, controlled rate heart rate in 50s, which is her baseline. Initially rapid rhythm was treated with Cardizem and Aminodarone. increase Imdur, continue Eliquis, until rate was stable. cardiology consult appreciated and followed until stable. DM II accuchecks AC/HS with ISS increased Blood glucose, ss control throughout stay. constipation treated with Colace scheduled BID PRN milk of magnesia Continue with Eliquis for DVT prophylaxis PT eval: needs rehab. Now that patient is medically stable, patient can return to rehab for strengthing. Plan of care and assessment update : D/W pt. DW , seen on her behalf D/W nurse Plan to d/c to rehab SNF today. Medically stable. On day of discharge, patient was seen per Dr. Helm. patient seen and examined agree with above assessment and plan ok to go to rehab discussed with patient, nursing staff and Molly MENSAH Pt Condition on Discharge: Stable Discharge Disposition: Discharge to SNF Discharge Instructions DIET: Follow Instructions for: Heart Healthy Diet Speech Therapy-Diet Recommends: Mechanical Soft, [place] Thickened Liquids Activities you can perform: Regular-No Restrictions Follow up Referrals: PCP Follow-up with Doe Lazo MD SNF/[facility]/ with [facility] [phone] New Medications: Insulin Detemir Inj (Levemir Inj) 1,000 unit/ 10 ML Vial 5 UNITS SQ BID Blood Sugar Management Days 30 Ref 0 INJECTION Continued Medications: Apixaban (Eliquis) 2.5 Mg Tab 2.5 MG PO BID Blood Clot Prevention Ref 0 TAB Atorvastatin (Atorvastatin) 10 Mg Tab 10 MG PO HS Cholesterol Management #30 Ref 0 TAB Bisacodyl Supp (Dulcolax Supp) 10 Mg Supp 10 MG RECTAL DAILY PRN CONSTIPATION #12 Ref 0 SUPP Fluticasone Nasal [place] (Fluticasone Nasal [place]) 50 Mcg/Act Naspr 50 MCG EACH NARE BID 50 mcg/spray Allergy Management #1 Ref 0 BOTTLE Hydralazine (Hydralazine) 50 Mg Tab 50 MG PO TID Take with a meal Blood Pressure Management Ref 0 TAB Insulin Aspart Inj (Novolog Flexpen Inj) 300 Unit/3 Ml Pen 1 UNITS SQ Blood Sugar Management #1 Ref 0 PEN Isosorbide Mononitrate ER (Isosorbide Mononitrate ER) 30 Mg [place] 30 MG PO DAILY Prevent Chest Pain #30 Ref 0 TAB Loratadine (Loratadine) 10 Mg Tab 10 MG PO DAILY Allergy Management Ref 0 TAB Losartan (Losartan) 100 Mg Tab 100 MG PO DAILY Blood Pressure Management #30 Ref 0 TAB Mirtazapine (Mirtazapine) 15 Mg Tab 15 MG PO HS Depression Control #30 Ref 0 TAB Nifedipine ER 24 HR (Nifedipine ER 24 HR) 60 Mg Tab 60 MG PO DAILY #30 Ref 0 TAB Omeprazole (Omeprazole) 20 Mg Tab 20 MG PO DAILY #30 Ref 0 TAB Potassium Chloride ER (Potassium Chloride ER) 10 Meq Cap 10 MEQ PO BID Electrolyte Replacement #60 Ref 0 CAP Prednisone (Prednisone) 5 Mg Tab 5 MG PO DAILY Ref 0 TAB Pregabalin (Lyrica) 100 Mg Cap 100 MG PO BID #60 Ref 0 CAP Tiotropium Inh (Spiriva Handihaler) 18 Mcg Cap 18 MCG INH DAILY 1 capsule = 18 mcg COPD #30 Ref 0 CAP Torsemide (Torsemide) 10 Mg Tab 10 MG PO DAILY #30 Ref 0 TAB Discontinued Medications: Ipratropium-Albuterol Neb (Duoneb) 0.5-2.5 Mg/3 Ml Neb 1 NEBULE INH Q8HR NEB Breathing Treatment #90 Ref 0 NEBULE Nifedipine (Nifedipine ER) 90 Mg Tab Tramadol (Tramadol) 50 Mg Tab 50 MG PO Q6H PRN PAIN Ref 0 TAB Molly Wang April 10, 2017 16:54
[2017-04-10] MEDS: MIRTAZAPINE 15 MG TAB PO SCH ×3 (21:00→22:01)
[2017-04-10] MEDS: ATORVASTATIN 10 MG TAB PO SCH (22:00)
[2017-04-11] VITALS (9 sets, daily range): BP systolic 140–188; BP diastolic 67–85; PULSE 46–52; RESP 12–18; TEMP 97.4–98.5; O2SAT 96–98
[2017-04-11] MEDS: hydrALAZINE HCL 50 MG TAB PO SCH ×3 (00:22→12:00)
[2017-04-11] MEDS: cloNIDine HCL 0.1 MG TAB PO PRN (05:13)
[2017-04-11] MEDS: INSULIN NovoLIN REGULAR SUPPLEMENTAL SCALE SQ SCH ×2 (05:21→11:00)
[2017-04-11] MEDS: ISOSORBIDE MONONITRATE 60 MG TAB PO SCH (06:01)
[2017-04-11] MEDS: FLUTICASONE PROPIONATE 50 MCG/ACT 16 GM NASAL SPRAY EACH NARE SCH (09:00)
[2017-04-11] MEDS: SODIUM CHLORIDE 0.9% FLUSH 10 ML FLUSH IV FLUSH SCH (09:00)
[2017-04-11] MEDS: LORATADINE 10 MG TAB PO SCH (09:27)
[2017-04-11] MEDS: predniSONE 10 MG TAB PO SCH (09:27)
[2017-04-11] MEDS: LOSARTAN 50 MG TAB PO SCH (09:27)
[2017-04-11] MEDS: APIXABAN 2.5 MG TABLET PO SCH (09:27)
[2017-04-11] MEDS: PANTOPRAZOLE SOD 20 MG DELAYED RELEASE TAB PO SCH (09:27)
[2017-04-11] MEDS: PROPAFENONE HCL 150 MG TAB PO SCH (09:27)
[2017-04-11] MEDS: guaiFENesin E.R. 600 MG TAB PO SCH (09:27)
[2017-04-11] MEDS: POLYETHYLENE GLYCOL 17 GM PKG PO SCH (09:27)
[2017-04-11] MEDS: CARVEDILOL 12.5 MG TAB PO SCH (09:28)
[2017-04-11] MEDS: CEFUROXIME AXETIL 500 MG TAB PO SCH (09:28)
[2017-04-11] MEDS: amLODIPine BESYLATE 5 MG TAB PO SCH (09:28)
[2017-04-11] MEDS: TORSEMIDE 5 MG TAB PO SCH (09:28)
[2017-04-11] MEDS: DOCUSATE SODIUM 100 MG CAP PO SCH (09:28)
[2017-04-11] MEDS: INSULIN DETEMIR 100 UNITS/ML VIAL SQ SCH (09:45)
[2017-04-11] MEDS: POTASSIUM CHLORIDE 10 MEQ CAP PO SCH (09:50)
[2017-04-11] MEDS: PREGABALIN 100 MG CAP PO SCH (09:50)
[2017-04-11] MEDS: TIOTROPIUM BROMIDE 18 MCG INH INH SCH (09:51)
--- NOTE | 2017-04-11 13:41 | HHI.PR ---
Subjective Interval History awake alert on arousal, sleepy otherwise appears to be at baseline no acute issues BP controlled discharge was held yesterday sec to bed not available at [facility] awaiting transport today no family at bed side Review of Systems Constitutional Constitutional: Fatigue, Weakness Pulmonary Respiratory: Shortness of Breath (mild) Cardiology CV: Chest Pain (no) Musculoskeletal MS: Weakness Neurologic Neurologic: Lethargic (at times) Psychiatric Psychiatric: Normal Mood Vitals/Results Intake & Output 04/10/17 04/10/17 04/11/17 15:00 23:00 07:00 Intake Total 480 ml 240 ml Balance 480 ml 240 ml Intake Oral 480 ml 240 ml # Voids 3 2 # Bowel Movements 0 Vital Signs Vital Signs Date Time Temp Pulse Resp B/P Pulse Ox O2 Delivery O2 Flow Rate FiO2 04/11/17 10:33 97 Nasal Cannula 2.00 04/11/17 08:00 96 Nasal Cannula 2.00 04/11/17 08:00 98.5 51 16 140/67 96 04/11/17 08:00 51 04/11/17 06:00 50 04/11/17 05:00 50 04/11/17 04:00 97.4 52 12 188/85 97 04/11/17 04:00 97 Nasal Cannula 2.00 04/11/17 04:00 50 04/11/17 03:00 50 04/11/17 02:00 50 04/11/17 01:00 46 04/11/17 00:00 97.6 47 18 176/85 98 04/11/17 00:00 48 04/11/17 00:00 98 Nasal Cannula 2.00 04/10/17 23:00 50 04/10/17 22:00 52 04/10/17 21:00 54 04/10/17 20:00 98.4 53 16 165/79 96 04/10/17 20:00 96 Nasal Cannula 2.00 04/10/17 20:00 54 04/10/17 19:00 59 04/10/17 18:00 50 04/10/17 17:00 54 04/10/17 16:00 52 04/10/17 16:00 98.1 54 16 127/59 97 04/10/17 16:00 Nasal Cannula 2.00 04/10/17 15:00 52 04/10/17 14:00 54 CBC/BMP: 04/08/17 0510 04/08/17 0510 Physical Exam General General Appearance: Well Developed, No Acute Distress, Comfortable Eyes Eye Exam: Pupils Equal, Pupils Reactive Ears & Nose Ears & Nose Exam: Nasal Mucosa [place] Throat Throat Exam: Oral Mucosa [place] & Moist Neck Neck Exam: Neck Supple Pulmonary Resp Exam: Rhonchi Resp Remarks improving Cardiology CV Exam: Regular, Normal Sinus Rhythm, Murmur Gastrointestinal/Abdomen GI Exam: Soft, Non-Tender, Bowel Sounds Present, Non-Distended Musculoskeletal MS Exam: Joints Intact Integumentary Skin Exam: Warm, Dry Extremeties Extremities Exam: Pedal Pulses Palpable Neurologic Neuro Exam: Alert, Awake, Oriented, Speech Clear, Moving All Extremities, No Focal Deficits Psychiatric Psych Exam: Appropriate Responses Assessment/Plan Problem List: (1) Sepsis (2) Atrial fibrillation with RVR (3) PNA (pneumonia) (4) UTI (urinary tract infection) (5) SHANNAN (acute kidney injury) (6) DM (diabetes mellitus) (7) Chronic diastolic CHF (congestive heart failure) (8) History of CVA (cerebrovascular accident) (9) HTN (hypertension) (10) Hyperlipidemia (11) Hypernatremia Assessment/Plan Plan sepsis, sec. PNA, UTI transition to ceftin PO Hypoxia, SOB, resp insufficiency continue oxygen to keep sats 92 or > Duonebs QID and PRN prednisone 5 mg po bid Mucinex SHANNAN, Cr fluctuating on torsemide 10 mgh po daily, home dose Still shows elevated BUN, creatinine afib RVR, controlled rate heart rate in 50s, Imdur, Amlodipine, continue Eliquis BP controlled cardiology consult appreciate DM II accuchecks AC/HS with ISS increased Blood glucose, ss control constipation Colace scheduled BID PRN milk of magnesia Continue with Eliquis for DVT prophylaxis PT eval: needs rehab Labs in am D/W pt. D/W nurse Plan to d/c to rehab SNF today. Problem Qualifiers (1) Sepsis: Qualified Code: A41.9 - Sepsis, due to unspecified organism (2) PNA (pneumonia): (3) UTI (urinary tract infection): Qualified Code: N30.00 - Acute cystitis without hematuria (4) DM (diabetes mellitus): (5) HTN (hypertension): Qualified Code: I10 - Essential hypertension (6) Hyperlipidemia: Qualified Code: E78.5 - Hyperlipidemia, unspecified hyperlipidemia type Do Helm MD April 11, 2017 13:41
--- NOTE | 2017-04-11 15:17 | HHI.PR ---
Subjective Remarks 77 YOWF with Basal infilt, AF,DM,CHF No fever Denies CP or palpitations Feels little better Evaluated by COLLECTIONS CURATOR Tolerates PO Objective Vital Signs Vital Signs Date Time Temp Pulse Resp B/P Pulse Ox O2 Delivery O2 Flow Rate FiO2 04/11/17 10:33 97 Nasal Cannula 2.00 04/11/17 08:00 96 Nasal Cannula 2.00 04/11/17 08:00 98.5 51 16 140/67 96 04/11/17 08:00 51 04/11/17 06:00 50 04/11/17 05:00 50 04/11/17 04:00 97.4 52 12 188/85 97 04/11/17 04:00 97 Nasal Cannula 2.00 04/11/17 04:00 50 04/11/17 03:00 50 04/11/17 02:00 50 04/11/17 01:00 46 04/11/17 00:00 97.6 47 18 176/85 98 04/11/17 00:00 48 04/11/17 00:00 98 Nasal Cannula 2.00 04/10/17 23:00 50 04/10/17 22:00 52 04/10/17 21:00 54 04/10/17 20:00 98.4 53 16 165/79 96 04/10/17 20:00 96 Nasal Cannula 2.00 04/10/17 20:00 54 04/10/17 19:00 59 04/10/17 18:00 50 04/10/17 17:00 54 04/10/17 16:00 52 04/10/17 16:00 98.1 54 16 127/59 97 04/10/17 16:00 Nasal Cannula 2.00 I/O 04/10/17 04/10/17 04/10/17 04/11/17 04/11/17 04/11/17 07:00 15:00 23:00 07:00 15:00 23:00 Intake Total 480 ml 480 ml 240 ml Balance 480 ml 480 ml 240 ml Intake Oral 480 ml 480 ml 240 ml IV Total 0 ml # Voids 4 3 2 # Bowel Movements 0 0 Result Diagram: 04/08/17 0510 04/08/17 0510 Objective Remarks GENERAL: Elderly female mild sob SKIN: Warm and dry. HEAD: Normocephalic. EYES: No scleral icterus. No injection or drainage. NECK: Supple, trachea midline. No JVD or lymphadenopathy. CARDIOVASCULAR: Regular rate and rhythm without murmurs, gallops, or rubs. RESPIRATORY: Breath sounds equal bilaterally. No accessory muscle use. Basal rales GASTROINTESTINAL: Abdomen soft, non-tender, nondistended. MUSCULOSKELETAL: No cyanosis, , ++ edema. BACK: Nontender without obvious deformity. No CVA tenderness. A/P Assessment and Plan Basl Pneumonia AF CHF DM HTN PLAN: Supplement 02 with NC to keep sat >90% Aerosol nebs Diltiazem for rate controll Eliquis 2.5 mg bid Encourage PO DC Plans for [employer]. Alvaro Wilcox MD April 11, 2017 15:17
== END 2017-04-11 15:10 | DRG 871 ==
LOC: NEPE 09:29 → NEDA 14:03 → HCIS 19:35
PROVIDERS: ADMIT Specialist; ATTEND Specialist
DX: A41.9 Sepsis, unspecified organism (principal); J18.9 Pneumonia, unspecified organism; J96.91 Respiratory failure, unspecified with hypoxia; N17.9 Acute kidney failure, unspecified; E87.0 Hyperosmolality and hypernatremia; I13.0 Hypertensive heart and chronic kidney disease with heart failure and stage 1 through stage 4 chronic kidney disease, or unspecified chronic kidney disease; E46 Unspecified protein-calorie malnutrition; I50.32 Chronic diastolic (congestive) heart failure; N30.00 Acute cystitis without hematuria; E11.22 Type 2 diabetes mellitus with diabetic chronic kidney disease; I48.91 Unspecified atrial fibrillation; I27.2 Other secondary pulmonary hypertension; N18.9 Chronic kidney disease, unspecified; E87.6 Hypokalemia; E11.65 Type 2 diabetes mellitus with hyperglycemia; K21.9 Gastro-esophageal reflux disease without esophagitis; I25.10 Atherosclerotic heart disease of native coronary artery without angina pectoris; I48.0 Paroxysmal atrial fibrillation; I08.0 Rheumatic disorders of both mitral and aortic valves; E78.5 Hyperlipidemia, unspecified; K59.00 Constipation, unspecified; M19.90 Unspecified osteoarthritis, unspecified site; M85.80 Other specified disorders of bone density and structure, unspecified site; T50.1X5A Adverse effect of loop [high-ceiling] diuretics, initial encounter; Z79.01 Long term (current) use of anticoagulants; Z79.4 Long term (current) use of insulin; Z86.73 Personal history of transient ischemic attack (TIA), and cerebral infarction without residual deficits; Z88.8 Allergy status to other drugs, medicaments and biological substances; Z91.012 Allergy to eggs; Z91.041 Radiographic dye allergy status; Z96.653 Presence of artificial knee joint, bilateral
CPT/HCPCS: 36600; 51702; 70450; 70551; 71010; 74176; 80048; 80053; 80202; 81001; 82550; 82805; 82948; 83036; 83605; 83735; 83880; 84100; 84439; 84443; 84484; 85007; 85025; 85027; 85610; 85730; 87040; 87086; 87804; 93005; 93306; 94640; 94664; 96361; 96365; 96367; 96376; J0171; J0461; J0692; J1815; J2060; J2405; J2920; J3370; J7030; J7040; J7050; J7070; J7512

== ENCOUNTER → 2017-09-11 | Outpatient (CLI) | payer MEDICARE, OTHER ==
[~2017-09-11] MED LIST changes: -AMLO5CAP PO; +APIX2.5T PO; +ATOR10TA15 PO; +DULC10SU3 RECTAL; +FLUT50SP EACH NARE; -GABA100C4 PO; -GLUCTAB PO; +HYDR50TA15 PO; +ISOS30TA3 PO; +LEVEMIR SQ; +LORA10TA PO; -LORTA5 PO; +LOSA100T PO; -LOSA50 PO; +LYRI100C PO; +MIRTA15 PO; -NEXI40CA PO; +NIFE60TA58 PO; +NOVOINJ3 SQ; +OMEP20TA PO; +POTA10CA PO; +PRED5TAB PO; -PREG25 PO; +SPIRCAP INH; +TORS10TA2 PO; -WALKMIS6 XX
--- NOTE | 2017-09-11 10:55 | RADRPT ---
EXAM DATE/TIME: 09/11/2017 00:00 [place] COMPARISON: No previous studies available for comparison. INDICATIONS : Dysphagia. FLUORO TIME: 2.1 minutes IMAGE COUNT: 0 CONTRAST: Dose as prescribed by speech pathologist. MEDICAL HISTORY : Hypertension. 2 strokes. H/O pneumonia 6 times. Diabetes. SURGICAL HISTORY : Hysterectomy. Neck surgery 12 years ago. ENCOUNTER: Initial ACUITY: 1 day PAIN SCORE: 0/10 LOCATION: Esophagus. FINDINGS: A modified barium swallow was performed with speech pathology. Patient was given a variety of liquids and solids to swallow. Mild laryngeal penetration is seen, but no oma episodes of aspiration. For a full detailed report, see report by the speech pathologist. CONCLUSION: Modified barium swallow performed in conjunction with speech pathology. Brian Min MD on September 11, 2017 at 10:53 Board Certified Radiologist. This report was verified electronically.
== END ==
LOC: HRAD 10:04
PROVIDERS: ATTEND Family Medicine
DX: R13.10 Dysphagia, unspecified (principal)
CPT/HCPCS: 74230; 92611; G8996; G8997; G8998